=== PATIENT | male | born 1970 | race Caucasian/White ===

== ENCOUNTER 2020-09-08 07:34 | Outpatient (REF) | payer SELFPAY | END 2020-09-08 07:35 | disposition home or self-care (01) | LOC: HO.LAB 07:34 | PROVIDERS: Visit Provider Internal Medicine | DX: Z20.828 Contact with and (suspected) exposure to other viral communicable diseases (principal) | CPT/HCPCS: C9803; U0003 ==

== ENCOUNTER 2021-06-13 01:39 | Emergency (ER) | payer SELFPAY ==
[2021-06-13 01:47] VITALS: BP 157/97; PULSE 79; RESP 16; TEMP 35.9; O2SAT 97; BMI 31.2
[2021-06-13 04:00] VITALS: BP 148/67; PULSE 79; RESP 16; TEMP 35.9; O2SAT 97
--- NOTE | 2021-06-13 05:03 | PC.NURSE ---
patient coming up to the desk, asking when he will be seen by a provider. provider is tied up with multiple critically ill patients. provider is aware that patient is waiting to be seen.
--- NOTE | 2021-06-13 05:18 | PC.NURSE ---
Patient upset that he has been waiting to see the ED provider for 3 hrs. I explained that the provider would be over to see him as soon as she was available. He asked if we could not see him then just tell him. I assured him that he would be seen by a provider but that it might not be for at least another hour. Patient stated that he had to go to work and left without being seen. He stated I only came here to get the wax taken out of my ear. I apologized for the wait.
== END 2021-06-13 05:38 | disposition left against medical advice (07) ==
PROVIDERS: Emergency Provider Emergency Medicine; PCP Hospitalist
DX: H92.03 Otalgia, bilateral (principal); H61.21 Impacted cerumen, right ear
CPT/HCPCS: 99281; 99284

== ENCOUNTER → 2022-06-28 11:01 | Outpatient (BNVA) | payer SELFPAY | PROVIDERS: PCP Hospitalist; Visit Provider Physician Assistant Medical | DX: Z02.79 Encounter for issue of other medical certificate (principal) ==

== ENCOUNTER 2024-04-22 09:10 | Outpatient (AMB) | payer SELFPAY ==
--- NOTE | 2024-04-22 10:07 | AM.OFFWIN_ITS ---
Intake Vital Signs 04/22/24 10:08 Height 6 ft Weight 208 lb BMI 28.2 BP 120/82 Blood Pressure Location Rt brachial Position Sitting Pulse 76 Pulse Source Pulse Oximeter Pulse Oximetry (%) 98 Oxygen Delivery Method Room Air Intake Visit Reasons: Hemorroids/ [phone] Intake Note: pt here c/o hemorrhoids and issues having a BM, pt states it takes him about 4- 5hrs to be able to evacuate which has been going on for about 3yrs. Patient Tobacco Use Status: Tobacco use Unknown Allergies No Known Allergies Allergy (Verified 04/22/24 10:17) Do you need a note to return to daycare/school/sports/work: No HPI Hemorroids/ [phone] HPI Details This note is constructed using voice recognition software. While every effort has been made to ensure accuracy, substation engineer errors may have been included. The patient is a 53 year old male who presents to the clinic today with chronic constipation and hemorrhoids for the past several years. He notes that he has been seen a few times walk-in clinic and has been prescribed different medications to help with moving his bowels, however they never seems to completely work. As a result of being constipated spends several hours in the morning attempting to evacuate his bowels without success sometimes up to 5 hours. He will spend an hour and a have in 1 sitting before getting up which he notes does seem to worsen his hemorrhoids. He also notes that in the past year he has lost at least 25 lb intentionally, by cutting out certain foods, as well as increasing his dietary fiber by having at least 2-3 servings of fruits and vegetables each day. He reports that he drinks water very regularly, and does not have caffeine, aside from 5 hour energy drinks. When he does take the 5 hour energy he is able to evacuate his bowels slightly better. He has tried Metamucil daily for quite some time without any relief. He is not interested in being prescribed any medication today, and is simply interested in being established with a primary care provider, so that he can both address his constipation issues as well as his outstanding health screenings. He has never had a colonoscopy, and does wish to have 1. [facility] Social History Alcohol intake: unknown Patient Tobacco Use Status: Tobacco use Unknown Review of Systems Const All systems reviewed & are unremarkable except as noted in HPI and below Physical Exam Vital Signs: Last Vital Signs Pulse 76 04/22/24 10:08 BP 120/82 04/22/24 10:08 Pulse Ox 98 04/22/24 10:08 Oxygen Delivery Method Room Air 04/22/24 10:08 BMI result Body Mass Index 28.2 Const General: cooperative, healthy appearing, comfortable, no acute distress and alert Orientation/consciousness: patient oriented x3 Limitations: no limitations Resp Effort & Inspection: normal respiratory effort and able to speak in complete sentences Auscultation: clear to auscultation bilaterally Cardio Jugular venous distension: no JVD Palpation: normal PMI Rate: regular rate Heart sounds: S1 normal heart sound present, S2 normal heart sound present, no click, no gallops, no murmurs and no rubs GI Other: Patient declined rectal exam or visualization of hemmorhoids. Inspection: Yes normal to inspection, No abdominal wall ecchymosis and No distended Palpation (GI): Soft to palpation and nontender Percussion: Yes normal to percussion Auscultation: normal bowel sounds Skin General skin exam: no rashes or lesions noted, elasticity normal and turgor normal Neuro General: patient oriented x3 Psych Appearance: grossly normal Mental Status: mental status grossly normal Speech and movement: Normal speech and movement present Affect: normal affect Assessment & Plan Assessment & Plan (1) Constipation: Code(s): K59.00 - Constipation, unspecified Qualifiers: Constipation type: unspecified constipation type Qualified Code(s): K59.00 - Constipation, unspecified Plan: Chronic in nature, advised ongoing use of increased dietary and supplemental fiber. Consider daily Metamucil or similar, versus MiraLax. Offered prescription of laxatives and softeners, however patient declined at this time. Advised patient to follow with PCP, he was provided with referral phone number for today for a primary care provider. Discussed that patient does require at bare minimum a screening colonoscopy due to age, but may benefit from diagnostic she had additional concerns arise. Advised patient to continue with hydration efforts, and additional walking to help with bowel motility. Advised patient to keep stool on softer side to reduce risk of worsening hemorrhoids. Given lack of bleeding, or concerns of bleeding at this time, patient advised to follow up with PCP as needed. Plan See above for full details and plan. Coding Level of Care Code Est Pt Level 3 (26228) Diagnoses Constipation, unspecified constipation type K59.00 Constipation type: unspecified constipation type
[2024-04-22 10:08] VITALS: BP 120/82; PULSE 76; O2SAT 98; BMI 28.2
== END 2024-04-22 10:45 | disposition home or self-care (01) ==
PROVIDERS: Visit Provider Registered Nurse
DX: K59.00 Constipation, unspecified (principal)
CPT/HCPCS: 99213

== ENCOUNTER → 2024-10-14 08:07 | Outpatient (BNVA) | payer SELFPAY | PROVIDERS: Visit Provider Physician Assistant Medical | DX: Z02.79 Encounter for issue of other medical certificate (principal) ==

== ENCOUNTER 2024-12-24 10:51 | Inpatient (IN) | payer OTHER, SELFPAY ==
[2024-12-24] VITALS (26 sets, daily range): BP systolic 104–168; BP diastolic 50–94; PULSE 69–100; RESP 12–20; TEMP 36.6–36.9; O2SAT 95–100; BMI 29.1
--- NOTE | 2024-12-24 | ECG_ITS ---
Test Reason : SOB Blood Pressure : */* mmHG Vent. Rate : 76 BPM Atrial Rate : 76 BPM P-R Int : 146 ms QRS Dur : 82 ms QT Int : 390 ms P-R-T Axes : 51 -1 8 degrees QTcB Int : 438 ms Normal sinus rhythm Normal ECG No previous ECGs available Referred By: Anai Abraham Electronically Signed By: MINA CREWS MD
--- NOTE | ~2024-12-24 | CT_ITS ---
EXAMINATION: CT CHEST WITHOUT CONTRAST CLINICAL INFORMATION: Shortness of breath. Cough. COMPARISON: None available. TECHNIQUE: Multidetector volumetric CT imaging of the chest was obtained without the IV contrast administration. Axial MIP volume rendering provided. Sagittal and coronal reformatted images were obtained. This CT examination was performed using dose optimization techniques as appropriate, variously including the following: *Automated exposure control *Adjustment of mA and/or kV according to patient size (this includes techniques or standardized protocols for targeted exams where dose is matched to indication/reason for exam; i.e. extremities or head) *Use of iterative reconstruction technique DLP: 305.40 mGy centimeter FINDINGS: INSTRUMENTATION CHEMIST: EKG wires overlapping the chest. LUNGS: There is a 3 mm noncalcified pulmonary groundglass in the apical posterior segment left upper lung lobe. No bronchiectasis. No honeycombing. Millimeter noncalcified nodule beneath the right minor fissure. Respiratory airways is patent. MEDIASTINUM: No lymphadenopathy. No aneurysm, thoracic aorta. No pericardial effusion. Heart is not enlarged. PLEURA: No pleural effusion. No pneumothorax. AXILLA: No lymphadenopathy. UPPER ABDOMEN: There is a 1.8 cm lobulated hypodensity in the right hepatic lobe. OSSEOUS STRUCTURES: Multilevel mild thoracic spondylosis. No acute fracture or listhesis. CT/CT chest w IV con IMPRESSION: Nonspecific less than 3 mm noncalcified pulmonary nodules, apical posterior segment left upper lung lobe and beneath the right minor fissure. Fleischner guidelines were followed. Electronically signed by: Ritchie Hernandez MD 12/24/2024 02:47 PM EDT
--- NOTE | ~2024-12-24 | CT_ITS ---
EXAMINATION: CT ABDOMEN AND PELVIS WITHOUT AND WITH CONTRAST CLINICAL INFORMATION: Shortness of breath. Anemia. Intermittent rectal bleeding. COMPARISON: None available. TECHNIQUE: Multidetector volumetric imaging was performed of the abdomen and pelvis before and after the IV administration of 80 mL of Omnipaque 350 strength intravenous contrast. Sagittal and coronal reformatted images were obtained on the technologist's workstation. This CT examination was performed using dose optimization techniques as appropriate, variously including the following: *Automated exposure control *Adjustment of mA and/or kV according to patient size (this includes techniques or standardized protocols for targeted exams where dose is matched to indication/reason for exam; i.e. extremities or head) *Use of iterative reconstruction technique. DLP: 1738.51 mGy centimeter. FINDINGS: LUNG BASES: No acute airspace disease, lung bases. LIVER, GALLBLADDER, AND BILIARY TREE: Liver measures 15 cm. There is a 2 mm low density in the right hepatic dome, too small to be fully characterized. There is a 1.8 cm septated and lobulated low density in the right hepatic lobe. The portal veins are patent. The intrahepatic portion of the IVC is patent. No pericholecystic fluid collection or gallbladder wall thickening. Questionable small tiny gallstones. No intrahepatic or extrahepatic biliary ductal dilatation.. PANCREAS: No focal lesion. No peripancreatic fluid collection. No main pancreatic ductal dilatation. SPLEEN: 10 cm. No focal lesion. ADRENAL GLANDS: No nodular lesions. KIDNEYS AND URETERS: No hydronephrosis. No nephrolithiasis. There is a 9 mm exophytic septated lesion in the anterior midportion right kidney. BLADDER: Fluid-filled. GASTROINTESTINAL TRACT: There is no extraluminal/IV contrast extravasation pulling into the large intestine I do not see gross masses in the large intestine. There is no wall thickening. There is no intestinal obstruction pattern. Abundant stool in the right hemicolon. No ascites. No pneumoperitoneum. Small 3 mm gas-filled diverticulum morphology pattern in the second and third portion of the duodenum. No pneumatosis intestinalis. The appendix appears short. ABDOMINAL WALL: No gross umbilical hernia. LYMPH NODES: Nonspecific prominent lymph nodes, mesenteric and retroperitoneal. VASCULAR: Mixed plaques abdominal aorta wall without aneurysm or dissection. PELVIC VISCERA: No enlarged prostate gland. OSSEOUS STRUCTURES: Moderate to severe spondylosis at L5-S1. CT/CT gi bleed abd pel wo/w IVcon IMPRESSION: Probable diverticula in the duodenum. No gross intraluminal hemorrhage, large intestine. 9 mm exophytic septated lesion, anterior midportion right kidney. 1.8 cm septated cystic lesion, right hepatic lobe. Moderate to severe spondylosis L5-S1. Fleischner guidelines were followed. Electronically signed by: Ritchie Hernandez MD 12/24/2024 03:03 PM EDT
--- NOTE | 2024-12-24 11:31 | ED.GENADULT ---
HPI - General Adult General Chief complaint: Recheck/Abnormal Lab/Rx Stated complaint: transfusion sent in from [facility] Time Seen by Provider: 12/24/24 11:35 Source: patient Mode of arrival: ambulatory Limitations: no limitations History of Present Illness ED Provider: salena marie np HPI narrative: Patient is a 54-year-old male who presents emergency department for evaluation. Patient admits that over the past 3-4 weeks he has been feeling shortness of breath particularly with exertion, states he exercises daily walks with his dog up a hill/ up mountains. He has noticed that he is particularly short of breath when walking up hill which is abnormal for him. Additionally states that while doing pushups he has noted that once he gets up he is short of breath and lightheaded. Symptoms were not resolving after the past 3-4 weeks which brought him to an urgent care yesterday. He states that he had a chest x-ray done as well as blood work. He received a call from the urgent care today advising him to promptly present to emergency department for evaluation, that he was anemic and needed a blood transfusion with a hemoglobin of 6.7, and states they told me I need to get a CT on my chest . 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 He does admit to having intermittent rectal bleeding typically 2 to 3 times a week for at least 12 years. He has noticed it to be bright red as well as dark red, mainly with bowel movements but has also experienced this without having a bowel movement. He states that he has a friend whose is a physician customer service assistant an ordered a colonoscopy 2 months ago through [facility] and was advised that there were 2 polyps of which were removed but no cancerous findings. he denies any frequent usage of NSAID, reports that he may consume alcohol once weekly on the weekend 2-3 drinks, uses chewing tobacco. He has not been seen by a doctor aside who was in at least 12 years. Denies fevers, chills, headache, vision changes, chest pain, productive cough, nausea, vomiting, recent unintentional weight loss, constipation, diarrhea Related Data Home Medications ?Medication ?Instructions ?Recorded ?Confirmed finasteride 1 mg tablet (Propecia) 1 mg PO DAILY 11/09/21 Previous Rx's ?Medication ?Instructions ?Recorded hydrocortisone acetate 25 mg 25 mg TN BEDTIME #24 ea 11/21/22 rectal suppository (Anusol-HC) sennosides 8.6 mg-docusate sodium 1 tab-cap PO BEDTIME 90 days #90 11/21/22 50 mg tablet (Senokot-S) tabs Allergies Allergy/AdvReac Type Severity Reaction Status Date / Time No Known Allergies Allergy Verified 12/24/24 11:23 Review of Systems Review of Systems: Yes all other systems are reviewed and are negative [facility] Past Medical History Attestation statement: The following information was validated with the patient. Source: old records reviewed Social History Social History (System 06/09/24 @ 16:30 by Nichole Oliver) Alcohol intake: unknown Patient Tobacco Use Status: Tobacco use Unknown Advance Directives: Yes Advance Directives Information Provided: Yes Advance Directives on File: No Physical Exam ED Vital Signs: Vital Signs - 24 hr 12/24/24 11:21 12/24/24 14:37 12/24/24 14:55 Temperature 98.4 F 98.2 F 97.9 F Pulse Rate 84 82 72 Respiratory Rate 18 18 20 Blood Pressure 138/71 134/81 135/87 Pulse Oximetry 98 Oxygen Delivery Method Room Air 12/24/24 16:24 Temperature 98.1 F Pulse Rate 72 Respiratory Rate 16 Blood Pressure 106/65 Pulse Oximetry 97 Oxygen Delivery Method Room Air BMI result Body Mass Index 29.1 Appearance: Alert.?Oriented to person, place and time. No acute distress.?Normal affect. Eyes: Pupils equal, round and reactive to light.? ENT: Pharynx normal.?? Neck: Normal inspection.? Neck supple.?? CVS: Heart sounds normal. Normal heart rate and rhythm.? Pulses normal.?? Respiratory: No respiratory distress.? Lung sounds clear to auscultation bilaterally?? Abdomen: Soft and non-tender. Normoactive bowel sounds. No pulsatile mass.?? rectal: performed with biochemist ED JONNIE Soriano; external hemorrhoids non thrombosed without active bleeding, no palpable rectal mass. No appreciable obvious blood in the rectal vault Skin: Skin warm and dry.? Normal skin color.? .?? Extremities: No lower extremity edema.? Neuro: Moves all extremities spontaneously. Sensation intact bilaterally. No focal neuro deficits. Ambulates with normal steady gait. Course Course Course Narrative: RME, this is a rapid medical exam performed by Murtaza Pierre please refer to primary provider for complete H&P- 54-year-old male presents for evaluation of shortness of breath. Patient went to urgent care and reportedly had labs where his hemoglobin was ?6.7. ? He came with a chest x-ray which I brought over to the radiology department to have them upload into his chart. The patient was sent here for a blood transfusion and further workup. He reports rectal bleeding for the last 12 years. He does report having had a colonoscopy 2 months ago at a [facility] and was told ?everything is normal. ? he was not anticoagulated. Plan for labs including type and screen. Reevaluation(s) Reevaluation #1: CBC is without leukocytosis, has a microcytic anemia with critical hemoglobin of 5.7, hematocrit 21.2, iron panel consistent with EVERTON, no thrombocytopenia. chemistries overall unremarkable, no ESTEVAN, overall unremarkable LFTs. Anticipating admission to medicine service due to symptomatic anemia. spoke with hospitalist Salena RAZA Time: 12:14 Medications Administered Discontinued Medications Generic Name Dose Route Start Last Admin Trade Name Freq PRN Reason Stop Dose Admin Sodium Chloride 1,000 mls @ 999 mls/hr 12/24/24 12:00 12/24/24 13:40 Ns IV 12/24/24 13:00 Infused .Q1H1M MONSTER Infusion Iohexol 100 ml 12/24/24 14:34 12/24/24 14:35 Iohexol 350 Mg/Ml 100 Ml Infus..Btl IV 12/24/24 14:35 80 ml ONCE ONE Administration Medical Decision Making Medical Decision Making [facility] Narrative: patient is a 54-year-old male with no reported past medical history who presents emergency department for evaluation of ongoing shortness of breath over the past 3-4 weeks, outpatient evaluation at urgent care revealed critical anemia with a hemoglobin of 6.7, and advisement that he should receive a CT of the chest, he did present with a disc for CXR which was provided to Radiology. Admits to chronic nonproductive cough without any acute change. ROS is positive for intermittent rectal bleeding as per HPI, had a colonoscopy 2 months ago with findings of benign polyps otherwise unremarkable. Has not seen a primary care doctor in at least 12 years. Will obtain CBC to evaluate for leukocytosis/ anemia, CMP and lipase to evaluate for abnormal electrolytes /abnormal renal function/ abnormal hepatic/biliary function, type and screen. Obtaining CT of the chest abdomen and pelvis with GI bleed protocol, occult stool. Blood transfusion consent form reviewed with patient, indications for transfusion, possible complications, consent was obtained. Received call from lab regarding repeat hemoglobin today critical at 5.7 down 1 point as per verbalization of his result from urgent care yesterday. Differential Diagnosis Differential Diagnoses: The differential diagnosis associated with the presentation includes ( symptomatic anemia, GI bleed, urgency, EVERTON ) Admission/Observation Consideration of admission/observation: Escalation of care including admission/observation considered Lab Data MDM Lab Attestation statement: I reviewed the patient's lab results. ( See course narrative) 12/24/24 11:39 12/24/24 11:39 Labs: Lab Results 12/24/24 12/24/24 12/24/24 Range/Units 11:39 11:58 12:37 WBC 5.0 (4.8-10.8) X10*3/uL RBC 3.58 L (4.60-5.80) X10*6/uL Hgb 5.7 L* (14.0-18.0) g/dl Hct 21.2 L (42.0-52.0) % MCV 59.2 L (80.0-98.0) fL MCH 15.9 L (27.0-33.0) pg MCHC 26.9 L (31.0-36.0) g/dl RDW 20.1 H (11.0-16.0) % Plt Count 238 (160-400) X10*3/uL MPV 10.0 (9.4-12.4) fL Immature Gran % (Auto) 0.4 (0.0-0.4) % Neut % (Auto) 60.7 (45-73) % Lymph % (Auto) 26.0 (20-40) % [place] % (Auto) 11.3 H (2-11) % Eos % (Auto) 1.0 (0-4) % Baso % (Auto) 0.6 (0-2) % Lymph # (Auto) 1.3 (1.2-4.9) X10*3/uL [place] # (Auto) 0.6 (0.1-1.2) X10*3/uL Eos # (Auto) 0.1 (0.0-0.4) X10*3/uL Baso # (Auto) 0.0 (0.0-0.2) X10*3/uL Abs Immat Gran (auto) 0.02 (0.00-0.03) X10*3/uL Absolute Neuts (auto) 3.0 (2.0-8.3) x10*3/uL Absolute Nucleated RBC 0.000 (0.0-0.012) X10*3/uL Nucleated RBC % (auto) 0.0 (0.0-0.2) /100WBC Hold Purple Top SEE NOTE Sodium 139 (135-145) mmol/L Potassium 4.0 (3.3-5.1) mmol/L Chloride 110 H (96-108) mmol/L Carbon Dioxide 25 (22-29) mmol/L Anion Gap 8 L (12-20) BUN 18 H (9-16) mg/dL Creatinine 0.81 (0.5-1.4) mg/dL Estim Creat Clear Calc 123.2 Estimated GFR > 60 Random Glucose 85 (60-115) mg/dL Calcium 8.8 (8.4-10.2) mg/dL Magnesium 2.0 (1.6-2.6) mg/dL Iron 9 L (45-160) mcg/dL TIBC 387 (228-428) mcg/dL % Saturation 2 L (15-50) % Unsat Iron Binding 378 ug/dL Total Bilirubin 0.3 (0.0-1.0) mg/dL Direct Bilirubin 0.1 (0.0-0.5) mg/dL AST 33 (5-37) U/L ALT 8 (0-40) U/L Alkaline Phosphatase 30 L (39-117) U/L B-Natriuretic Peptide 52 (<100) pg/mL Total Protein 6.8 (6.5-8.0) g/dL Albumin 3.9 (3.5-5.0) g/dL Hold Red Top See Note Urine Color Urine Appearance Urine pH (5.0-9.0) Ur Specific [place] (1.005-1.025) Urine Protein (Neg-Trace) mg/dL Urine Glucose (UA) (Negative) mg/dL Urine Ketones (Negative) mg/dL Urine Blood (Negative) Urine Nitrite (Negative) Ur Leukocyte Esterase (Negative) Stool Occult Blood NEGATIVE (NEGATIVE) Urine Opiates Screen (Not Detect) Ur Buprenorphine Scrn (Not Detect) ng/mL Ur Oxycodone Screen (Not Detect) ng/mL Urine Methadone Screen (Not Detect) ng/mL Urine Fentanyl Screen (Not Detect) Ur Barbiturates Screen (Not Detect) Ur Phencyclidine Scrn (Not Detect) Ur Amphetamines Screen (Not Detect) U Benzodiazepines Scrn (Not Detect) Urine Cocaine Screen (Not Detect) U Marijuana (THC) Screen (Not Detect) Blood Type A Positive Antibody Screen NEGATIVE Crossmatch See Detail 12/24/24 Range/Units 12:45 WBC (4.8-10.8) X10*3/uL RBC (4.60-5.80) X10*6/uL Hgb (14.0-18.0) g/dl Hct (42.0-52.0) % MCV (80.0-98.0) fL MCH (27.0-33.0) pg MCHC (31.0-36.0) g/dl RDW (11.0-16.0) % Plt Count (160-400) X10*3/uL MPV (9.4-12.4) fL Immature Gran % (Auto) (0.0-0.4) % Neut % (Auto) (45-73) % Lymph % (Auto) (20-40) % [place] % (Auto) (2-11) % Eos % (Auto) (0-4) % Baso % (Auto) (0-2) % Lymph # (Auto) (1.2-4.9) X10*3/uL [place] # (Auto) (0.1-1.2) X10*3/uL Eos # (Auto) (0.0-0.4) X10*3/uL Baso # (Auto) (0.0-0.2) X10*3/uL Abs Immat Gran (auto) (0.00-0.03) X10*3/uL Absolute Neuts (auto) (2.0-8.3) x10*3/uL Absolute Nucleated RBC (0.0-0.012) X10*3/uL Nucleated RBC % (auto) (0.0-0.2) /100WBC Hold Purple Top Sodium (135-145) mmol/L Potassium (3.3-5.1) mmol/L Chloride (96-108) mmol/L Carbon Dioxide (22-29) mmol/L Anion Gap (12-20) BUN (9-16) mg/dL Creatinine (0.5-1.4) mg/dL Estim Creat Clear Calc Estimated GFR Random Glucose (60-115) mg/dL Calcium (8.4-10.2) mg/dL Magnesium (1.6-2.6) mg/dL Iron (45-160) mcg/dL TIBC (228-428) mcg/dL % Saturation (15-50) % Unsat Iron Binding ug/dL Total Bilirubin (0.0-1.0) mg/dL Direct Bilirubin (0.0-0.5) mg/dL AST (5-37) U/L ALT (0-40) U/L Alkaline Phosphatase (39-117) U/L B-Natriuretic Peptide (<100) pg/mL Total Protein (6.5-8.0) g/dL Albumin (3.5-5.0) g/dL Hold Red Top Urine Color Yellow Urine Appearance Clear Urine pH 7.5 (5.0-9.0) Ur Specific [place] <= 1.005 (1.005-1.025) Urine Protein Negative (Neg-Trace) mg/dL Urine Glucose (UA) Negative (Negative) mg/dL Urine Ketones Negative (Negative) mg/dL Urine Blood Negative (Negative) Urine Nitrite Negative (Negative) Ur Leukocyte Esterase Negative (Negative) Stool Occult Blood (NEGATIVE) Urine Opiates Screen Not Detected (Not Detect) Ur Buprenorphine Scrn Not Detected (Not Detect) ng/mL Ur Oxycodone Screen Not Detected (Not Detect) ng/mL Urine Methadone Screen Not Detected (Not Detect) ng/mL Urine Fentanyl Screen Not Detected (Not Detect) Ur Barbiturates Screen Not Detected (Not Detect) Ur Phencyclidine Scrn Not Detected (Not Detect) Ur Amphetamines Screen Not Detected (Not Detect) U Benzodiazepines Scrn Not Detected (Not Detect) Urine Cocaine Screen Not Detected (Not Detect) U Marijuana (THC) Screen Not Detected (Not Detect) Blood Type Antibody Screen Crossmatch Radiology Impression Discussion of test interpretation with radiology: I have reviewed the radiologist's reading. Radiologist Impression: CT/CT chest w IV con IMPRESSION: Nonspecific less than 3 mm noncalcified pulmonary nodules, apical posterior segment left upper lung lobe and beneath the right minor fissure. Fleischner guidelines were followed. CT/CT gi bleed abd pel wo/w IVcon IMPRESSION: Probable diverticula in the duodenum. No gross intraluminal hemorrhage, large intestine. 9 mm exophytic septated lesion, anterior midportion right kidney. 1.8 cm septated cystic lesion, right hepatic lobe. Moderate to severe spondylosis L5-S1. External Record Review External record reviewed: Outpatient record Discharge Plan Discharge Clinical Impression: Symptomatic anemia, Rectal bleed Patient Disposition: Admitted As Inpatient
[2024-12-24 11:44] LABS: MANUAL DIFF FLAG NO
[2024-12-24 11:50] LABS: Basophils Percent Auto 0.6 % (0-2); Eosinophils Absolute Auto 0.1 X10*3/uL (0.0-0.4); Hematocrit 21.2 % (42.0-52.0); Imm Gran Abs Auto 0.02 X10*3/uL (0.00-0.03); Imm Gran Pct Auto 0.4 % (0.0-0.4); Lymphocytes Absolute Auto 1.3 X10*3/uL (1.2-4.9); Mean Corpuscular HGB Conc 26.9 g/dl (31.0-36.0); Mean Corpuscular Hemoglobin 15.9 pg (27.0-33.0); Monocytes Absolute Auto 0.6 X10*3/uL (0.1-1.2); Monocytes Percent Auto 11.3 % (2-11); Neutrophils Percent Auto 60.7 % (45-73); Platelet Count 238 X10*3/uL (160-400); Red Blood Count 3.58 X10*6/uL (4.60-5.80); Red Cell Distribution Width 20.1 % (11.0-16.0)
[2024-12-24 11:53] LABS: Mean Corpuscular Volume 59.2 fL (80.0-98.0)
[2024-12-24 11:55] LABS: Hemoglobin 5.7 g/dl (14.0-18.0)
[2024-12-24 12:05] LABS: OBS Int Ctl Valid YES; OBS1 NEGATIVE (NEGATIVE)
[2024-12-24 12:37] LABS: Alanine Aminotransferase 8 U/L (0-40); Albumin Level 3.9 g/dL (3.5-5.0); Alkaline Phosphatase 30 U/L (39-117); Anion Gap 8 (12-20); Aspartate Amino Transferase 33 U/L (5-37); Bilirubin Direct 0.1 mg/dL (0.0-0.5); Bilirubin Total 0.3 mg/dL (0.0-1.0); Blood Urea Nitrogen 18 mg/dL (9-16); Calcium 8.8 mg/dL (8.4-10.2); Carbon Dioxide 25 mmol/L (22-29); Chloride 110 mmol/L (96-108); Creatinine Clr Calc Pharmacy 123.2; Estimated Glomerular Filt Rate > 60; Glucose Random 85 mg/dL (60-115); Iron 9 mcg/dL (45-160); Percent Iron Saturation 2 % (15-50); Sodium 139 mmol/L (135-145); Total Iron Binding Capacity 387 mcg/dL (228-428); Total Protein 6.8 g/dL (6.5-8.0); Unsaturated Iron Binding 378 ug/dL
[2024-12-24] MEDS: 0.9 % Sodium Chloride 1,000 ML 999 ML IV (12:40)
[2024-12-24 12:44] LABS: B Type Natriuretic Peptide 52 pg/mL (<100)
[2024-12-24 12:53] LABS: Appearance Urine Clear; Color Urine Yellow; Glucose Urine UA Negative (Negative); Leukocyte Esterase Urine Negative (Negative); Nitrite Urine Negative (Negative); PH 7.5 (5.0-9.0); Specific Gravity - Urine <= 1.005 (1.005-1.025); Urine Blood Negative (Negative); Urine Ketones Negative (Negative); Urine Protein Negative (Neg-Trace)
[2024-12-24 13:06] LABS: Amphetamine Screen Urine Not Detected (Not Detect); Barbiturates, Urine Not Detected (Not Detect); Benzodiazepines Screen Urine Not Detected (Not Detect); Buprenorphine Scr Not Detected (Not Detect); Cannabinoid Screen Urine Not Detected (Not Detect); Cocaine Screen Urine Not Detected (Not Detect); Fentanyl, urine Not Detected (Not Detect); Methadone Screen, Urine Not Detected (Not Detect); Opiate Screen Urine Not Detected (Not Detect); Oxycodone Screen Urine Not Detected (Not Detect); Phencyclidine Screen Urine Not Detected (Not Detect)
[2024-12-24] MEDS: iohexoL 350 MG/ML 100 ML INFUS..BTL IV (14:35)
--- NOTE | 2024-12-24 16:43 | P.HPHOSP_ITS ---
History of Present Illness Date of Service: 12/24/24 Attending physician on admission: Anai Abraham Chief Complaint: Shortness of breath Jose Yun is a 54 years old man with past medical history significant for intermittent rectal bleeding over the last 5-6 years and internal hemorrhoids presents to the emergency department complaining of worsening shortness on breath over the last month upon exercising and dizziness will hold doing pushups + standing up. Any associated headache, loss of consciousness, chest pain, abdominal pain, nausea or vomiting. He denies fever or chills. He denied taking blood thinners or NSAIDs. He only takes Propecia for baldness. He had a colonoscopy about 2-3 months ago and was found to have polyps (benign). He never had upper endoscopy. He drinks alcohol occasionally, eats marijuana gummies and chews tobacco. In the ED, he was found to have stable vital signs. Blood workup was remarkable for hemoglobin of 5.7 and hematocrit of 21.2. Platelets are normal. There are no significant electrolyte imbalances except for some degree of hyperchloremia. BUN is 18 (elevated) and creatinine is normal. LFTs are unremarkable. BNP, total protein and albumin are normal. UA is normal. Urine toxicology is normal. Chest, abdominal pelvis CT showed nonspecific less than 3 mm noncalcified pulmonary nodules, apical posterior segment left lung and beneath the high melena or fissure, probable diverticulum in the duodenum, no intraluminal hemorrhage, 9 mm of 80 septal lesions, anterior midportion right kidney and 1.8 cm septated cyst in the right hepatic lobe. Review of Systems 2 Review of Systems: All 12 systems were reviewed and normal except as noted in HPI. [facility] Social History (System 06/09/24 @ 16:30 by Nichole Oliver) Alcohol intake: unknown Patient Tobacco Use Status: Tobacco use Unknown Advance Directives: Yes Advance Directives Information Provided: Yes Advance Directives on File: No Meds Allergies Allergy/AdvReac Type Severity Reaction Status Date / Time No Known Allergies Allergy Verified 12/24/24 11:23 Active Medications: Current Medications Acetaminophen (Acetaminophen 325 Mg Tablet) 975 mg PO Q6H PRN PRN Reason: Pain, Mild 1-3,fever,headache Pantoprazole Sodium (Pantoprazole Sodium 40 Mg/10 Ml Vial) 40 mg IVPUSH Q12H [facility] Sodium Chloride (0.9 % Sodium Chloride Flush 3 Ml Syringe) 3 ml IVFLUSH QSHIFT [facility] Home Medications ?Medication ?Instructions ?Recorded ?Confirmed ?Last Taken ?Type finasteride 1 mg tablet (Propecia) 1 mg PO DAILY 11/09/21 Unknown History Physical Exam 2 Vital Signs and Narrative: Vital Signs: Last Vital Signs Temp 98.1 F 12/24/24 16:24 Pulse 72 12/24/24 16:24 Resp 16 12/24/24 16:24 BP 106/65 12/24/24 16:24 Pulse Ox 97 12/24/24 16:24 O2 Del Method Room Air 12/24/24 16:24 BMI result Body Mass Index 29.1 Constitutional - Awake and Alert, No apparent distress. Pleasant. Cooperative. HEENT - PERRL, EOMI Heart - RRR, No murmurs Lungs - Normal lung expansion, Normal respiratory effort, No respiratory distress, CTA bilaterally Abdomen - NT / ND; +BS; No rebound or guarding Extremities - no calf tenderness bilaterally, no swelling Musculoskeletal - Normal inspection, normal ROM Skin - Warm/Dry. No jaundice. (+) pallor Neurological - Alert & oriented x3. Moving all extremities spontaneously. Psychological - Appropriate affect Results Labs 12/24/24 11:39 12/24/24 11:39 Labs: Laboratory Results - last 24 hr 12/24/24 12/24/24 12/24/24 11:39 11:58 12:37 MCV 59.2 L MCH 15.9 L MCHC 26.9 L RDW 20.1 H Plt Count 238 MPV 10.0 Immature Gran % (Auto) 0.4 Neut % (Auto) 60.7 Lymph % (Auto) 26.0 Wallace % (Auto) 11.3 H Eos % (Auto) 1.0 Baso % (Auto) 0.6 Lymph # (Auto) 1.3 [place] # (Auto) 0.6 Eos # (Auto) 0.1 Baso # (Auto) 0.0 Abs Immat Gran (auto) 0.02 Absolute Neuts (auto) 3.0 Absolute Nucleated RBC 0.000 Nucleated RBC % (auto) 0.0 Hold Purple Top SEE NOTE Anion Gap 8 L Estim Creat Clear Calc 123.2 Estimated GFR > 60 Random Glucose 85 Calcium 8.8 Magnesium 2.0 Iron 9 L TIBC 387 % Saturation 2 L Unsat Iron Binding 378 Total Bilirubin 0.3 Direct Bilirubin 0.1 AST 33 ALT 8 Alkaline Phosphatase 30 L B-Natriuretic Peptide 52 Total Protein 6.8 Albumin 3.9 Hold Red Top See Note Urine Color Urine Appearance Urine pH Ur Specific [place] Urine Protein Urine Glucose (UA) Urine Ketones Urine Blood Urine Nitrite Ur Leukocyte Esterase Stool Occult Blood NEGATIVE Urine Opiates Screen Ur Buprenorphine Scrn Ur Oxycodone Screen Urine Methadone Screen Urine Fentanyl Screen Ur Barbiturates Screen Ur Phencyclidine Scrn Ur Amphetamines Screen U Benzodiazepines Scrn Urine Cocaine Screen U Marijuana (THC) Screen Blood Type A Positive Antibody Screen NEGATIVE Crossmatch See Detail 12/24/24 12:45 MCV MCH MCHC RDW Plt Count MPV Immature Gran % (Auto) Neut % (Auto) Lymph % (Auto) [place] % (Auto) Eos % (Auto) Baso % (Auto) Lymph # (Auto) [place] # (Auto) Eos # (Auto) Baso # (Auto) Abs Immat Gran (auto) Absolute Neuts (auto) Absolute Nucleated RBC Nucleated RBC % (auto) Hold Purple Top Anion Gap Estim Creat Clear Calc Estimated GFR Random Glucose Calcium Magnesium Iron TIBC % Saturation Unsat Iron Binding Total Bilirubin Direct Bilirubin AST ALT Alkaline Phosphatase B-Natriuretic Peptide Total Protein Albumin Hold Red Top Urine Color Yellow Urine Appearance Clear Urine pH 7.5 Ur Specific [place] <= 1.005 Urine Protein Negative Urine Glucose (UA) Negative Urine Ketones Negative Urine Blood Negative Urine Nitrite Negative Ur Leukocyte Esterase Negative Stool Occult Blood Urine Opiates Screen Not Detected Ur Buprenorphine Scrn Not Detected Ur Oxycodone Screen Not Detected Urine Methadone Screen Not Detected Urine Fentanyl Screen Not Detected Ur Barbiturates Screen Not Detected Ur Phencyclidine Scrn Not Detected Ur Amphetamines Screen Not Detected U Benzodiazepines Scrn Not Detected Urine Cocaine Screen Not Detected U Marijuana (THC) Screen Not Detected Blood Type Antibody Screen Crossmatch Imaging Radiologist's Impressions: Impressions Abdomen/Pelvis CT 12/24/24 11:58 IMPRESSION: Probable diverticula in the duodenum. No gross intraluminal hemorrhage, large intestine. 9 mm exophytic septated lesion, anterior midportion right kidney. 1.8 cm septated cystic lesion, right hepatic lobe. Moderate to severe spondylosis L5-S1. Fleischner guidelines were followed. Electronically signed by: Ritchie Hernandez MD 12/24/2024 03:[address] 12/24/24 13:46 IMPRESSION: Nonspecific less than 3 mm noncalcified pulmonary nodules, apical posterior segment left upper lung lobe and beneath the right minor fissure. Fleischner guidelines were followed. Electronically signed by: Ritchie Hernandez MD 12/24/2024 02:47 PM EDT RP Assessment and Plan (1) Rectal bleed: Status: Acute (2) Symptomatic anemia: Status: Acute Plan Jose Yun is a 54 years old man admitted with: * Symptomatic anemia. Likely source of GI losses. Admit to hospitalist service. NPO after midnight. Start treatment with Protonix IV. PRBC transfusions. Continue to monitor hemoglobin and hematocrit. GI consult. DVT prophylaxis: SCDs Code status: Full Patient will need hospitalization for at least 2 midnights for symptomatic anemia treatment of blood transfusion, IV antiacid treatment and evaluation by subspecialty. Quality Stroke Does the patient have a stroke diagnosis?: No VTE Prior VTE?: No VTE Risk Level:: Medical - moderate - high VTE Device Contraindication: N/A - Device Ordered VTE Drug Contraindication: Treatment Not Indicated
[2024-12-24] MEDS: Pantoprazole Sodium 40 MG/10 ML VIAL 80 MG IVPUSH (19:19)
--- NOTE | 2024-12-24 19:47 | P.EN_ITS ---
Event Note Date of Service: 12/24/24 Event Note: GI Consult-Full note dictated-History from patient and EMR Imp: 54yo male with chronic constipation and frequent rectal bleeding with either BRBPR with straining and/or [place] stools as per his description. He had a colonoscopy at [facility] 3-4 months ago and was told of 2 polyps that were removed, as well as hemorrhoids. He denies any UGI complaints, abdominal pain, or melena. He does not use any aspirin nor NSAIDs. He does not smoke or use any sig. amounts of EtOH. He has never had an upper endoscopy in the past. Diff dx: Chronic blood loss due to hemorrhoids, AVM's, polyps, GI noplasm, gastritis, ulcer disease, etc. Rec: Colonoscopy to R/O a missed lesion and an upper endoscopy. Full consent has been obtained from him for this, including risks of bleeding and perforation. If both studies are negative he may need a small bowel video capsule study and a surgical consult regarding his hemorrhoids. F/U Hgb, transfuse PRN, IV PPI. Will plan for this on Friday, 12/27, but call over weekend if he shows signs of active bleeding. I have placed diet orders for the weekend and will order the prep later. I D/W this with the patient and his brother in detail. They are both comfortable with this plan. Thanks Time Spent With Patient Time: Total time managing care of this patient today ____ minutes.
--- NOTE | 2024-12-24 20:12 | PHA.MEDREC ---
Pharmacy Consult ? Medication Reconciliation Pharmacy has completed the medication reconciliation. Pt states he is only on propecia that he obtains from the place that did his hair and viagara of an unknown dose. Only propecia put on medication list.
--- NOTE | 2024-12-24 20:49 | PC.NURSE ---
Patient has 18g IV access to left AC. Has received 2 units of RBCs without adverse reactions. Calm/cooperative. Frequently needs to urinate. Ambulates with steady gait. Pallor has improved since receiving RBCs. Ate [employer] burger & guyanese fries for dinner around 18:30 with a friend (Jurgen). Awaiting transport to [facility], admission for shortness of breath and symptomatic anemia. Vitals have been stable throughout shift. Care ongoing by this RN.
[2024-12-24 21:11] LABS: Hemoglobin 7.2 g/dl (14.0-18.0); Platelet Count 232 X10*3/uL (160-400)
[2024-12-24 21:13] LABS: Mean Corpuscular HGB Conc 28.8 g/dl (31.0-36.0); Mean Corpuscular Hemoglobin 18.4 pg (27.0-33.0); Mean Platelet Volume 10.2 fL (9.4-12.4); Red Blood Count 3.91 X10*6/uL (4.60-5.80); Red Cell Distribution Width 25.2 % (11.0-16.0); White Blood Count 5.7 X10*3/uL (4.8-10.8)
[2024-12-24 21:40] LABS: Mean Corpuscular Volume 63.9 fL (80.0-98.0); PLT ABN DIST 1
[2024-12-25] VITALS (7 sets, daily range): BP systolic 112–167; BP diastolic 67–98; PULSE 69–90; RESP 14–20; TEMP 36.6–37.3; O2SAT 96–100
[2024-12-25 06:51] LABS: Hematocrit 24.9 % (42.0-52.0); Hemoglobin 7.2 g/dl (14.0-18.0); Mean Corpuscular HGB Conc 28.9 g/dl (31.0-36.0)
[2024-12-25 06:53] LABS: Mean Corpuscular Hemoglobin 18.3 pg (27.0-33.0); Platelet Count 226 X10*3/uL (160-400); Red Blood Count 3.94 X10*6/uL (4.60-5.80); Red Cell Distribution Width 24.2 % (11.0-16.0); White Blood Count 5.7 X10*3/uL (4.8-10.8)
[2024-12-25 06:55] LABS: Mean Corpuscular Volume 63.2 fL (80.0-98.0); PLT ABN DIST 1
[2024-12-25] MEDS: Pantoprazole Sodium 40 MG/10 ML VIAL IVPUSH ×2 (07:03→17:34)
[2024-12-25] MEDS: 0.9 % Sodium Chloride Flush 3 ML SYRINGE IVFLUSH ×3 (07:03→20:05)
[2024-12-25 07:04] LABS: INTERNATIONAL NORM RATIO 0.9 (0.9-1.1); Prothrombin Time 10.9 SEC (10.9-12.4)
[2024-12-25 07:23] LABS: Anion Gap 10 (12-20); Blood Urea Nitrogen 13 mg/dL (9-16); Calcium 8.9 mg/dL (8.4-10.2); Carbon Dioxide 24 mmol/L (22-29); Chloride 111 mmol/L (96-108); Creatinine Clr Calc Pharmacy 124.7; Estimated Glomerular Filt Rate > 60; Glucose Random 90 mg/dL (60-115); Potassium 3.9 mmol/L (3.3-5.1); Sodium 141 mmol/L (135-145)
--- NOTE | 2024-12-25 08:17 | MHC.CM.PN ---
CM met with Patient at bedside. Patient lives alone in a house and he is functionally independent. Home/self care is Patient's goal and CM has initiated and will follow for dc planning. Patient has no PCP (PCP brochure to be given) and he declined the completion of a HCP. Patient's Co-worker/Jurgen, will transport to home at time of dc.
--- NOTE | 2024-12-25 10:27 | HO.PM.IMPN ---
Subjective Subjective Date of Service: 12/25/24 Interval History: feels better after transfusion Physical Exam Vital Signs: Vital Signs: Last Vital Signs Temp 98.3 F 12/25/24 07:50 Pulse 69 12/25/24 07:50 Resp 20 12/25/24 07:50 BP 112/71 12/25/24 07:50 Pulse Ox 97 12/25/24 07:50 O2 Del Method Room Air 12/25/24 07:50 BMI result Body Mass Index 29.1 General: AO X 3, no acute distress Resp: CTA bilateral, no accessory muscles used CVS: S1,S2,RRR GI: soft, non tender, non distended Neuro: motor grossly intact, alert Psych: appropriate affect, appropriate insight Objective Data Active Medications Acetaminophen (Acetaminophen 325 Mg Tablet) 975 mg PO Q6H PRN PRN Reason: Pain, Mild 1-3,fever,headache Pantoprazole Sodium (Pantoprazole Sodium 40 Mg/10 Ml Vial) 40 mg IVPUSH Q12H [facility] Last Admin: 12/25/24 07:03 Dose: 40 mg Documented By: NEGRITO Sodium Chloride (0.9 % Sodium Chloride Flush 3 Ml Syringe) 3 ml IVFLUSH QSHIFT [facility] Last Admin: 12/25/24 10:11 Dose: Not Given Documented By: JAM Non-Admin Reason: Previously Administered Labs 12/25/24 06:09 12/25/24 06:09 Labs: Laboratory Results - last 24 hr 12/24/24 12/24/24 12/24/24 11:39 11:58 12:37 MCV 59.2 L MCH 15.9 L MCHC 26.9 L RDW 20.1 H Plt Count 238 MPV 10.0 Immature Gran % (Auto) 0.4 Neut % (Auto) 60.7 Lymph % (Auto) 26.0 [place] % (Auto) 11.3 H Eos % (Auto) 1.0 Baso % (Auto) 0.6 Lymph # (Auto) 1.3 [place] # (Auto) 0.6 Eos # (Auto) 0.1 Baso # (Auto) 0.0 Abs Immat Gran (auto) 0.02 Absolute Neuts (auto) 3.0 Absolute Nucleated RBC 0.000 Nucleated RBC % (auto) 0.0 Hold Purple Top SEE NOTE PT INR Anion Gap 8 L Estim Creat Clear Calc 123.2 Estimated GFR > 60 Random Glucose 85 Calcium 8.8 Magnesium 2.0 Iron 9 L TIBC 387 % Saturation 2 L Unsat Iron Binding 378 Total Bilirubin 0.3 Direct Bilirubin 0.1 AST 33 ALT 8 Alkaline Phosphatase 30 L B-Natriuretic Peptide 52 Total Protein 6.8 Albumin 3.9 Hold Red Top See Note Urine Color Urine Appearance Urine pH Ur Specific [place] Urine Protein Urine Glucose (UA) Urine Ketones Urine Blood Urine Nitrite Ur Leukocyte Esterase Stool Occult Blood NEGATIVE Urine Opiates Screen Ur Buprenorphine Scrn Ur Oxycodone Screen Urine Methadone Screen Urine Fentanyl Screen Ur Barbiturates Screen Ur Phencyclidine Scrn Ur Amphetamines Screen U Benzodiazepines Scrn Urine Cocaine Screen U Marijuana (THC) Screen Blood Type A Positive Antibody Screen NEGATIVE Crossmatch See Detail 12/24/24 12/24/24 12/25/24 12:45 20:59 06:09 MCV 63.9 L 63.2 L MCH 18.4 L 18.3 L MCHC 28.8 L 28.9 L RDW 25.2 H 24.2 H Plt Count 232 226 MPV 10.2 Not Reportable Immature Gran % (Auto) Neut % (Auto) Lymph % (Auto) [place] % (Auto) Eos % (Auto) Baso % (Auto) Lymph # (Auto) [place] # (Auto) Eos # (Auto) Baso # (Auto) Abs Immat Gran (auto) Absolute Neuts (auto) Absolute Nucleated RBC 0.000 0.000 Nucleated RBC % (auto) 0.0 0.0 Hold Purple Top PT 10.9 INR 0.9 Anion Gap 10 L Estim Creat Clear Calc 124.7 Estimated GFR > 60 Random Glucose 90 Calcium 8.9 Magnesium Iron TIBC % Saturation Unsat Iron Binding Total Bilirubin Direct Bilirubin AST ALT Alkaline Phosphatase B-Natriuretic Peptide Total Protein Albumin Hold Red Top Urine Color Yellow Urine Appearance Clear Urine pH 7.5 Ur Specific [place] <= 1.005 Urine Protein Negative Urine Glucose (UA) Negative Urine Ketones Negative Urine Blood Negative Urine Nitrite Negative Ur Leukocyte Esterase Negative Stool Occult Blood Urine Opiates Screen Not Detected Ur Buprenorphine Scrn Not Detected Ur Oxycodone Screen Not Detected Urine Methadone Screen Not Detected Urine Fentanyl Screen Not Detected Ur Barbiturates Screen Not Detected Ur Phencyclidine Scrn Not Detected Ur Amphetamines Screen Not Detected U Benzodiazepines Scrn Not Detected Urine Cocaine Screen Not Detected U Marijuana (THC) Screen Not Detected Blood Type Antibody Screen Crossmatch Assessment and Plan (1) Rectal bleed: Status: Acute Plan 54M PMH internal hemorrhoids presented with shortness of breath and weakness found to have severe iron-deficiency anemia Acute on chronic blood loss anemia Transfuse 2 units PRBC and hemoglobin improved appropriately from 5.7 to 7.2 Continue to monitor Plan for EGD and colonoscopy on 12/27/2024 Continue PPI DVT prophylaxis-mechanical due to GI bleed Full Code reason for continued hospitalization: Due to severity of the anemia and acuity plan for inpatient endoscopy Quality Stroke Does the patient have a stroke diagnosis?: No VTE Prior VTE?: No VTE Risk Level:: Medical - moderate - high VTE Device Contraindication: N/A - Device Ordered VTE Drug Contraindication: Treatment Not Indicated
--- NOTE | 2024-12-25 20:18 | CONS_ITS ---
DATE OF SERVICE: 12/24/2024 REASON FOR CONSULTATION: GI bleeding and anemia. HISTORY OF PRESENT ILLNESS: This has been obtained from the patient and the medical record. Patient is a 54-year-old male, who describes a longstanding history of constipation for many years. He does describe a history of intermittent rectal bleeding at home. Based on that, he underwent a colonoscopy about 2 or 3 months ago at [facility] by his description. He does not recall the name of the doctor who did it, but does recall that there were 2 polyps removed, but no other significant findings. He was told of hemorrhoids. Since that procedure, he has continued to have intermittent bleeding, which seems to be increasing in frequency. His constipation remains at baseline. He has not noticed any melena, but does describe fresh blood or dark blood in the bowel movement. He denies any nausea, vomiting, heartburn, dysphagia, early satiety, anorexia, abdominal pain, jaundice, nor any unintentional weight loss. Prior to the admission, he developed progressive shortness of breath and some weakness. He was also having episodes of lightheadedness. He finally was seen and found to have significant anemia with a hemoglobin of 5.7 on admission. He had microcytic indices with MCV of 59 and was also iron deficient. He denies any known family history of colorectal cancer. He does not use any chronic aspirin or NSAIDs. MEDICATIONS AT HOME: Propecia for hair loss. His medications here in the hospital include acetaminophen, IV pantoprazole. PAST MEDICAL HISTORY: Hernia surgery. He denies a history of heart disease, diabetes, stroke, nor lung disease. SOCIAL HISTORY: He is single. He does not smoke nor use any significant amounts of alcohol. 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 REVIEW OF SYSTEMS: CONSTITUTIONAL: He generally has been feeling well, but has had progressive dyspnea on exertion and lightheadedness. SKIN: No rash. No pruritus. CARDIAC: No chest pain. PULMONARY: No coughing or hemoptysis. GI: As above. URINARY: No dysuria, no hematuria. PHYSICAL EXAMINATION: GENERAL: Patient is a pleasant, alert male. He appears comfortable. SKIN: Warm and dry. He has been afebrile. CHEST: Clear. CARDIAC: Normal S1, S2. ABDOMEN: Soft, nondistended, and nontender. EXTREMITIES: Without edema. LABORATORY DATA: As above. Normal electrolytes. BUN 18, creatinine 0.8, iron of 9, iron saturation 2%. Normal LFTs. A CT scan of the abdomen and pelvis was negative for any sign of GI bleeding nor other acute abnormality. IMPRESSION: Given the patient's presentation and description of a recent colonoscopy, his bleeding may be in relation to hemorrhoids with significant anemia on that basis based on his description of chronic blood loss. However, as I explained to him, it is unusual for patients to present with such severe anemia and low iron strictly from hemorrhoidal bleeding. Therefore, I advised him it would be important to exclude any type of GI neoplasm or other possibilities such as angiodysplasias, a missed lesion on the recent colonoscopy, gastritis, or ulcer disease. As such, I did recommend a repeat colonoscopy as well as an upper endoscopy while he is an inpatient given the severity of the anemia, his description of ongoing bleeding and the need to transfuse him and monitor his blood count for least 24 to 48 hours. Full consent has been obtained from him for both procedures, including risks of bleeding and perforation. If the upper endoscopy and colonoscopy are both not revealing, including duodenal biopsies, he may need further workup with a small bowel video capsule study and a surgical consult regarding his hemorrhoids. In the meantime, I will continue to follow the hemoglobin and transfuse him. I would start him on IV PPI. Full consent has been obtained from him for the upper endoscopy and colonoscopy, including risks of bleeding and perforation. The procedure will be done with monitored anesthesia care. This has all been discussed with the patient in detail and he is comfortable with this plan. Thank you for the consultation. MD GEORGINA Epperson/FERNIE / [phone] ANAMARIA
[2024-12-26] VITALS (9 sets, daily range): BP systolic 120–160; BP diastolic 64–93; PULSE 65–82; RESP 16–20; TEMP 36.3–37.1; O2SAT 96–100
[2024-12-26] MEDS: Pantoprazole Sodium 40 MG/10 ML VIAL IVPUSH ×2 (06:02→17:52)
[2024-12-26 07:08] LABS: Anion Gap 11 (12-20); Blood Urea Nitrogen 15 mg/dL (9-16); Calcium 9.1 mg/dL (8.4-10.2); Carbon Dioxide 25 mmol/L (22-29); Chloride 109 mmol/L (96-108); Creatinine Clr Calc Pharmacy 123.2; Estimated Glomerular Filt Rate > 60; Glucose Random 92 mg/dL (60-115); Potassium 3.9 mmol/L (3.3-5.1); Sodium 141 mmol/L (135-145)
[2024-12-26 07:12] LABS: Red Cell Distribution Width 24.8 % (11.0-16.0)
[2024-12-26 07:14] LABS: Hematocrit 26.6 % (42.0-52.0); Hemoglobin 7.6 g/dl (14.0-18.0); Mean Corpuscular HGB Conc 28.6 g/dl (31.0-36.0); Mean Corpuscular Hemoglobin 18.1 pg (27.0-33.0); Platelet Count 237 X10*3/uL (160-400); Red Blood Count 4.21 X10*6/uL (4.60-5.80); White Blood Count 5.4 X10*3/uL (4.8-10.8)
[2024-12-26 07:19] LABS: Mean Corpuscular Volume 63.2 fL (80.0-98.0)
[2024-12-26 07:21] LABS: PLT ABN DIST 1
--- NOTE | 2024-12-26 08:46 | HO.PM.IMPN ---
Subjective Subjective Date of Service: 12/26/24 Interval History: feels better after transfusion Physical Exam Vital Signs: Vital Signs: Last Vital Signs Temp 98.8 F 12/26/24 08:00 Pulse 66 12/26/24 08:00 Resp 18 12/26/24 08:00 BP 120/77 12/26/24 08:00 Pulse Ox 100 12/26/24 08:00 O2 Del Method Room Air 12/26/24 08:00 BMI result Body Mass Index 29.1 General: AO X 3, no acute distress Resp: CTA bilateral, no accessory muscles used CVS: S1,S2,RRR GI: soft, non tender, non distended Neuro: motor grossly intact, alert Psych: appropriate affect, appropriate insight Objective Data Active Medications Acetaminophen (Acetaminophen 325 Mg Tablet) 975 mg PO Q6H PRN PRN Reason: Pain, Mild 1-3,fever,headache Bisacodyl (Bisacodyl 5 Mg Tablet.Dr) 10 mg PO ONCE ONE Stop: 12/26/24 15:01 Bisacodyl (Bisacodyl 5 Mg Tablet.Dr) 10 mg PO ONCE ONE Stop: 12/26/24 20:01 Pantoprazole Sodium (Pantoprazole Sodium 40 Mg/10 Ml Vial) 40 mg IVPUSH Q12H [facility] Last Admin: 12/26/24 06:02 Dose: 40 mg Documented By: PENNY Polyethylene Glycol/Electrolytes (Peg 3350/Na Sulf,Bicarb,Cl/Kcl 4,000 Ml Soln.Recon) 4,000 ml PO ONCE ONE Stop: 12/26/24 15:31 Sodium Biphosphate/Sodium Phosphate (Sodium Phosphate,[place]-Dibasic 133 Ml Enema) 133 ml PA ONCE PRN PRN Reason: Poor Colonoscopy Prep Results Sodium Chloride (0.9 % Sodium Chloride Flush 3 Ml Syringe) 3 ml IVFLUSH QSHIFT [facility] Last Admin: 12/25/24 20:05 Dose: 3 ml Documented By: PENNY Labs 12/26/24 06:29 12/26/24 06:29 Labs: Laboratory Results - last 24 hr 12/26/24 06:29 MCV 63.2 L MCH 18.1 L MCHC 28.6 L RDW 24.8 H Plt Count 237 MPV Not Reportable Absolute Nucleated RBC 0.000 Nucleated RBC % (auto) 0.0 Anion Gap 11 L Estim Creat Clear Calc 123.2 Estimated GFR > 60 Random Glucose 92 Calcium 9.1 Assessment and Plan (1) Rectal bleed: Status: Acute Plan 54M PMH internal hemorrhoids presented with shortness of breath and weakness found to have severe iron-deficiency anemia Acute on chronic blood loss anemia Transfuse 2 units PRBC and hemoglobin improved appropriately from 5.7 to 7.2, now stable between 7 and 8 Continue to monitor Plan for EGD and colonoscopy on 12/27/2024 Continue PPI DVT prophylaxis-mechanical due to GI bleed Full Code reason for continued hospitalization: Due to severity of the anemia and acuity plan for inpatient endoscopy Quality Stroke Does the patient have a stroke diagnosis?: No VTE Prior VTE?: No VTE Risk Level:: Medical - moderate - high VTE Device Contraindication: N/A - Device Ordered VTE Drug Contraindication: Treatment Not Indicated
[2024-12-26] MEDS: 0.9 % Sodium Chloride Flush 3 ML SYRINGE IVFLUSH ×2 (09:28→20:25)
[2024-12-26] MEDS: Iron Sucrose Complex 200 MG, Iron Sucrose Complex 100 MG in 0.9 % Sodium Chloride 250 ML 176.67 MG IV (16:27)
[2024-12-26] MEDS: bisacodyL 5 MG TABLET.DR 10 MG PO ×2 (17:52→20:23)
[2024-12-26] MEDS: PEG 3350/Na Sulf,Bicarb,Cl/KCL 4,000 ML SOLN.RECON 4000 ML PO (17:53)
[2024-12-27] VITALS (7 sets, daily range): BP systolic 102–139; BP diastolic 48–90; PULSE 68–94; RESP 15–20; TEMP 36.3–37.2; O2SAT 96–99
[2024-12-27 06:35] LABS: MANUAL DIFF FLAG NO
[2024-12-27 06:49] LABS: Basophils Percent Auto 0.3 % (0-2); Eosinophils Absolute Auto 0.1 X10*3/uL (0.0-0.4); Eosinophils Percent Auto 1.8 % (0-4); Hematocrit 28.8 % (42.0-52.0); Hemoglobin 8.6 g/dl (14.0-18.0); Imm Gran Abs Auto 0.02 X10*3/uL (0.00-0.03); Imm Gran Pct Auto 0.3 % (0.0-0.4); Lymphocytes Absolute Auto 1.3 X10*3/uL (1.2-4.9); Lymphocytes Percent Auto 21.2 % (20-40); Mean Corpuscular HGB Conc 29.9 g/dl (31.0-36.0); Mean Corpuscular Hemoglobin 19.4 pg (27.0-33.0); Monocytes Absolute Auto 0.7 X10*3/uL (0.1-1.2); Monocytes Percent Auto 11.8 % (2-11); Neutrophils Absolute Auto 3.9 x10*3/uL (2.0-8.3); Neutrophils Percent Auto 64.6 % (45-73); Platelet Count 231 X10*3/uL (160-400); Red Blood Count 4.43 X10*6/uL (4.60-5.80); Red Cell Distribution Width 26.5 % (11.0-16.0)
[2024-12-27 06:59] LABS: Anion Gap 10 (12-20); Blood Urea Nitrogen 10 mg/dL (9-16); Calcium 8.9 mg/dL (8.4-10.2); Carbon Dioxide 25 mmol/L (22-29); Chloride 110 mmol/L (96-108); Creatinine Clr Calc Pharmacy 127.9; Estimated Glomerular Filt Rate > 60; Glucose Fasting 89 mg/dL (60-99); Glucose Random 88 mg/dL (60-115); Potassium 3.6 mmol/L (3.3-5.1); Sodium 141 mmol/L (135-145)
--- NOTE | 2024-12-27 10:40 | HO.PM.IMPN ---
Subjective Subjective Date of Service: 12/27/24 Interval History: prep went well Physical Exam Vital Signs: Vital Signs: Last Vital Signs Temp 98.8 F 12/27/24 07:19 Pulse 94 12/27/24 07:19 Resp 20 12/27/24 07:19 BP 139/90 H 12/27/24 07:19 Pulse Ox 96 12/27/24 07:19 O2 Del Method Room Air 12/27/24 07:19 BMI result Body Mass Index 29.1 General: AO X 3, no acute distress Resp: CTA bilateral, no accessory muscles used CVS: S1,S2,RRR GI: soft, non tender, non distended Neuro: motor grossly intact, alert Psych: appropriate affect, appropriate insight Objective Data Active Medications Acetaminophen (Acetaminophen 325 Mg Tablet) 975 mg PO Q6H PRN PRN Reason: Pain, Mild 1-3,fever,headache Pantoprazole Sodium (Pantoprazole Sodium 40 Mg/10 Ml Vial) 40 mg IVPUSH Q12H [facility] Last Admin: 12/27/24 05:35 Dose: Not Given Documented By: MARLENA Non-Admin Reason: NPO Sodium Biphosphate/Sodium Phosphate (Sodium Phosphate,[place]-Dibasic 133 Ml Enema) 133 ml SC ONCE PRN PRN Reason: Poor Colonoscopy Prep Results Sodium Chloride (0.9 % Sodium Chloride Flush 3 Ml Syringe) 3 ml IVFLUSH QSHIFT [facility] Last Admin: 12/27/24 09:06 Dose: Not Given Documented By: JAM Non-Admin Reason: Unable to Scan Barcode Labs 12/27/24 06:00 12/27/24 06:00 Labs: Laboratory Results - last 24 hr 12/24/24 12/27/24 12/27/24 11:39 06:00 06:00 MCV Cancelled 65.0 L MCH Cancelled MCHC RDW Plt Count MPV Immature Gran % (Auto) Neut % (Auto) Lymph % (Auto) [place] % (Auto) Eos % (Auto) Baso % (Auto) Lymph # (Auto) [place] # (Auto) Eos # (Auto) Baso # (Auto) Abs Immat Gran (auto) Absolute Neuts (auto) Absolute Nucleated RBC Nucleated RBC % (auto) Anion Gap Estim Creat Clear Calc Estimated GFR Random Glucose Fasting Glucose Calcium Blood Type A Positive Antibody Screen NEGATIVE Crossmatch See Detail 12/27/24 12/27/24 12/27/24 06:00 06:00 06:00 MCV MCH 19.4 L MCHC Cancelled 29.9 L RDW Cancelled 26.5 H Plt Count Cancelled MPV Immature Gran % (Auto) Neut % (Auto) Lymph % (Auto) [place] % (Auto) Eos % (Auto) Baso % (Auto) Lymph # (Auto) [place] # (Auto) Eos # (Auto) Baso # (Auto) Abs Immat Gran (auto) Absolute Neuts (auto) Absolute Nucleated RBC Nucleated RBC % (auto) Anion Gap Estim Creat Clear Calc Estimated GFR Random Glucose Fasting Glucose Calcium Blood Type Antibody Screen Crossmatch 12/27/24 12/27/24 12/27/24 06:00 06:00 06:00 MCV MCH MCHC RDW Plt Count 231 MPV Cancelled Not Reportable Immature Gran % (Auto) 0.3 Neut % (Auto) 64.6 Lymph % (Auto) 21.2 [place] % (Auto) 11.8 H Eos % (Auto) 1.8 Baso % (Auto) 0.3 Lymph # (Auto) 1.3 [place] # (Auto) 0.7 Eos # (Auto) 0.1 Baso # (Auto) 0.0 Abs Immat Gran (auto) 0.02 Absolute Neuts (auto) 3.9 Absolute Nucleated RBC Cancelled 0.000 Nucleated RBC % (auto) Cancelled Anion Gap Estim Creat Clear Calc Estimated GFR Random Glucose Fasting Glucose Calcium Blood Type Antibody Screen Crossmatch 12/27/24 06:00 MCV MCH MCHC RDW Plt Count MPV Immature Gran % (Auto) Neut % (Auto) Lymph % (Auto) [place] % (Auto) Eos % (Auto) Baso % (Auto) Lymph # (Auto) [place] # (Auto) Eos # (Auto) Baso # (Auto) Abs Immat Gran (auto) Absolute Neuts (auto) Absolute Nucleated RBC Nucleated RBC % (auto) 0.0 Anion Gap 10 L Estim Creat Clear Calc 127.9 Estimated GFR > 60 Random Glucose 88 Fasting Glucose 89 Calcium 8.9 Blood Type Antibody Screen Crossmatch Assessment and Plan (1) Rectal bleed: Status: Acute Plan 54M PMH internal hemorrhoids presented with shortness of breath and weakness found to have severe iron-deficiency anemia Acute on chronic blood loss anemia Transfused 3 units PRBC total and hemoglobin improved appropriately from 5.7 to 8.6 Continue to monitor Plan for EGD and colonoscopy on 12/27/2024 Continue PPI DVT prophylaxis-mechanical due to GI bleed Full Code reason for continued hospitalization: Due to severity of the anemia and acuity plan for inpatient endoscopy Quality Stroke Does the patient have a stroke diagnosis?: No VTE Prior VTE?: No VTE Risk Level:: Medical - moderate - high VTE Device Contraindication: N/A - Device Ordered VTE Drug Contraindication: Treatment Not Indicated
--- NOTE | 2024-12-27 10:43 | P.DS_ITS ---
DS: Providers Provider Date of Service: 12/27/24 Date of admission: 12/24/24 16:27 Date of discharge: 12/27/24 Primary care physician: None Physician Consults: 12/24/24 16:30 Consult to Gastroenterology Routine Consulting Provider: He Myers Reason for consultation: Symptomatic anemia, rectal bleeding Has provider been notified: No DS: Diagnosis Discharge Diagnosis (1) Rectal bleed: Status: Acute DS: Summary Hospital Course Hospital Course: from initial hpi: 54 years old man with past medical history significant for intermittent rectal bleeding over the last 5-6 years and internal hemorrhoids presents to the emergency department complaining of worsening shortness on breath over the last month upon exercising and dizziness will hold doing pushups + standing up. Any associated headache, loss of consciousness, chest pain, abdominal pain, nausea or vomiting. He denies fever or chills. He denied taking blood thinners or NSAIDs. He only takes Propecia for baldness. He had a colonoscopy about 2-3 months ago and was found to have polyps (benign). He never had upper endoscopy. He drinks alcohol occasionally, eats marijuana gummies and chews tobacco. In the ED, he was found to have stable vital signs. Blood workup was remarkable for hemoglobin of 5.7 and hematocrit of 21.2. Platelets are normal. There are no significant electrolyte imbalances except for some degree of hyperchloremia. BUN is 18 (elevated) and creatinine is normal. LFTs are unremarkable. BNP, total protein and albumin are normal. UA is normal. Urine toxicology is normal. Chest, abdominal pelvis CT showed nonspecific less than 3 mm noncalcified pulmonary nodules, apical posterior segment left lung and beneath the high melena or fissure, probable diverticulum in the duodenum, no intraluminal hemorrhage, 9 mm of 80 septal lesions, anterior midportion right kidney and 1.8 cm septated cyst in the right hepatic lobe. hospital course: Patient was admitted for acute on chronic blood loss anemia. Was transfused 3 units total. Hemoglobin improved from 5.7-8.6. Underwent EGD and colonoscopy which revealed: 1. Small to moderate-sized hiatal hernia with changes of reflux. Biopsies taken to R/O Emanuel's 2. Biopsies taken from duodenum to R/O celiac disease No sign of bleeding Colonoscopy to the cecum and TI 1. Internal and External hemorrhoids although not particulary impressive or inflamed 2. Diverticulosis No sign of bleeding Patient was started on oral PPI, iron twice daily and MiraLax we will follow up with Gastroenterology for video capsule and/or hemorrhoid surgery Time Attestation Discharge Coordination Time (in mins): 33 Quality: Safe Use of Opioids Does Pt have an Active Cancer Diagnosis on the Problem List?: No Quality: Stroke Does the patient have a stroke diagnosis?: No Physical Exam Vital Signs: Vital Signs: Last Vital Signs Temp 98.8 F 12/27/24 07:19 Pulse 94 12/27/24 07:19 Resp 20 12/27/24 07:19 BP 139/90 H 12/27/24 07:19 Pulse Ox 96 12/27/24 07:19 O2 Del Method Room Air 12/27/24 07:19 BMI result Body Mass Index 29.1 General: AO X 3, no acute distress Resp: CTA bilateral, no accessory muscles used CVS: S1,S2,RRR GI: soft, non tender, non distended Neuro: motor grossly intact, alert Psych: appropriate affect, appropriate insight DS: Data Data Completed and Pending Labs on day of discharge: Laboratory Results - last 24 hr 12/24/24 12/27/24 12/27/24 11:39 06:00 06:00 WBC Cancelled 6.0 RBC Cancelled Hgb Hct MCV MCH MCHC RDW Plt Count MPV Immature Gran % (Auto) Neut % (Auto) Lymph % (Auto) [place] % (Auto) Eos % (Auto) Baso % (Auto) Lymph # (Auto) [place] # (Auto) Eos # (Auto) Baso # (Auto) Abs Immat Gran (auto) Absolute Neuts (auto) Absolute Nucleated RBC Nucleated RBC % (auto) Sodium Potassium Chloride Carbon Dioxide Anion Gap BUN Creatinine Estim Creat Clear Calc Estimated GFR Random Glucose Fasting Glucose Calcium Blood Type A Positive Antibody Screen NEGATIVE Crossmatch See Detail 12/27/24 12/27/24 12/27/24 06:00 06:00 06:00 WBC RBC 4.43 L Hgb Cancelled 8.6 L Hct Cancelled 28.8 L MCV Cancelled MCH MCHC RDW Plt Count MPV Immature Gran % (Auto) Neut % (Auto) Lymph % (Auto) [place] % (Auto) Eos % (Auto) Baso % (Auto) Lymph # (Auto) [place] # (Auto) Eos # (Auto) Baso # (Auto) Abs Immat Gran (auto) Absolute Neuts (auto) Absolute Nucleated RBC Nucleated RBC % (auto) Sodium Potassium Chloride Carbon Dioxide Anion Gap BUN Creatinine Estim Creat Clear Calc Estimated GFR Random Glucose Fasting Glucose Calcium Blood Type Antibody Screen Crossmatch 12/27/24 12/27/24 12/27/24 06:00 06:00 06:00 WBC RBC Hgb Hct MCV 65.0 L MCH Cancelled 19.4 L MCHC Cancelled 29.9 L RDW Cancelled Plt Count MPV Immature Gran % (Auto) Neut % (Auto) Lymph % (Auto) [place] % (Auto) Eos % (Auto) Baso % (Auto) Lymph # (Auto) [place] # (Auto) Eos # (Auto) Baso # (Auto) Abs Immat Gran (auto) Absolute Neuts (auto) Absolute Nucleated RBC Nucleated RBC % (auto) Sodium Potassium Chloride Carbon Dioxide Anion Gap BUN Creatinine Estim Creat Clear Calc Estimated GFR Random Glucose Fasting Glucose Calcium Blood Type Antibody Screen Crossmatch 12/27/24 12/27/24 12/27/24 06:00 06:00 06:00 WBC RBC Hgb Hct MCV MCH MCHC RDW 26.5 H Plt Count Cancelled 231 MPV Cancelled Not Reportable Immature Gran % (Auto) 0.3 Neut % (Auto) 64.6 Lymph % (Auto) 21.2 [place] % (Auto) 11.8 H Eos % (Auto) 1.8 Baso % (Auto) 0.3 Lymph # (Auto) 1.3 [place] # (Auto) 0.7 Eos # (Auto) 0.1 Baso # (Auto) 0.0 Abs Immat Gran (auto) 0.02 Absolute Neuts (auto) 3.9 Absolute Nucleated RBC Cancelled Nucleated RBC % (auto) Sodium Potassium Chloride Carbon Dioxide Anion Gap BUN Creatinine Estim Creat Clear Calc Estimated GFR Random Glucose Fasting Glucose Calcium Blood Type Antibody Screen Crossmatch 12/27/24 12/27/24 06:00 06:00 WBC RBC Hgb Hct MCV MCH MCHC RDW Plt Count MPV Immature Gran % (Auto) Neut % (Auto) Lymph % (Auto) [place] % (Auto) Eos % (Auto) Baso % (Auto) Lymph # (Auto) [place] # (Auto) Eos # (Auto) Baso # (Auto) Abs Immat Gran (auto) Absolute Neuts (auto) Absolute Nucleated RBC 0.000 Nucleated RBC % (auto) Cancelled 0.0 Sodium 141 Potassium 3.6 Chloride 110 H Carbon Dioxide 25 Anion Gap 10 L BUN 10 Creatinine 0.78 Estim Creat Clear Calc 127.9 Estimated GFR > 60 Random Glucose 88 Fasting Glucose 89 Calcium 8.9 Blood Type Antibody Screen Crossmatch Discharge Plan Discharge Anticipated Discharge Date/Time: 12/27/24 10:42 Patient Disposition: Home, Self-Care Discharge Diagnosis: Anemia Referrals: Physician,Luis [Primary Care Provider] - 1 Week He Myers MD [Physician] - 1 Week Discharge Medications: New ferrous sulfate 324 mg (65 mg iron) Tablet,Delayed Release (Dr/Ec) 324 mg PO BIDWM Qty: 180 0RF omeprazole 20 mg Capsule,Delayed Release(Dr/Ec) 20 mg PO DAILY@0630 Qty: 90 0RF polyethylene glycol 3350 [Miralax] 17 gram/dose powder 17 g PO DAILY Qty: 850 0RF Continued finasteride [Propecia] 1 mg Tablet 1 mg PO DAILY Discharge Orders: Discharge Order (Routine); Ordered 12/27/24 Ordered By: Marty Squires Diet: Advance to usual diet Activity on Discharge: As tolerated Stand Alone Forms: Patient Portal Discharge page Print Language: Ukrainian Care Plan Goals: recovery Health Concerns: Anemia Plan of Treatment: Follow up with Gastroenterology, started omperazole, iron, miralax Assessment: See above
--- NOTE | 2024-12-27 13:40 | HO.ANESPROP2 ---
[facility] Active Problems Active Problems: All Active Problems Symptomatic anemia (Acute) Constipation (Acute) External hemorrhoids (Acute) Rectal bleed (Acute) Irregular bowel habits (Acute) Otitis externa (Acute) Past Medical History Functional capacity: independent ambulation Family History Family history of problems with anesthesia: No Surgical History History of Problems with Anesthesia: No Social History Social History Household Members: None Housing: House Do you presently have visiting nurse or other home services: No Alcohol intake: current Alcohol intake frequency: a few times a month Patient Tobacco Use Status: Current everyday Tobacco user Tobacco use type: Smokeless Tobacco e-Cigarette/Vaping Use: Never Used Second Hand Smoke Exposure: No Substance Use Type: Marijuana Advance Directives Date on File: 12/27/24 service: Yes Meds Allergies Allergy/AdvReac Type Severity Reaction Status Date / Time No Known Allergies Allergy Verified 12/24/24 11:23 Active Medications: Current Medications Acetaminophen (Acetaminophen 325 Mg Tablet) 975 mg PO Q6H PRN PRN Reason: Pain, Mild 1-3,fever,headache Pantoprazole Sodium (Pantoprazole Sodium 40 Mg/10 Ml Vial) 40 mg IVPUSH Q12H [facility] Last Admin: 12/27/24 05:35 Dose: Not Given Sodium Biphosphate/Sodium Phosphate (Sodium Phosphate,Mcclain-Dibasic 133 Ml Enema) 133 ml ND ONCE PRN PRN Reason: Poor Colonoscopy Prep Results Sodium Chloride (0.9 % Sodium Chloride Flush 3 Ml Syringe) 3 ml IVFLUSH QSHIFT [facility] Last Admin: 12/27/24 09:06 Dose: Not Given Home Medications ?Medication ?Instructions ?Recorded ?Confirmed ?Last Taken ?Type finasteride 1 mg tablet (Propecia) 1 mg PO DAILY 12/24/24 12/24/24 Unknown History Exam Height,Weight and Vital Signs: Height 6 ft Weight 97.5 kg Last Vital Signs Temp 99.0 F 12/27/24 13:20 Pulse 68 12/27/24 13:20 Resp 15 12/27/24 13:20 BP 133/83 12/27/24 13:20 Pulse Ox 98 12/27/24 13:20 O2 Del Method Room Air 12/27/24 13:20 Pertinent Lab Results Pertinent Lab Results: Laboratory Tests 12/24/24 12/24/2425 11:39 11:58 12:37 WBC 5.0 RBC 3.58 L Hgb 5.7 L* Hct 21.2 L MCV 59.2 L MCH 15.9 L MCHC 26.9 L RDW 20.1 H Plt Count 238 MPV 10.0 Immature Gran % (Auto) 0.4 Neut % (Auto) 60.7 Lymph % (Auto) 26.0 Mcclain % (Auto) 11.3 H Eos % (Auto) 1.0 Baso % (Auto) 0.6 Lymph # (Auto) 1.3 Mcclain # (Auto) 0.6 Eos # (Auto) 0.1 Baso # (Auto) 0.0 Abs Immat Gran (auto) 0.02 Absolute Neuts (auto) 3.0 Absolute Nucleated RBC 0.000 Nucleated RBC % (auto) 0.0 Hold Purple Top SEE NOTE PT INR Sodium 139 Potassium 4.0 Chloride 110 H Carbon Dioxide 25 Anion Gap 8 L BUN 18 H Creatinine 0.81 Estim Creat Clear Calc 123.2 Estimated GFR > 60 Random Glucose 85 Fasting Glucose Calcium 8.8 Magnesium 2.0 Iron 9 L TIBC 387 % Saturation 2 L Unsat Iron Binding 378 Total Bilirubin 0.3 Direct Bilirubin 0.1 AST 33 ALT 8 Alkaline Phosphatase 30 L B-Natriuretic Peptide 52 Total Protein 6.8 Albumin 3.9 Hold Red Top See Note Urine Color Urine Appearance Urine pH Ur Specific [place] Urine Protein Urine Glucose (UA) Urine Ketones Urine Blood Urine Nitrite Ur Leukocyte Esterase Stool Occult Blood NEGATIVE Urine Opiates Screen Ur Buprenorphine Scrn Ur Oxycodone Screen Urine Methadone Screen Urine Fentanyl Screen Ur Barbiturates Screen Ur Phencyclidine Scrn Ur Amphetamines Screen U Benzodiazepines Scrn Urine Cocaine Screen U Marijuana (THC) Screen Blood Type A Positive Antibody Screen NEGATIVE Crossmatch See Detail 12/24/24 12/24/24 12/25/24 12:45 20:59 06:09 WBC 5.7 5.7 RBC 3.91 L 3.94 L Hgb 7.2 L D 7.2 L Hct 25.0 L 24.9 L MCV 63.9 L 63.2 L MCH 18.4 L 18.3 L MCHC 28.8 L 28.9 L RDW 25.2 H 24.2 H Plt Count 232 226 MPV 10.2 Not Reportable Immature Gran % (Auto) Neut % (Auto) Lymph % (Auto) Mcclain % (Auto) Eos % (Auto) Baso % (Auto) Lymph # (Auto) Mcclain # (Auto) Eos # (Auto) Baso # (Auto) Abs Immat Gran (auto) Absolute Neuts (auto) Absolute Nucleated RBC 0.000 0.000 Nucleated RBC % (auto) 0.0 0.0 Hold Purple Top PT 10.9 INR 0.9 Sodium 141 Potassium 3.9 Chloride 111 H Carbon Dioxide 24 Anion Gap 10 L BUN 13 Creatinine 0.80 Estim Creat Clear Calc 124.7 Estimated GFR > 60 Random Glucose 90 Fasting Glucose Calcium 8.9 Magnesium Iron TIBC % Saturation Unsat Iron Binding Total Bilirubin Direct Bilirubin AST ALT Alkaline Phosphatase B-Natriuretic Peptide Total Protein Albumin Hold Red Top Urine Color Yellow Urine Appearance Clear Urine pH 7.5 Ur Specific [place] <= 1.005 Urine Protein Negative Urine Glucose (UA) Negative Urine Ketones Negative Urine Blood Negative Urine Nitrite Negative Ur Leukocyte Esterase Negative Stool Occult Blood Urine Opiates Screen Not Detected Ur Buprenorphine Scrn Not Detected Ur Oxycodone Screen Not Detected Urine Methadone Screen Not Detected Urine Fentanyl Screen Not Detected Ur Barbiturates Screen Not Detected Ur Phencyclidine Scrn Not Detected Ur Amphetamines Screen Not Detected U Benzodiazepines Scrn Not Detected Urine Cocaine Screen Not Detected U Marijuana (THC) Screen Not Detected Blood Type Antibody Screen Crossmatch 12/26/24 12/27/24 12/27/24 06:29 06:00 06:00 WBC 5.4 Cancelled 6.0 RBC 4.21 L Cancelled Hgb 7.6 L Hct 26.6 L MCV 63.2 L MCH 18.1 L MCHC 28.6 L RDW 24.8 H Plt Count 237 MPV Not Reportable Immature Gran % (Auto) Neut % (Auto) Lymph % (Auto) Mcclain % (Auto) Eos % (Auto) Baso % (Auto) Lymph # (Auto) Mcclain # (Auto) Eos # (Auto) Baso # (Auto) Abs Immat Gran (auto) Absolute Neuts (auto) Absolute Nucleated RBC 0.000 Nucleated RBC % (auto) 0.0 Hold Purple Top PT INR Sodium 141 Potassium 3.9 Chloride 109 H Carbon Dioxide 25 Anion Gap 11 L BUN 15 Creatinine 0.81 Estim Creat Clear Calc 123.2 Estimated GFR > 60 Random Glucose 92 Fasting Glucose Calcium 9.1 Magnesium Iron TIBC % Saturation Unsat Iron Binding Total Bilirubin Direct Bilirubin AST ALT Alkaline Phosphatase B-Natriuretic Peptide Total Protein Albumin Hold Red Top Urine Color Urine Appearance Urine pH Ur Specific [place] Urine Protein Urine Glucose (UA) Urine Ketones Urine Blood Urine Nitrite Ur Leukocyte Esterase Stool Occult Blood Urine Opiates Screen Ur Buprenorphine Scrn Ur Oxycodone Screen Urine Methadone Screen Urine Fentanyl Screen Ur Barbiturates Screen Ur Phencyclidine Scrn Ur Amphetamines Screen U Benzodiazepines Scrn Urine Cocaine Screen U Marijuana (THC) Screen Blood Type Antibody Screen Crossmatch 12/27/24 12/27/24 12/27/24 06:00 06:00 06:00 WBC RBC 4.43 L Hgb Cancelled 8.6 L Hct Cancelled 28.8 L MCV Cancelled MCH MCHC RDW Plt Count MPV Immature Gran % (Auto) Neut % (Auto) Lymph % (Auto) Mcclain % (Auto) Eos % (Auto) Baso % (Auto) Lymph # (Auto) Mcclain # (Auto) Eos # (Auto) Baso # (Auto) Abs Immat Gran (auto) Absolute Neuts (auto) Absolute Nucleated RBC Nucleated RBC % (auto) Hold Purple Top PT INR Sodium Potassium Chloride Carbon Dioxide Anion Gap BUN Creatinine Estim Creat Clear Calc Estimated GFR Random Glucose Fasting Glucose Calcium Magnesium Iron TIBC % Saturation Unsat Iron Binding Total Bilirubin Direct Bilirubin AST ALT Alkaline Phosphatase B-Natriuretic Peptide Total Protein Albumin Hold Red Top Urine Color Urine Appearance Urine pH Ur Specific [place] Urine Protein Urine Glucose (UA) Urine Ketones Urine Blood Urine Nitrite Ur Leukocyte Esterase Stool Occult Blood Urine Opiates Screen Ur Buprenorphine Scrn Ur Oxycodone Screen Urine Methadone Screen Urine Fentanyl Screen Ur Barbiturates Screen Ur Phencyclidine Scrn Ur Amphetamines Screen U Benzodiazepines Scrn Urine Cocaine Screen U Marijuana (THC) Screen Blood Type Antibody Screen Crossmatch 12/27/24 12/27/24 12/27/24 06:00 06:00 06:00 WBC RBC Hgb Hct MCV 65.0 L MCH Cancelled 19.4 L MCHC Cancelled 29.9 L RDW Cancelled Plt Count MPV Immature Gran % (Auto) Neut % (Auto) Lymph % (Auto) Mcclain % (Auto) Eos % (Auto) Baso % (Auto) Lymph # (Auto) Mcclain # (Auto) Eos # (Auto) Baso # (Auto) Abs Immat Gran (auto) Absolute Neuts (auto) Absolute Nucleated RBC Nucleated RBC % (auto) Hold Purple Top PT INR Sodium Potassium Chloride Carbon Dioxide Anion Gap BUN Creatinine Estim Creat Clear Calc Estimated GFR Random Glucose Fasting Glucose Calcium Magnesium Iron TIBC % Saturation Unsat Iron Binding Total Bilirubin Direct Bilirubin AST ALT Alkaline Phosphatase B-Natriuretic Peptide Total Protein Albumin Hold Red Top Urine Color Urine Appearance Urine pH Ur Specific [place] Urine Protein Urine Glucose (UA) Urine Ketones Urine Blood Urine Nitrite Ur Leukocyte Esterase Stool Occult Blood Urine Opiates Screen Ur Buprenorphine Scrn Ur Oxycodone Screen Urine Methadone Screen Urine Fentanyl Screen Ur Barbiturates Screen Ur Phencyclidine Scrn Ur Amphetamines Screen U Benzodiazepines Scrn Urine Cocaine Screen U Marijuana (THC) Screen Blood Type Antibody Screen Crossmatch 12/27/24 12/27/24 12/27/24 06:00 06:00 06:00 WBC RBC Hgb Hct MCV MCH MCHC RDW 26.5 H Plt Count Cancelled 231 MPV Cancelled Not Reportable Immature Gran % (Auto) 0.3 Neut % (Auto) 64.6 Lymph % (Auto) 21.2 Mcclain % (Auto) 11.8 H Eos % (Auto) 1.8 Baso % (Auto) 0.3 Lymph # (Auto) 1.3 Mcclain # (Auto) 0.7 Eos # (Auto) 0.1 Baso # (Auto) 0.0 Abs Immat Gran (auto) 0.02 Absolute Neuts (auto) 3.9 Absolute Nucleated RBC Cancelled Nucleated RBC % (auto) Hold Purple Top PT INR Sodium Potassium Chloride Carbon Dioxide Anion Gap BUN Creatinine Estim Creat Clear Calc Estimated GFR Random Glucose Fasting Glucose Calcium Magnesium Iron TIBC % Saturation Unsat Iron Binding Total Bilirubin Direct Bilirubin AST ALT Alkaline Phosphatase B-Natriuretic Peptide Total Protein Albumin Hold Red Top Urine Color Urine Appearance Urine pH Ur Specific [place] Urine Protein Urine Glucose (UA) Urine Ketones Urine Blood Urine Nitrite Ur Leukocyte Esterase Stool Occult Blood Urine Opiates Screen Ur Buprenorphine Scrn Ur Oxycodone Screen Urine Methadone Screen Urine Fentanyl Screen Ur Barbiturates Screen Ur Phencyclidine Scrn Ur Amphetamines Screen U Benzodiazepines Scrn Urine Cocaine Screen U Marijuana (THC) Screen Blood Type Antibody Screen Crossmatch 12/27/24 12/27/24 06:00 06:00 WBC RBC Hgb Hct MCV MCH MCHC RDW Plt Count MPV Immature Gran % (Auto) Neut % (Auto) Lymph % (Auto) Mcclain % (Auto) Eos % (Auto) Baso % (Auto) Lymph # (Auto) Mcclain # (Auto) Eos # (Auto) Baso # (Auto) Abs Immat Gran (auto) Absolute Neuts (auto) Absolute Nucleated RBC 0.000 Nucleated RBC % (auto) Cancelled 0.0 Hold Purple Top PT INR Sodium 141 Potassium 3.6 Chloride 110 H Carbon Dioxide 25 Anion Gap 10 L BUN 10 Creatinine 0.78 Estim Creat Clear Calc 127.9 Estimated GFR > 60 Random Glucose 88 Fasting Glucose 89 Calcium 8.9 Magnesium Iron TIBC % Saturation Unsat Iron Binding Total Bilirubin Direct Bilirubin AST ALT Alkaline Phosphatase B-Natriuretic Peptide Total Protein Albumin Hold Red Top Urine Color Urine Appearance Urine pH Ur Specific [place] Urine Protein Urine Glucose (UA) Urine Ketones Urine Blood Urine Nitrite Ur Leukocyte Esterase Stool Occult Blood Urine Opiates Screen Ur Buprenorphine Scrn Ur Oxycodone Screen Urine Methadone Screen Urine Fentanyl Screen Ur Barbiturates Screen Ur Phencyclidine Scrn Ur Amphetamines Screen U Benzodiazepines Scrn Urine Cocaine Screen U Marijuana (THC) Screen Blood Type Antibody Screen Crossmatch Airway Heart: RRR Lungs: CTA Assessment and Plan Assessment Anesthesia Assessment: Anesthesia Plan Discussed and Chart Reviewed Final Anesthetic Review Family History of Problems with Anesthesia: No History of Problems with Anesthesia: No NPO: Yes ASA Class: III and Emergency Final Preanesthetic Review: Meds/Allgs Chart Reviewed, Consent Obtained/Reviewed and Anes Risks/Benef Reviewed Patient Risk: Intermediate Procedure Risk: Low Anesthetic Plan Anesthetic Plan: MAC: and Spinal Disposition: Standard PACU
--- NOTE | 2024-12-27 15:34 | P.BOP_ITS ---
Brief Operative Note Date of Service: 12/27/24 Pre-op diagnosis: Anemia Post-op diagnosis: other (Hiatal hernia, GERD, R/O celiac disease, Int/Ext Hemorrhoids) Procedure: EGD with biopsies, Colonoscopy to the cecum and TI Surgeon: He Myers MD Anesthesia: MAC Was an Associate Professor Of Art History used for this Procedure?: No Estimated blood loss (mL): 2.0 Pathology: other (A. Descending duodenum B. Esophagus 39-40cm) Condition: stable Disposition: PACU
--- NOTE | 2024-12-27 15:37 | PM.EVENT ---
Event Note Date of Service: 12/27/24 Event Note: GI-Full note dictated EGD 1. Small to moderate-sized hiatal hernia with changes of reflux. Biopsies taken to R/O Emanuel's 2. Biopsies taken from duodenum to R/O celiac disease No sign of bleeding Colonoscopy to the cecum and TI 1. Internal and External hemorrhoids although not particulary impressive or inflamed 2. Diverticulosis No sign of bleeding Rec: Advance diet. Send home on daily oral PPI and Iron twice a day. Will need F/U to decide about need for a video capsule study and/or hemorrhoid surgery. He needs to stay on daily Miralax and a fiber supplement to help with constipation. Time Spent With Patient Time: Total time managing care of this patient today ____ minutes.
--- NOTE | 2024-12-27 15:57 | MHC.CM.PN ---
Addendum entered by Radha Harris RN 12/27/24 16:29: Patient now medically cleared for dc home self care. Per RN, private transport. Original Note: PATIENT NOT MEDICALLY CLEARED FOR DC. CM WILL CONTINUE TO FOLLOW.
--- NOTE | 2024-12-28 03:50 | OP_ITS ---
DATE OF SERVICE: 12/27/2024 SURGEON: He Myers MD INDICATIONS: The patient presents for evaluation of iron-deficiency anemia with GI bleeding. Full consent has been obtained from him for this, including risks of bleeding and perforation. PREOPERATIVE DIAGNOSIS: POSTOPERATIVE DIAGNOSIS: PROCEDURE PERFORMED: Esophagogastroduodenoscopy with biopsies, and colonoscopy to the cecum and terminal ileum. ESTIMATED BLOOD LOSS: COMPLICATIONS: ANESTHESIA: Monitored anesthesia care. ASSISTANTS: SPECIMENS: PREOPERATIVE DIAGNOSES: Gastrointestinal bleeding and iron deficiency anemia. POSTOPERATIVE DIAGNOSES: Gastrointestinal bleeding and iron deficiency anemia, hiatal hernia with associated gastroesophageal reflux, rule out Emanuel's esophagus, rule out celiac disease, internal and external hemorrhoids, diverticulosis. DESCRIPTION OF PROCEDURE: The patient was placed in left lateral decubitus position. The Olympus video gastroscope was passed in the posterior oropharynx and upper esophagus under direct vision. The scope was passed slowly to the distal esophagus. The gastroesophageal junction appeared at 40 cm. Extending from this to just 39 cm were areas of irregularity, erythema, edema, and possibly small areas of Emanuel's esophagus. There was no gross evidence of any esophagitis, ulceration, nor any lesions. The scope entered into the stomach. There was a small to moderate-sized hiatal hernia noted. The scope was advanced to the pylorus and the duodenum was cannulated to the descending portion. The duodenum including the bulb appeared normal without mass or ulceration. Biopsies were obtained of the 2nd and 3rd portions of duodenum. The scope was withdrawn back to the stomach. The gastric antrum and body appeared normal with good peristalsis. The scope was retroflexed visualizing the proximal stomach carefully, which appeared normal, without any sign of mass or ulceration. The scope was straightened and withdrawn back to the esophagus. Biopsies were taken at the gastroesophageal junction between 39 and 40 cm. The scope was withdrawn through the remainder of the esophagus, which appeared normal. The scope was withdrawn from the patient. He was turned around for the colonoscopy. The digital rectal exam revealed small external hemorrhoids. There was no sign of any thrombosis nor bleeding. The Olympus video pediatric colonoscope was entered into the rectum and advanced easily to the cecum. Once in the cecum, I did identify normal-appearing cecal pouch with appendiceal orifice and a normal-appearing ileocecal valve. The terminal ileum was cannulated and appeared normal. The scope was withdrawn back in the colon. The entire cecum and ileocecal valve appeared normal. The scope was slowly withdrawn assessing all mucosal surfaces carefully. Preparation was excellent. I did not visualize any sign of polyps, colitis, nor angiodysplasia. There was no sign of any active bleeding nor old blood in the colon. There was a moderate amount of sigmoid diverticulosis. In the rectum, scope was retroflexed visualizing some internal hemorrhoids, but no other pathology. The rectal mucosa appeared normal. The scope was straightened and withdrawn from the patient. He tolerated the procedures well and was returned to the recovery area in stable condition. IMPRESSION: 1. Hiatal hernia, gastroesophageal reflux, rule out Emanuel's esophagus. 2. Rule out celiac disease. 3. Diverticulosis. 4. Internal and external hemorrhoids. PLAN: The results of biopsies will be checked. At this point, he has been stable and will be able to leave later tonight as long as he tolerates his dinner. I did review with him, as well as leaving him a voicemail with all the instructions, to use iron supplements twice a day. I would also recommend that he stay on omeprazole daily given the endoscopic findings of some reflux and hiatal hernia. He reports that he is not actually having any symptoms of heartburn, but nonetheless, given the findings and his presentation with significant anemia, I would recommend he stay on the omeprazole. He will need outpatient followup with myself and his primary care physician. We shall follow the course of his anemia and if it completely resolves and he is doing well, we could hold off on further evaluation. If he continues to remain anemic, he may need further evaluation with a small bowel video capsule study. He does have the issues with his hemorrhoids and constipation with associated straining. I did advise him he needs daily MiraLAX and a fiber supplement such as Metamucil. We did review that hemorrhoids can occasionally cause anemia, but that is rather unusual. We did review that if the hemorrhoids continue to prove problematic despite avoiding straining and constipation, then he may need surgical evaluation with Dr. Robin. MD GEORGINA Epperson/FERNIE / [phone] ANAMARIA
== END 2024-12-27 17:17 | disposition home or self-care (01) | DRG 244 ==
LOC: HO.ED 13:38 → HO.EDOVER 16:44 → HO.IMC 19:53
PROVIDERS: Internal Medicine; Nurse Practitioner Family; Admitting Provider Internal Medicine; Emergency Provider Emergency Medicine; Visit Provider Internal Medicine
PROC: 0DB98ZX Excision of Duodenum, Via Natural or Artificial Opening Endoscopic, Diagnostic (ICD-10-PCS; principal; 2024-12-27 13:50)
DX: K57.31 Diverticulosis of large intestine without perforation or abscess with bleeding (principal); D62 Acute posthemorrhagic anemia; F17.210 Nicotine dependence, cigarettes, uncomplicated; Z71.6 Tobacco abuse counseling; K21.9 Gastro-esophageal reflux disease without esophagitis; K22.70 Barrett's esophagus without dysplasia; K64.8 Other hemorrhoids; K64.4 Residual hemorrhoidal skin tags; K44.9 Diaphragmatic hernia without obstruction or gangrene; Z79.899 Other long term (current) drug therapy
CPT/HCPCS: 36415; 71260; 74178; 80048; 80053; 80307; 81003; 82248; 82272; 83540; 83735; 83880; 85025; 85027; 85610; 86850; 86900; 86901; 86923; 88305; 88313; 88342; 93005; 99285; J1756; J2003; J2470; J2704; P9016; Q9967

== ENCOUNTER → 2024-12-24 11:58 | Outpatient (BNV) | payer OTHER, SELFPAY | PROVIDERS: Emergency Provider Emergency Medicine; Visit Provider Radiology Diagnostic Radiology | DX: R06.02 Shortness of breath (principal); R05.9 Cough, unspecified | CPT/HCPCS: 71260; 74178 ==

== ENCOUNTER 2024-12-24 16:27 | Outpatient (BNV) | payer OTHER, SELFPAY | END 2024-12-24 17:42 | PROVIDERS: Admitting Provider Internal Medicine; Emergency Provider Emergency Medicine; Visit Provider Internal Medicine Cardiovascular Disease | DX: R06.02 Shortness of breath (principal) | CPT/HCPCS: 93010 ==

== ENCOUNTER → 2024-12-24 16:27 | Outpatient (BNV) | payer OTHER, SELFPAY | PROVIDERS: Admitting Provider Internal Medicine; Emergency Provider Emergency Medicine; Visit Provider Internal Medicine | DX: K62.5 Hemorrhage of anus and rectum (principal); D64.9 Anemia, unspecified | CPT/HCPCS: 99223; 99232 ==

== ENCOUNTER 2025-01-19 08:44 | Outpatient (AMB) | payer OTHER, SELFPAY ==
--- NOTE | 2025-01-19 08:46 | A.OFFVIS_ITS ---
Vital Signs 01/19/25 08:56 Height 6 ft Weight 211 lb 3.245 oz BMI 28.6 BP 140/90 H Blood Pressure Location Lt brachial Position Sitting Intake Visit Reasons: Hemorrhoids Intake Note: Patient is seen in office for evaluation of hemorrhoids. 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 He says that he has had hemorrhoid problems for about 6 years now. He says he has always been chronically constipated. He says that he normally he was in the toilet for about an hour before having bowel movements and has to do about 3-4 bowel movements after that in the morning before going to work. He says that he does this every morning and he says he has to wake up about 330 in the morning to be able to go to work at 830 because of the amount of time he spends in the toilet He says that he has had bleeding for many years because of the bowel movements. He says he had to undergo transfusion last month in the hospital for weakness with a hemoglobin of 5.7. He had a colonoscopy last 12/28/2024 showing polyps which were benign. He says he does not see any primary care physician. [facility] Medical History (Updated 01/19/25 @ 09:23 by Darryn Robin MD) Bleeding hemorrhoids Surgical History Hx of colonoscopy (12/28/24) Hx of esophagogastroduodenoscopy (12/28/24) Social History Household Members: None Housing: House Do you presently have visiting nurse or other home services: No Alcohol intake: current Alcohol intake frequency: a few times a month Patient Tobacco Use Status: Current everyday Tobacco user Tobacco use type: Smokeless Tobacco e-Cigarette/Vaping Use: Never Used Second Hand Smoke Exposure: No Substance Use Type: Marijuana Advance Directives Date on File: 12/27/24 service: Yes Review of Systems Const Denies chills and Denies fever(s) Card Denies chest pain, Denies dyspnea and Denies dyspnea on exertion Resp Denies cough, Denies dyspnea and Denies dyspnea on exertion GI Denies hematochezia and Denies change in bowel habits Denies hematuria and Denies difficulty urinating Musc Denies back pain and Denies limited range of motion Neuro Denies focal weakness and Denies convulsions Psych Denies depression and Denies mood swings Physical Exam Vital Signs: Last Vital Signs BP 140/90 H 01/19/25 08:56 BMI result Body Mass Index 28.6 Const General: comfortable and no acute distress Orientation/consciousness: patient oriented x3 Neck Neck: Yes no lymphadenopathy Resp Auscultation: clear to auscultation bilaterally Cardio Rhythm: regular rhythm GI Other: Rectal exam shows external hemorrhoids both the left and right side. There was note of some prolapse of the internal component. There was no active bleeding. He was unable to tolerate anoscopy. Palpation (GI): Soft to palpation, nontender and no guarding Neuro General: patient oriented x3 Assessment & Plan Assessment & Plan (1) Bleeding hemorrhoids: Code(s): K64.9 - Unspecified hemorrhoids Category: Medical Plan: He has had bleeding from his hemorrhoids for many years and he actually had to be transfused last month has a hemoglobin of 5.7. He is colonoscopy does not reveal any other bleeding source He has a problem with chronic constipation and sits on the toilet for prolonged periods of time every morning. I told him that this has contributory to his hemorrhoidal bleeding. I explained to him the technique of hemorrhoidectomy. I reviewed the risks including but not limited to bleeding, infections, postop pain, as well as the benefits and alternatives. I reviewed with him what to expect postoperatively. He does stand that his hemorrhoid issues are likely to recur if his constipation it was not controlled He says that he would like to see if he will benefit from stool softeners prior to hemorrhoid surgery. I therefore we will prescribe him Metamucil as well as Colace. I explained to him the importance of taking these regularly consistently. I will see him again in the office in about 2 months and we will re-evaluate for hemorrhoidectomy. He is comfortable with the plan. Coding Level of Care Code New Pt Level 3 (06630) Diagnoses Bleeding hemorrhoids K64.9
[2025-01-19 08:56] VITALS: BP 140/90; BMI 28.6
--- OUTSIDE RECORDS SUMMARY | 2025-01-19 09:13 | XMS_ITS | Clinical Summary ---
Author Organization [facility] Address [address] [place] [address] Care Team Providers Care Athletic Events Scorer Name Role Phone Unavailable Primary Care Provider Unavailabl e Social History Tobacco Use Types Packs/Day Years Used Date Smoking Tobacco: Never Assessed Sex and Gender Information Value Date Recorded Sex Assigned at Not on file Legal Sex Male 8:49 AM EDT Gender Identity Not on file Sexual Orientation Not on file Plan of Treatment Health Maintenance Due Date Last Done Comments DTaP,Tdap,and Td Vaccines (1 - Tdap) 1987 Hepatitis B Vaccines (1 of 3 - 19+ 3-dose series) 1987 Pneumococcal Vaccine: 50+ Ye ars (1 of 1 - PCV) 2018 Zoster Vaccines (1 of 2) 2018 COVID-19 Vaccine ( - 2023-2 5 season) 2024 Cholesterol Screening (Lipid Panel) 07/25/2024 Colorectal Cancer Screening: Colonoscopy 07/25/2024 Depression Screening 07/25/2024 HIV Screening 07/25/2024 Hepatitis C Screening 07/25/2024 Social Influencers of Health Screening 07/25/2024 Influenza Vaccine (Season Ended) 2025 HIB Vaccines Aged Out No longer eligi ble based on patient's age to complete this topic HPV Vaccines Aged Out No longer eligi ble based on patient's age to complete this topic Hepatitis A Vaccines Aged Out No long er eligible based on patient's age to complete this topic IPV Vaccines Aged Out No longer eligi ble based on patient's age to complete this topic MMR Vaccines Aged Out No longer eligi ble based on patient's age to complete this topic Meningococcal ACWY Vaccine Aged Out N o longer eligible based on patient's age to complete this topic Meningococcal B Vaccine Aged Out No l onger eligible based on patient's age to complete this topic Pneumococcal Vaccine: Pediat rics (0 to 5 Years) and At-Risk Patients (6 to 64 Years) Aged Out No longer eligible b ased on patient's age to complete this topic RSV Immunization Patients Un ronnell 20 months Aged Out No longer eligible b ased on patient's age to complete this topic Varicella Vaccines Aged Out No longer eligible based on patient's age to complete this topic
--- OUTSIDE RECORDS SUMMARY | 2025-01-19 09:13 | XMS_ITS | Patient Health Record ---
Author Organization [facility] Address [address] [place] [address] Care Team Providers Care Dietetics Director Name Role Phone NONE, NONE Primary Care Provider He Moura Unavailable [phone] Results Component Value Reference Range Notes Complete Blood Count Auto Di ff Reviewed date:12/28/2024 01:03:31 PM Interpretation: Performing Lab:[facility], [address] [place] [phone] Notes/Report: White Blood Count 6.0 4.8-10.8 X10*3/uL Red Blood Count 4.43 4.60-5.80 X10*6/uL Hemoglobin 8.6 14.0-18.0 g/dl Hematocrit 28.8 42.0-52.0 % Mean Corpuscular Volume 65.0 80.0-98.0 fL Mean Corpuscular Hemoglobin 19.4 27.0-33.0 pg Mean Corpuscular HGB Conc 29.9 31.0-36.0 g/dl Red Cell Distribution Width 26.5 11.0-16.0 % Platelet Count 231 160-400 X10*3/uL Neutrophils Percent Auto 64.6 45-73 % Imm Gran Pct Auto 0.3 0.0-0.4 % Lymphocytes Percent Auto 21.2 20-40 % Monocytes Percent Auto 11.8 2-11 % Eosinophils Percent Auto 1.8 0-4 % Basophils Percent Auto 0.3 0-2 % NRBC Pct Auto 0.0 0.0-0.2 /100WBC Neutrophils Absolute Auto 3.9 2.0-8.3 x10*3/uL Imm Gran Abs Auto 0.02 0.00-0.03 X10*3/uL Lymphocytes Absolute Auto 1.3 1.2-4.9 X10*3/uL Monocytes Absolute Auto 0.7 0.1-1.2 X10*3/uL Eosinophils Absolute Auto 0.1 0.0-0.4 X10*3/uL Basophils Absolute Auto 0.0 0.0-0.2 X10*3/uL NRBC Abs Auto 0.000 0.0-0.012 X10*3/uL Basic Metabolic Panel Reviewed date:12/28/2024 01:03:24 PM Interpretation: Performing Lab:[facility], [address] [place] [phone] Notes/Report: Sodium 141 135-145 mmol/L Potassium 3.6 3.3-5.1 mmol/L Chloride 110 96-108 mmol/L Carbon Dioxide 25 22-29 mmol/L Anion Gap 10 12-20 Blood Urea Nitrogen 10 9-16 mg/dL Creatinine 0.78 0.5-1.4 mg/dL Creatinine Clr Calc Pharmacy 127.9 eGFR (calculated from the MDRD study equation) and eCrCl (calculated from the Cockcroft-Gault equation) are based on different parameters and may not yield comparable results. If eCrCl result is absurd, please check patient's height/weight. Estimated Glomerular Filt Rate > 60 Chronic Kidney Disease: Estimated GFR < 60 mL/min/1.73m2 Severe Kidney Disease: Estimated GFR < 15 mL/min/1.73m2 Glucose Random 88 60-115 mg/dL Calcium 8.9 8.4-10.2 mg/dL Basic Metabolic Panel Fastin g Reviewed date:12/28/2024 01:03:16 PM Interpretation: Performing Lab:[facility], [address] [place] [phone] Notes/Report: Glucose Fasting 89 60-99 mg/dL Pathology Reviewed date:01/01/2025 01:59:03 PM Interpretation: Performing Lab:[facility], [address] [place] [phone] Notes/Report: ---- Name: Jose Yun Age/Sex: 54/M : 1970 [facility]#: [id number] Unit#: [id number] Attend Dr: Marty Squires MD Re12/24/24 Status : DIS IN Location: [facility] 457-1 Disch: 12/27/24 ---- SPEC : [id number] RECD : 12/28/24-855 STATUS: NASH SALOMON NUM: [id number] CHRIS: 12/27/24-[address] [facility] [address]: He Myers MD ENTERED: 12/28/24- 15 SP TYPE: Surgical OTHR DR: Marty Squires MD ORDERED: HE Stain/3, Gross Micro L4/2, IHC, Special st. 2/2, H. pylori, AB/PAS/2 Diagnosis A. Duodenum, descend ing, biopsy: Duodenal mucosa within normal limits. B. Esophagus, 39-40 cm, biopsy: - Cardiofundic-type mucosa with severe chronic, focally active, inflammation; no intestinal metaplasi a seen. - Negative for H.pylori. - No squamous epithe lium identified. Clinical History Pre-Op Dx: Shortness of breath, symptomatic anemia Post-Op Dx: Hiatal hernia, reflux, hemorrhoids, diverticulosis Microscopic Description A, B. Microscopic sections examined. No metaplastic changes are seen, supported by AB/PAS stains (A and B); no Helicobacter organisms are seen, supported by H. pylori immunostain (B). Material Received A. Descending duoden um, r/o celiac disease B. Esophagus bx's 39 -40 cm Gross Description Received in two parts. Part A: Received in formalin labeled ?descending duodenum, rule out celiac disease? are 5 solo irregular tissue fragments ranging from less than 0.1-0.3 cm, submitted in toto in a cassette labeled A. Part B: Received in formalin labeled ?esophagus bx's 39-40 cm? are 5 pale, santiago-white and santiago-solo irregular tissue fragments ranging from 0.2-0.3 cm, submitted in toto in a cassette labeled B. CEDS Special studies orde red and performed: Immunostain for H. pylori on B; AB/PAS stains on A and B CONTINUED ON NEXT PAGE ---- Name: Jose Yun Age/Sex: 54/M : 1970 Unit#: [id number] Attend Dr: Marty Squires MD Re12/24/24 Status : DIS IN Location: [facility] 457-1 Disch: 12/27/24 ---- SPEC : [id number] RECD : 12/28/2456 STATUS: NASH SALOMON NUM: [id number] CHRIS: 12/27/24-[address] [facility] [address]: He Myers MD ENTERED: 12/28/24- 15 SP TYPE: Surgical OTHR DR: Marty Squires MD ORDERED: HE Stain/3, Gross Micro L4/2, IHC, Special st. 2/2, H. pylori, AB/PAS/2 Copies To: Marty Squires MD [address] [place] [address] He Myers MD [facility] [address] [place] [address] ---- Signed (signature on file) Aakash Nichols MD 12/30/24 1550 ---- END OF REPORT Reason For Referral No Information Problems Problem Type SNOMED Code ICD Code Onset Dates Problem Status W/U Status Risk Notes Problem Iron deficiency anemia (50959445) Iron deficiency anemia (D50.9) Active confirmed Problem Gastrointestinal hemorrhage (38615781) GI bleed (K92.2) Active confirmed Encounters Encounter Location Date Provider Diagnosis [facility] [address] [place] [address] 12/28/2024 He Myers Iron deficiency anemia D50.9 and GI bleed K92.2 Assessments Encounter Date Diagnosis (ICD Code) Assessment Notes Treatment Notes Treatment Clinical Notes Section Notes 12/28/2024 Iron deficiency anemia (ICD-10 - D50.9) Do all these labs the week of 01/10/2025. 12/28/2024 GI bleed (ICD-10 - K92.2) Plan Of Treatment Pending Test Test Name Order Date IRON + IBC (FE) 12/28/2024 CBC w DIFF 12/28/2024 Ferritin 12/28/2024 Vitamin B12 and Folate 12/28/2024 Next Appt Details Provider Name:He Bach Lucia , 03/08/2025 02:40:00 PM, [address], [address], [place], [address], Insurance Providers Payer Name Payer Address Payer Phone Subscriber Number Group Number Insured Name Patient Relationship to Insured Coverage Start Date Coverage End Date [facility] [address] [place], [place] [phone] [id number] JOSE YUN Self - patient is the insured
--- OUTSIDE RECORDS SUMMARY | 2025-01-19 09:13 | XMS_ITS ---
Author Organization [facility] Address [address] [place] [address] Care Team Providers Care Land Inspector Name Role Phone NONE, NONE Primary Care Provider Breezy sparks He Myers Mackenzie [phone] REASON FOR VISIT refer to doctor /hemorrhoids/ fyi update Problems Problem Type SNOMED Code ICD Code Onset Dates Problem Status W/U Status Risk Notes Problem Iron deficiency anemia (10527791) Iron deficiency anemia (D50.9) Active confirmed Problem Gastrointestinal hemorrhage (78418423) GI bleed (K92.2) Active confirmed Encounters Encounter Location Date Provider Diagnosis [facility] [address] [place] [phone] 12/28/2024 He Myers Iron deficiency anemia D50.9 and GI bleed K92.2 Assessments Encounter Date Diagnosis (ICD Code) Assessment Notes Treatment Notes Treatment Clinical Notes Section Notes 12/28/2024 Iron deficiency anemia (ICD-10 - D50.9) Do all these labs the week of 01/10/2025. 12/28/2024 GI bleed (ICD-10 - K92.2) Plan Of Treatment Treatment Notes Assessment Notes Iron deficiency anemia Do all these labs the week of 01/10/2025. Pending Test Test Name Order Date IRON + IBC (FE) 12/28/2024 CBC w DIFF 12/28/2024 Ferritin 12/28/2024 Vitamin B12 and Folate 12/28/2024 Next Appt Details Provider Name:He Myers , 03/08/2025 02:40:00 PM, [address], [address], [place], [address], Progress Notes * FRANCESCA ELDRIDGEDOB:1970 (54 yo M)Acc No.[id number]:12/28/2024 Patient:?JAZMYNSTEPANFRANCESCA :1970???Age:54 Y???Sex:Male Address:[address] [place] [address], [place], [address] Subjective: * Chief Complaints: * ???Refer to doctor /hemorrho ids/ fyi update * Medical History:? * Surgical History:? * Hospitalization/Major Diagno stic Procedure:? * Medications:? Objective: * Vitals:? * Physical Examination:? Assessment: * Assessment: 1.?Iron deficiency anemia - D50.9 (Primary)???2.?GI bleed - K92.2??? Plan: * Treatment: 2.?GI bleed?LAB: IRON + IBC (FE) ?LAB: CBC w DIFF ?LAB: Ferritin ?LAB: Vitamin B12 and Folate * Procedure Codes:? * true * Date:? Generated for Paty russell/Isela/eTransmitting on:?01/19/2025 09:12 AM EDT
== END 2025-01-19 09:20 | disposition home or self-care (01) ==
LOC: HO.HGS 08:45
PROVIDERS: Visit Provider Surgery
DX: K64.9 Unspecified hemorrhoids (principal)
CPT/HCPCS: 99203

== ENCOUNTER → 2025-01-19 08:44 | Outpatient (BNVA) | payer OTHER, SELFPAY | PROVIDERS: Visit Provider Surgery ==

== ENCOUNTER 2025-02-16 10:46 | Outpatient (AMB) | payer OTHER, SELFPAY ==
--- NOTE | 2025-02-16 10:49 | A.OFFVIS_ITS ---
Vital Signs 02/16/25 10:57 Height 6 ft Weight 219 lb BMI 29.7 BP 140/74 H Blood Pressure Location Rt brachial Position Sitting Pulse 76 Intake Visit Reasons: bleeding hemorrhoids Intake Note: Patient here for 1m follow up since last visit on January 19, 2025. Reports wakes up at 3am to start process. Patient c/o: 5-6 BM during the day. Bleeding hemorrhoids. Metamucil and Colace not helping. Scheduled w/Dr. Myesr in February. Operation Shift Supervisor Required: No Accompanied by: Self / Same As Patient Allergies No Known Allergies Allergy (Verified 02/16/25 10:50) HPI HPI bleeding hemorrhoids: Details: 54-year-old male here for follow-up for hemorrhoid issues. I actually 1st met him in December,. He says that he has had hemorrhoid problems for over 6 years now. He says he has always been chronically constipated. He says that he normally he was in the toilet for about an hour before having bowel movements and has to do about 3-4 bowel movements after that in the morning before going to work. He says that he does this every morning and he says he has to wake up about 330 in the morning to be able to go to work at 830 because of the amount of time he spends in the toilet He says that he has had bleeding for many years because of the bowel movements. He says he had to undergo transfusion last November 2023 in the hospital for weakness with a hemoglobin of 5.7. He had a colonoscopy last 12/28/2024 showing polyps which were benign. He says he does not see any primary care physician. At that time when I 1st saw him, he wanted to hold off on hemorrhoid surgery. However, he was concerned again because he continues to have periodic of the bleeding that he says comes in ?spurts?. He says he now wants to proceed with hemorrhoidectomy. [facility] Medical History Bleeding hemorrhoids Surgical History Hx of colonoscopy (12/28/24) Hx of esophagogastroduodenoscopy (12/28/24) Social History Household Members: None Housing: House Do you presently have visiting nurse or other home services: No Alcohol intake: current Alcohol intake frequency: a few times a month Patient Tobacco Use Status: Current everyday Tobacco user Tobacco use type: Smokeless Tobacco e-Cigarette/Vaping Use: Never Used Second Hand Smoke Exposure: No Substance Use Type: Marijuana Advance Directives Date on File: 12/27/24 service: Yes Review of Systems Const Denies chills and Denies fever(s) Card Denies chest pain, Denies dyspnea and Denies dyspnea on exertion Resp Denies cough, Denies dyspnea and Denies dyspnea on exertion GI Reports hematochezia and Denies change in bowel habits Denies hematuria and Denies difficulty urinating Musc Denies back pain and Denies limited range of motion Neuro Denies focal weakness and Denies convulsions Psych Denies depression and Denies mood swings Physical Exam Vital Signs: Last Vital Signs Pulse 76 02/16/25 10:57 BP 140/74 H 02/16/25 10:57 BMI result Body Mass Index 29.7 Const General: comfortable and no acute distress Orientation/consciousness: patient oriented x3 Neck Neck: Yes no lymphadenopathy Resp Auscultation: clear to auscultation bilaterally Cardio Rhythm: regular rhythm GI Other: Rectal exam shows a large hemorrhoidal column, a mix of internal with some prolapsing internal, mostly on the left but seen on both sides, no active bleeding currently Palpation (GI): Soft to palpation, nontender and no guarding Neuro General: patient oriented x3 Assessment & Plan Assessment & Plan (1) Bleeding hemorrhoids: Code(s): K64.9 - Unspecified hemorrhoids Category: Medical Plan: He has had significant periodic bleeding. He has a history of being transfused for this for hemoglobin 5.7 last November,. He is concerned because he continues to have periods of bleeding. He says he does not want to have any transfusion. He wants to proceed with hemorrhoidectomy I had a long discussion with him about the technique of exam under anesthesia and hemorrhoidectomy. I reviewed the risks including but not limited to bleeding, infections, postop pain, as well as benefits and alternatives. I reviewed with him what to expect postoperatively. He understands that there is still a chance of him having some bleeding postop depending on the extent of his hemorrhoids He wants to proceed. Coding Level of Care Code Est Pt Level 3 (34802) Diagnoses Bleeding hemorrhoids K64.9
[2025-02-16 10:57] VITALS: BP 140/74; PULSE 76; BMI 29.7
--- OUTSIDE RECORDS SUMMARY | 2025-02-16 12:17 | XMS_ITS ---
Author Organization [facility] Address [address] [place] [address] Care Team Providers Care Wellness Rn Name Role Phone NONE, NONE Primary Care Provider Breezy sparks He Myers Mackenzie [phone] REASON FOR VISIT refer to doctor /hemorrhoids/ fyi update Problems Problem Type SNOMED Code ICD Code Onset Dates Problem Status W/U Status Risk Notes Problem Iron deficiency anemia (39538761) Iron deficiency anemia (D50.9) Active confirmed Problem Gastrointestinal hemorrhage (60940692) GI bleed (K92.2) Active confirmed Encounters Encounter Location Date Provider Diagnosis [facility] [address] [place] [phone] 12/28/2024 He Myers Iron deficiency anemia D50.9 [...] Name:He Myers , 03/08/2025 02:40:00 PM, [address], [address], [place], [address], Progress Notes * FRANCESCA ELDRIDGEDOB:1970 (54 yo M)Acc No.[id number]:12/28/2024 Patient:?JAZMYNSTEPANFRANCESCA :1970???Age:54 Y???Sex:Male Address:[address] [place] [address], [place], [address] Subjective: * Chief Complaints: * ???Refer to [...] true * Date:? Generated for Paty russell/Isela/eTransmitting on:?02/16/2025 12:16 PM EDT
--- OUTSIDE RECORDS SUMMARY | 2025-02-16 12:17 | XMS_ITS | Patient Health Record ---
Author Organization [facility] Address [address] [place] [address] Care Team Providers Care Batch Mixing Truck Driver Name Role Phone NONE, NONE Primary Care Provider He Moura Unavailable [phone] Results Component Value Reference Range Notes Complete Blood Count Auto Di ff Reviewed date:12/28/2024 01:03:31 PM Interpretation: Performing Lab:[facility], [address] [place] [phone] Notes/Report: White Blood Count 6.0 4.8-10.8 X10*3/uL [...] Panel Reviewed date:12/28/2024 01:03:24 PM Interpretation: Performing Lab:[facility], [address] [place] [phone] Notes/Report: Sodium 141 135-145 mmol/L Potassium 3.6 [...] g Reviewed date:12/28/2024 01:03:16 PM Interpretation: Performing Lab:[facility], [address] [place] [phone] Notes/Report: Glucose Fasting 89 60-99 mg/dL Pathology Reviewed date:01/01/2025 01:59:03 PM Interpretation: Performing Lab:[facility], [address] [place] [phone] Notes/Report: ---- Name: Jose Yun Age/Sex: 54/M : 1970 [facility]#: [id number] Unit#: [id number] Attend Dr: Marty Squires MD Re12/24/24 Status : DIS IN Location: [facility] 457-1 Disch: 12/27/24 ---- SPEC : [id number] RECD : 12/28/24-855 STATUS: NASH SALOMON NUM: [id number] CHRIS: 12/27/24-[address] [facility] [address]: He Myers MD ENTERED: 12/28/24- [...] Jose Yun Age/Sex: 54/M : 1970 Unit#: [id number] Attend Dr: Marty Squires MD Re12/24/24 Status : DIS IN Location: [facility] 457-1 Disch: 12/27/24 ---- SPEC : [id number] RECD : 12/28/2456 STATUS: NASH SALOMON NUM: [id number] CHRIS: 12/27/24-[address] [facility] [address]: He Myers MD ENTERED: 12/28/24- 15 SP TYPE: Surgical OTHR DR: Marty Squires MD ORDERED: HE Stain/3, Gross Micro L4/2, IHC, Special st. 2/2, H. pylori, AB/PAS/2 Copies To: Marty Squires MD [address] [place] [address] He Myers MD [facility] [address] [place] [address] ---- Signed (signature on file) Aakahs Nichols MD 12/30/24 1550 ---- END OF REPORT Reason For Referral No Information Problems Problem Type SNOMED Code ICD Code Onset Dates Problem Status W/U Status Risk Notes Problem Iron deficiency anemia (D50.9) Active confirmed Problem Gastrointestinal hemorrhage (76026360) GI bleed (K92.2) Active confirmed Encounters Encounter Location Date Provider Diagnosis [facility] [address] [place] [address] 12/28/2024 He Myers Iron deficiency anemia D50.9 [...] Name:He Myers , 03/08/2025 02:40:00 PM, [address], [address], [place], [address], Insurance Providers Payer Name Payer Address Payer Phone Subscriber Number Group Number Insured Name Patient Relationship to Insured Coverage Start Date Coverage End Date [facility] [address] [facility] [place] [phone] [id number] JOSE YUN Self - patient is the insured
--- OUTSIDE RECORDS SUMMARY | 2025-02-16 12:17 | XMS_ITS | Clinical Summary ---
Author Organization [facility] Address [address] [place] [address] Care Team Providers Care Service Establishment Attendant Name Role Phone Unavailable Primary Care Provider [...]
== END 2025-02-16 11:15 | disposition home or self-care (01) ==
LOC: HO.HGS 10:47
PROVIDERS: Visit Provider Surgery
DX: K64.9 Unspecified hemorrhoids (principal)
CPT/HCPCS: 99213

== ENCOUNTER 2025-02-28 15:02 | Outpatient (AMB) | payer OTHER, SELFPAY ==
[2025-02-28 15:16] VITALS: BP 129/74; PULSE 82; RESP 16; TEMP 36.5; O2SAT 99; BMI 29.4
--- NOTE | 2025-02-28 15:16 | A.OFFPC_ITS ---
Vital Signs 02/28/25 15:16 Height 6 ft Weight 217 lb BMI 29.4 BP 129/74 Respiration 16 Pulse 82 Pulse Source Pulse Oximeter Temp 97.7 F Temp Source Temporal Artery Scan Pulse Oximetry (%) 99 Oxygen Delivery Method Room Air Intake Visit Reasons: establish care; bleeding hemorrhoids Verification Engineer Required: No Accompanied by: Self / Same As Patient Allergies No Known Allergies Allergy (Verified 02/28/25 16:03) Medication List - Last Reconciled 02/28/25 by Amisha Landry PA-C ferrous sulfate 324 mg PO BIDWM finasteride (Propecia) 1 mg PO DAILY omeprazole 20 mg PO DAILY@629 Tobacco use date assessed: 02/28/25 Dental Screening Dental Screen Date: 02/28/25 Did you have a dental visit in the last 12 months?: No Did you have a dental problem in the last 6 months where you did not have access to dental care?: No Was dental information given to patient?: Patient has dentist HPI establish care; bleeding hemorrhoids HPI Details The patient is a 54-year-old male presenting ablation new primary care provider along with issues related to long-standing anemia secondary to hemorrhaging. The anemia, which began approximately seven years ago, is primarily attributed to rectal bleeding from hemorrhoids and was severe enough in November 2024 to require an urgent transfusion at hemoglobin levels as low as 5.7 g/dL. The bleeding exhibits a cyclical pattern, occurring intermittently and associated with protracted and frequent bowel movements, which can last up to five hours a day. Despite modifying his diet and intentionally losing weight, there has been no significant change in the bowel movement duration. Intermittent bleeding severe enough to necessitate blood transfusions 2-3 times per year has led the patient to seek further evaluation and management of this condition. Previous assessments via colonoscopy recently on 12/28/2024 revealed hemorrhoids and diverticulosis; CT imaging provided insights into diverticular disease, cystic lesions on the liver and kidney, and pulmonary nodules. While the patient's lifestyle and diet adjustments have not ameliorated his symptoms, accompanying concerns about possible malignancy at multiple sites due to occupational hazards further complicate his clinical presentation. 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 - Exercise: Exercises regularly. - Substance Use: Chews tobacco, denies s moking cigarettes. - Nutrition: Consumes large meals, thoug h intentionally reduced portion sizes to modify bowel symptoms; recent weight loss of approximately 20 pounds. 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 [facility] Medical History (Updated 02/28/25 @ 16:10 by Amisha Landry PA-C) Spondylosis Lesion of liver Diverticular disease of colon Establishing care with new doctor, encounter for Benign skin lesion Kidney lesion Chewing tobacco dependence Pulmonary nodules Severe anemia Bleeding hemorrhoids Surgical History Hx of colonoscopy (12/28/24) Hx of esophagogastroduodenoscopy (12/28/24) Family History Father Lung cancer Mother No problems noted. Social History Household Members: None Housing: House Do you presently have visiting nurse or other home services: No Alcohol intake: current Alcohol intake frequency: a few times a week Patient Tobacco Use Status: Current everyday Tobacco user Tobacco use type: Smokeless Tobacco e-Cigarette/Vaping Use: Never Used Second Hand Smoke Exposure: No Substance Use Type: Marijuana Advance Directives Date on File: 12/27/24 service: Yes Current occupational status: employed Cognitive needs: No Hearing needs: No Vision needs: Yes (rx glasses) Questionnaire PHQ-9 Over the last 2 weeks, how often have you been bothered by any of the following problems? 1. Little interest or pleasure in doing things: not at all 2. Feeling down, depressed, or hopeless: not at all 3. Trouble falling or staying asleep, or sleeping too much: not at all 4. Feeling tired or having little energy: not at all 5. Poor appetite or overeating: not at all 6. Feeling bad about yourself - or that you are a failure or have let yourself or your family down: not at all 7. Trouble concentrating on things, such as reading the newspaper or watching television: not at all 8. Moving or speaking so slowly that other people could have noticed. Or the opposite - being so fidgety or restless that you have been moving around a lot more than usual: not at all 9. Thoughts that you would be better off or of hurting yourself in some way: not at all Total score: 0 Depression Screening Interpretation: Negative Depression Screening Done: Yes 90878 - PHQ-9 Billing: Yes Source: Developed by Drs. He Escalante, Viviana Chen, Delio Alejandre and colleagues, with an educational briana from [employer]. Thrive Questionnaire Date Thrive assessed: 12/25/24 I am a: Patient What is your living situation today?: I have a steady place to live Within the past 12 months, did the food you bought not last and you didn't have the money to get more?: Never true Within the past 12 months, did you worry whether your food would run out before you got money to buy more?: Never true Do you have trouble paying for medicines?: No Do you have trouble getting transportation to medical appointments?: No Do you have trouble paying your heating and electricity bill?: No Do you have trouble taking care of your child, family member or friend?: No Do you have trouble with day-to-day activities such as bathing, preparing meals, shopping, managing finances, etc.?: No Are you currently unemployed and looking for a job?: No Are you interested in more education?: No Please select the resources that you would like help with: None THRIVE Score: 0 AUDIT C Alcohol Use Questionnaire (AUDIT-C) 1. How often do you have a drink containing alcohol?: 2-3 times a week 2. How many drinks containing alcohol do you have on a typical day when you are drinking?: 1 or 2 3. How often do you have six or more drinks on one occasion?: Never Total Score: 3 Score Reviewed/Action Taken: No FELY-7 AMB Questionnaire FELY-7 Date FELY - 7 assessed: 02/28/25 Feeling nervous, anxious, or on edge: 0 = Not at all Not being able to stop or control worryin = Not at all Worrying too much about different things: 0 = Not at all Trouble relaxin = Not at all Being so restless that it is hard to sit still: 0 = Not at all Becoming easily annoyed or irritable: 0 = Not at all Feeling afraid as if something awful might happen: 0 = Not at all Total FELY-7 score (0-4 normal; 5-9 mild; 10-14 moderate; 15-21 severe): 0 Source: Developed by Drs. He Escalante, Viviana Chen, Delio Alejandre and colleagues, with an educational briana from [employer]. FELY-7 Assessment Billing FELY-7 Assessment Tool: FELY-7 Assessment 50960 Review of Systems Const Details: - Gastrointestinal: Reports significant rectal bleeding associated with hemorrhoids. Denies abdominal pain post-prandially linked with diverticular episodes. - Respiratory: Reports chronic cough attributed to occupational dust exposure. - Neurological: Reports occasional dizziness. - Integumentary: Reports longstanding lesions on the neck that itch intermittently. - Musculoskeletal: Denies any aches or pains from occupational activities or exercise routines. Physical exam (Primary Care) Vital Signs: Last Vital Signs Temp 97.7 F 02/28/25 15:16 Pulse 82 02/28/25 15:16 Resp 16 02/28/25 15:16 BP 129/74 02/28/25 15:16 Pulse Ox 99 02/28/25 15:16 Oxygen Delivery Method Room Air 02/28/25 15:16 Care Plan Goal for BP management: <140/90 at Goal BMI result Body Mass Index 29.4 BMI Assessment/Plan discussion: High BMI High, discussed plan: lifestyle, weight reduction, dietary, physical activity and alcohol moderation Tobacco/Smoking Status: Tobacco use Status Tobacco use date assessed 02/28/25 02/28/25 15:23 Patient Tobacco Use Status Current everyday Tobacco 02/28/25 15:23 Tobacco use type Smokeless Tobacco 02/28/25 15:23 e-Cigarette/Vaping Use Never Used 02/28/25 15:23 PHQ-9: PHQ-9 Score PHQ-9: Total score 0 02/28/25 15:23 Depression Screening Interpretation: Negative Thrive Assessment: Date of Thrive Assessment Date Thrive assessed 12/25/24 02/28/25 15:23 Const Other: Appearance: Alert. Oriented X3. No acute distress. Head: Normal external exam. Normocephalic. Atraumatic. Eyes: Pupils are equal, round, and reactive to light. Extraocular movements intact. Conjunctiva and sclera normal. Eyelids normal. Ears: External auditory canal normal. Tympanic membranes normal. Throat: Pharynx normal. Uvula midline. Moist mucous membranes. Neck: Normal inspection. Neck supple. Full range of motion. Cardiovascular: Normal heart rate and rhythm. Heart sound normal. No murmurs noted. Pulses normal throughout. Respiratory: No respiratory distress. Painless inspiration. Breath sounds normal. No wheezes/rales/rhonchi noted. Chest nontender. No accessory muscle usage noted or decreased air movement noted. Abdomen: Soft and nontender. No distention noted. No organomegaly noted. No visible injury noted. External hemorrhoids noted not thrombosed and no active bleeding at this time. Back: Full range of motion noted. Skin: Skin warm and dry. Normal skin color. Normal skin turgor. No rashes/lesions/lacerations noted. Notable for lesions on the neck, possibly sunburns, present for over a year. Extremities: No lower extremity edema. Extremities exhibit normal range of motion. Extremities nontender. Neuro: Oriented X 3. No motor deficit. No sensory deficit. Reflexes normal. Results Reviewed Results Reviewed: - Labs: Previous Hemoglobin and Hematocrit levels at 5.7 g/dL - November 2024. - Diagnostic Imaging: CT scan revealing diverticula in the duodenum; cystic lesions on liver and kidney; presence of pulmonary nodules. - Colonoscopy: Confirms diverticulosis and hemorrhoids. Coding Level of Care Code Est Pt Level 4 (64083) Complex EM visit Add On G2211 Diagnoses Establishing care with new doctor, encounter for Z. Severe anemia D64.9 External hemorrhoids K64.4 Diverticular disease of colon K57.30 Pulmonary nodules R91.8 Lesion of liver K76.9 Spondylosis M47.9 Chewing tobacco dependence F17.220 Additional Codes PHQ-9 - 01449 - PHQ-9 Billing: Yes ([id number]) FELY-7 Assessment Billing - FELY-7 Assessment Tool: FELY-7 Assessment 41540 ([id number]) Time Spent (min) 50 Assessment & Plan Assessment & Plan (1) Establishing care with new doctor, encounter for: Code(s): Z76.89 - Persons encountering health services in other specified circumstances Category: Medical (2) Severe anemia: Code(s): D64.9 - Anemia, unspecified Category: Medical Plan: Plan includes hematology referral and hemoglobin reassessment with CBC and iron studies. (3) External hemorrhoids: Code(s): K64.4 - Residual hemorrhoidal skin tags Category: Medical Plan: Plan includes surgical intervention evaluation by Dr. Robin. (4) Diverticular disease of colon: Code(s): K57.30 - Diverticulosis of large intestine without perforation or abscess without bleeding Category: Medical Plan: Plan includes ongoing monitoring and patient education. Condition is chronic and stable will continue to monitor. (5) Pulmonary nodules: Code(s): R91.8 - Other nonspecific abnormal finding of lung field Category: Medical Plan: Plan includes pulmonology referral for further evaluation. (6) Lesion of liver: Code(s): K76.9 - Liver disease, unspecified Category: Medical Plan: Plan includes a GI follow-up for further assessment. (7) Spondylosis: Code(s): M47.9 - Spondylosis, unspecified Category: Medical Plan: Symptomatic management as needed. Condition is chronic and stable continue to monitor. (8) Chewing tobacco dependence: Code(s): F17.220 - Nicotine dependence, chewing tobacco, uncomplicated Category: Medical Plan: Discussion on cessation offered. Condition is chronic and stable continue to monitor. Plan Plan Patient was informed and verbally consented to the use of an ambient scribe for clinic note documentation during this visit. 1. Anemia Due To Hemorrhaging Plan includes urgent hematology referral and hemoglobin reassessment with CBC and iron studies. 2. Hemorrhoids Plan includes surgical intervention evaluation by Dr. Robin. 3. Diverticular Disease Plan includes ongoing monitoring and patient education. 4. Pulmonary Nodules Plan includes pulmonology referral for further evaluation. 5. Cystic Lesion On Liver Plan includes a GI follow-up for further assessment. 6. Cystic Lesion On Kidney Plan includes a pending urology referral. 7. Spondylosis Symptomatic management as needed. 8. Tobacco Chewing Discussion on cessation offered. During this visit, I discussed with the patient the potential causes of his severe anemia, including the relationship to the hemorrhoidal bleeding and its necessity for frequent transfusions. The significance of his colonic and imaging findings, including the cystic lesions and pulmonary nodules, was detailed as part of a comprehensive diagnostic approach to rule out malignancy and other contributing factors. I emphasized the benefit of specialist referrals in hematology, pulmonology, urology, and gastroenterology given the complexity of his presentation. The procedural risks and expected outcomes were discussed for the hemorrhoid treatment, ensuring an understanding of how this could ameliorate symptom severity. I also explored the relationship between his occupational exposure and respiratory findings, advising pulmonology follow-up for certainty. I structured the instructions for him to seek care immediately should symptoms exacerbate, and follow-up blood work was recommended to monitor hemoglobin and hematocrit levels effectively. Orders: Orders Hemoglobin A1c Today Z00.00 - Encounter for general adult medical examination without abnormal findings C Reactive Protein Today Z00.00 - Encounter for general adult medical examination without abnormal findings Liver Panel Today Z00.00 - Encounter for general adult medical examination without abnormal findings Magnesium Today Z00.00 - Encounter for general adult medical examination without abnormal findings TSH reflex Free T4 Today Z00.00 - Encounter for general adult medical examination without abnormal findings ECG 12 lead EKG Today D64.9 - Anemia, unspecified Ferritin Today D64.9 - Anemia, unspecified Comprehensive Met. Panel Today Z00.00 - Encounter for general adult medical examination without abnormal findings Complete Blood Count Auto Diff Today Z00.00 - Encounter for general adult medical examination without abnormal findings Erythrocyte Sedimentation Rate Today Z00.00 - Encounter for general adult medical examination without abnormal findings IRON PROFILE Today D64.9 - Anemia, unspecified Lipid Panel Today Z00.00 - Encounter for general adult medical examination without abnormal findings Vitamin B12 and Folate Today Z00.00 - Encounter for general adult medical examination without abnormal findings Vitamin D 25-OH Total Today Z00.00 - Encounter for general adult medical examination without abnormal findings PSA,Total (Free>4and<10) Today Z00.00 - Encounter for general adult medical examination without abnormal findings Referrals Pulmonology Referral D64.9 - Anemia, unspecified, F17.220 - Nicotine dependence, chewing tobacco, uncomplicated, R91.8 - Other nonspecific abnormal finding of lung field Urology Referral D64.9 - Anemia, unspecified, N28.9 - Disorder of kidney and ureter, unspecified Hematology & Oncology Referral D64.9 - Anemia, unspecified, K64.9 - Unspecifie d hemorrhoids Dermatology Referral L98.9 - Disorder of the skin and subcutaneous tissue, unspecified Medications: Refilled ferrous sulfate 324 mg PO BIDWM 180 tabs 1RF Patient Instructions: - Schedule and attend appointments with hematology, pulmonology, urology, and gastroenterology. - Follow up for blood work according to instructed schedule. - Ensure fasting for designated blood tests to achieve accurate lab results. - Continue taking prescribed iron supplements as directed. - Seek immediate care if symptoms such as dizziness, severe bleeding, or respiratory distress occur. - Consider options for tobacco cessation to improve overall health. - Monitor and record changes in symptoms, particularly bleeding and stool patterns. - Return for follow-up care as scheduled to reassess health status.
--- OUTSIDE RECORDS SUMMARY | 2025-02-28 16:18 | XMS_ITS ---
Author Organization [facility] Address [address] [place] [address] Care Team Providers Care Puller Over Name Role Phone NONE, NONE Primary Care Provider Breezy MyersHe Mackenzie [phone] REASON FOR VISIT refer to doctor /hemorrhoids/ fyi update Problems Problem Type SNOMED Code ICD Code Onset Dates Problem Status W/U Status Risk Notes Problem Iron deficiency anemia (D50.9) Active confirmed Problem Gastrointestinal hemorrhage (90821263) GI bleed (K92.2) Active confirmed Encounters Encounter Location Date Provider Diagnosis [facility] [address] [place] [address] 12/28/2024 He Myers Iron deficiency anemia D50.9 [...] 02:40:00 PM, [address], [address], [place], [address], Progress Notes * JAZMYNSTEPANMARGARETDOB:1970 (54 yo M)Acc No.[id number]:12/28/2024 Patient:?JAZMYNFRANCESCA :1970???Age:54 Y???Sex:Male Address:[address] [place] [address], [place], [address] Subjective: * Chief Complaints: * ???Refer to [...] * true * Date:? Generated for Paty russell/Isela/eTalissmitting on:?02/28/2025 04:18 PM EDT
== END 2025-02-28 15:59 | disposition home or self-care (01) ==
LOC: HO.HMCSH 15:02
PROVIDERS: PCP Internal Medicine; Visit Provider Physician Assistant Medical
DX: Z76.89 Persons encountering health services in other specified circumstances (principal); D64.9 Anemia, unspecified; K64.4 Residual hemorrhoidal skin tags; K57.30 Diverticulosis of large intestine without perforation or abscess without bleeding; R91.8 Other nonspecific abnormal finding of lung field; K76.9 Liver disease, unspecified; M47.9 Spondylosis, unspecified; F17.220 Nicotine dependence, chewing tobacco, uncomplicated

== ENCOUNTER → 2025-02-28 15:02 | Outpatient (BNVA) | payer OTHER, SELFPAY | PROVIDERS: PCP Internal Medicine; Visit Provider Physician Assistant Medical | DX: K64.4 Residual hemorrhoidal skin tags (principal); K57.30 Diverticulosis of large intestine without perforation or abscess without bleeding; R91.8 Other nonspecific abnormal finding of lung field; K76.9 Liver disease, unspecified; M47.9 Spondylosis, unspecified; F17.290 Nicotine dependence, other tobacco product, uncomplicated; D50.0 Iron deficiency anemia secondary to blood loss (chronic); N28.9 Disorder of kidney and ureter, unspecified | CPT/HCPCS: 96127 ==

== ENCOUNTER 2025-03-02 07:46 | Outpatient (REF) | payer OTHER, SELFPAY ==
[2025-03-02 10:09] LABS: MANUAL DIFF FLAG NO
[2025-03-02 10:22] LABS: Basophils Percent Auto 0.2 % (0-2); Eosinophils Absolute Auto 0.1 X10*3/uL (0.0-0.4); Eosinophils Percent Auto 1.6 % (0-4); Hematocrit 30.8 % (42.0-52.0); Imm Gran Abs Auto 0.02 X10*3/uL (0.00-0.03); Imm Gran Pct Auto 0.4 % (0.0-0.4); Lymphocytes Absolute Auto 1.5 X10*3/uL (1.2-4.9); Lymphocytes Percent Auto 30.3 % (20-40); Mean Corpuscular HGB Conc 29.2 g/dl (31.0-36.0); Mean Corpuscular Hemoglobin 20.5 pg (27.0-33.0); Mean Corpuscular Volume 70.3 fL (80.0-98.0); Monocytes Absolute Auto 0.5 X10*3/uL (0.1-1.2); Monocytes Percent Auto 9.3 % (2-11); Neutrophils Absolute Auto 2.8 x10*3/uL (2.0-8.3); Neutrophils Percent Auto 58.2 % (45-73); Platelet Count 250 X10*3/uL (160-400); Red Blood Count 4.38 X10*6/uL (4.60-5.80); Red Cell Distribution Width 23.9 % (11.0-16.0); White Blood Count 4.9 X10*3/uL (4.8-10.8)
[2025-03-02 10:38] LABS: Estimated Average Glucose 103 mg/dL; Hemoglobin A1c % 5.2 % (<6.0)
[2025-03-02 10:55] LABS: Erythrocyte Sedimentation Rate 9 MM/HR (0-15)
[2025-03-02 11:23] LABS: Alanine Aminotransferase 13 U/L (0-40); Anion Gap 11 (12-20); Aspartate Amino Transferase 36 U/L (5-37); Bilirubin Direct 0.2 mg/dL (0.0-0.5); Bilirubin Total 0.5 mg/dL (0.0-1.0); Blood Urea Nitrogen 19 mg/dL (9-16); C Reactive Protein < 0.10 mg/dL (< or = 0.50); Calcium 9.4 mg/dL (8.4-10.2); Carbon Dioxide 28 mmol/L (22-29); Chloride 109 mmol/L (96-108); Estimated Glomerular Filt Rate > 60; Glucose Random 109 mg/dL (60-115); Iron 17 mcg/dL (45-160); Percent Iron Saturation 5 % (15-50); Potassium 4.4 mmol/L (3.3-5.1); Sodium 144 mmol/L (135-145); Total Iron Binding Capacity 350 mcg/dL (228-428); Total Protein 6.7 g/dL (6.5-8.0); Unsaturated Iron Binding 333 ug/dL
[2025-03-02 11:26] LABS: PSA,Total (Free>4and<10) 16.39 ng/mL (0.00-4.00)
[2025-03-02 11:30] LABS: Folate 12.9 ng/mL (> or = 4.0); Vitamin B12 432 pg/mL (200-900)
[2025-03-02 11:40] LABS: Ferritin 6 ng/mL (20-250); TSH reflex Free T4 5.87 uIU/mL (0.32-4.0); Vitamin D 25-OH Total 49.8 ng/mL (>30)
[2025-03-02 13:11] LABS: Alkaline Phosphatase 31 U/L (39-117)
[2025-03-02 13:26] LABS: Free T4 (Free Thyroxine) 0.91 ng/dL (0.71-1.85)
== END 2025-03-02 07:47 | disposition home or self-care (01) ==
LOC: HO.HMGCLDS 07:46
PROVIDERS: Visit Provider Physician Assistant Medical
DX: Z00.00 Encounter for general adult medical examination without abnormal findings (principal); D64.9 Anemia, unspecified; Z12.5 Encounter for screening for malignant neoplasm of prostate; Z13.1 Encounter for screening for diabetes mellitus
CPT/HCPCS: 36415; 80053; 82248; 82306; 82607; 82728; 82746; 83036; 83540; 83735; 84153; 84439; 84443; 85025; 85652; 86140

== ENCOUNTER → 2025-03-04 11:33 | Outpatient (BNV) | payer OTHER, SELFPAY | PROVIDERS: PCP Internal Medicine; Referring Provider Internal Medicine; Visit Provider Internal Medicine | DX: D50.9 Iron deficiency anemia, unspecified (principal) | CPT/HCPCS: 99203 ==

== ENCOUNTER 2025-03-24 08:52 | Outpatient (AMB) | payer OTHER, SELFPAY ==
--- NOTE | 2025-03-24 09:17 | A.OFFVIS_ITS ---
Intake Visit Reasons: Elevated PSA Intake Note: New Patient presents for initial visit for Elevated PSA Urology Medications: ? Finasteride Blood Thinner: none Faculty Dean Required: No Roll Capper: Roll Capper offered & declined Accompanied by: Self / Same As Patient Allergies No Known Allergies Allergy (Verified 03/24/25 09:54) Medication List - Last Reconciled 03/24/25 by ZAID Gastelum ferrous sulfate 324 mg PO BIDWM finasteride (Propecia) 1 mg PO DAILY levothyroxine 25 mcg PO DAILY 6 weeks omeprazole 20 mg PO DAILY@0630 sulfamethoxazole-trimethoprim 800-160 mg (Bactrim DS) 1 tab PO BID 14 days HPI Comments Details: Jose is a 54-year-old male patient of Dr. Perales. He has a past medical history of subclinical hypothyroidism, elevated PSA, lesion of the liver, renal cyst, chewing tobacco dependence, pulmonary nodules, severe anemia, and hemorrhoids. He presents to the office today as a new patient for an elevated PSA. In discussion with the patient today he reports recently establishing primary care as he he has not had a primary care provider in many years. He discusses seeking emergency room care approximately 3 months ago for ongoing issues he had been experiencing at which time he was noted to be anemic and required 3 units of blood. He reports shortly after he establish PCP care and had labs performed. He is unsure as to why he has this appointment today. In review of patient's chart it appears PSA 03/23 16.4. He discusses his upcoming surgery with Dr. Robin for hemorrhoidectomy. When asked he denies any known family history of prostate cancer. JE was offered and performed no suspicious nodules palpated however left-side of the prostate does feel boggy. When asked he does report a longstanding history of urinary frequency and nocturia however relates this to his increased consumption of water. In office urinalysis results reviewed with the patient today. We did discussed at length potential causes of elevated PSA as well as further treatment options and risks and benefits of these treatment options. We discussed treatment of prostatitis given JE. He denies incontinence, hematuria, dysuria, foul smelling urine, changes to urinary stream, flank pain, fever, and or chills. He is happy with his current voiding parameters. [facility] Medical History Subclinical hypothyroidism Elevated PSA Spondylosis Lesion of liver Diverticular disease of colon Establishing care with new doctor, encounter for Benign skin lesion Kidney lesion Chewing tobacco dependence Pulmonary nodules Severe anemia Bleeding hemorrhoids Surgical History Hx of colonoscopy (12/28/24) Hx of esophagogastroduodenoscopy (12/28/24) Family History Father Lung cancer Mother No problems noted. Social History Household Members: None Housing: House Do you presently have visiting nurse or other home services: No Alcohol intake: current Alcohol intake frequency: a few times a week Patient Tobacco Use Status: Current everyday Tobacco user Tobacco use type: Smokeless Tobacco e-Cigarette/Vaping Use: Never Used Second Hand Smoke Exposure: No Substance Use Type: Marijuana Advance Directives Date on File: 12/27/24 service: Yes Current occupational status: employed Cognitive needs: No Hearing needs: No Vision needs: Yes (rx glasses) Review of Systems Const All systems reviewed & are unremarkable except as noted in HPI and below Physical Exam Const General: cooperative, healthy appearing, comfortable, no acute distress, well developed, alert and awake Orientation/consciousness: patient oriented x3 Limitations: no limitations HEENT Head: Yes normal to inspection, Yes normocephalic and Yes atraumatic Ears: hearing grossly normal bilaterally Eyes General: appearance normal, both eyes and all related structures Neck Neck: Yes normal visual inspection and Yes trachea midline Chest Chest palpation & inspection: normal inspection of the chest Resp Effort & Inspection: normal respiratory effort and able to speak in complete sentences Cardio Rate: regular rate GI Inspection: Yes normal to inspection Other: Patient with active external hemorrhoid JE: per HPI General: Yes no CVA tenderness Back/Spine/Pelvis Back: no CVA tenderness Skin General skin exam: no rashes or lesions noted Neuro General: patient oriented x3 Extrem General: Yes normal to inspection Psych Appearance: grossly normal and well kempt Mental Status: mental status grossly normal Speech and movement: Normal speech and movement present and Clear speech present Affect: normal affect Attitude: cooperative Thought process: Normal thought process present Thought content: Normal thought content present Insight: Fair insight present (Psych) Judgement: Fair judgement present (Psych) Results AMB Urinalysis, Automated UA Leukoctes 0 Farheen/uL Last Edit by CALVIN Jauregui on 03/24/25 09:30 UA Nitrite Last Edit by Ron Marr [facility] on 03/24/25 09:30 UA Urobilinogen 0.2 mg/dL Last Edit by Ron Marr [facility] on 03/24/25 09:3 0 UA Protein 15 mg/dL Last Edit by Ron Marr [facility] on 03/24/25 09:30 UA pH 6.0 Last Edit by Ron Marr [facility] on 03/24/25 09:30 UA Blood 0 Ottoniel/uL Last Edit by Ron Marr [facility] on 03/24/25 09:30 UA Specific [place] 1.020 Last Edit by Ron Marr [facility] on 03/24/25 09: 30 UA Ketone Last Edit by Ron Marr [facility] on 03/24/25 09:30 UA Bilirubin 1 mg/dL Last Edit by Ron Marr [facility] on 03/24/25 09:30 UA Glucose 0 mg/dL Last Edit by Ron Marr [facility] on 03/24/25 09:30 Results Reviewed Results Reviewed: Laboratory Last Values Urine pH (Auto) 6.0 03/24/25 09:29 Specific [place] (Auto) 1.020 03/24/25 09:29 Urine Protein (Auto) 15 mg/dL 03/24/25 09:29 Glucose (UA)(Auto) 0 mg/dL 03/24/25 09:29 Urine Blood (Auto) 0 Ottoniel/uL 03/24/25 09:29 Urine Bilirubin (Auto) 1 mg/dL 03/24/25 09:29 Urine Urobilinogen (Auto) 0.2 mg/dL 03/24/25 09:29 Leukocyte Esterase (Auto) 0 Farheen/uL 03/24/25 09:29 Assessment & Plan Assessment & Plan (1) Elevated PSA: Code(s): R97.20 - Elevated prostate specific antigen [PSA] Category: Medical (2) Prostatitis: Code(s): N41.9 - Inflammatory disease of prostate, unspecified Category: Medical Plan In office urinalysis results with the patient today; as noted above. Recent PSA results with the patient today; as noted above. JE performed; as noted above. Will obtain retroperitoneal ultrasound for further assessment evaluation. Start Bactrim as discussed and prescribed. We discussed obtaining redraw of PSA 4-6 weeks status post completion of antibiotic therapy. We did discussed potential causes of elevated PSA as well as further treatment options and risks and benefits of these treatment options. He currently denies any bothersome urinary issues. He reports be happy with current voiding parameters. Follow-up in 1-2 months; or sooner with any issues, concerns, and or questions. Orders: Orders AMB Urinalysis Automated Today Z13.9 - Encounter for screening, unspecified US retroperitoneal comp Today N41.9 - Inflammatory disease of prostate, unspecified, R97.20 - Elevated prostate specific antigen [PSA] PSA,Total (Free>4and<10) 6 Weeks R97.20 - Elevated prostate specific antigen [PSA] Medications: New sulfamethoxazole-trimethoprim 800-160 mg (Bactrim DS) 1 tab PO BID 28 tabs 0RF 14 days N39.0 - Urinary tract infection, site not specified Patient Instructions: The patient had an opportunity to ask questions regarding the treatment plan. All questions were answered. Physical exam, labs, and imaging were discussed and reviewed in detail. As well as risks, benefits, and discussion of treatment choices. No major barriers to understanding were identified. The patient expressed understanding and agreement with the above treatment plan. The patient was made aware they should contact our office by phone for worsening of their current condition, the appearance of new symptoms, or with any questions or concerns. Compliance is encouraged with any medications and follow up testing that is ordered. It is a privilege to be allowed the opportunity to participate in? your urological care.? Again, if you have any questions or concerns If you have any questions or concerns please do not hesitate to contact me. The office is [phone]. This note is constructed using voice recognition software. While every effort has been made to ensure accuracy tree sapper errors may have been included. Yours sincerely, ZAID Gastelum Coding Level of Care Code New Pt Level 4 (96057) Diagnoses Elevated PSA R97.20 Prostatitis N41.9
== END 2025-03-24 09:50 | disposition home or self-care (01) ==
LOC: HO.HUSH 08:53
PROVIDERS: PCP Internal Medicine; Visit Provider Nurse Practitioner Family
DX: R97.20 Elevated prostate specific antigen [PSA] (principal); N41.9 Inflammatory disease of prostate, unspecified; Z13.9 Encounter for screening, unspecified
CPT/HCPCS: 99204

== ENCOUNTER → 2025-03-24 08:52 | Outpatient (BNVA) | payer OTHER, SELFPAY | PROVIDERS: PCP Internal Medicine; Visit Provider Nurse Practitioner Family | DX: R97.20 Elevated prostate specific antigen [PSA] (principal) | CPT/HCPCS: 81003 ==

== ENCOUNTER 2025-04-07 05:49 | Day surgery (SDC) | payer OTHER, SELFPAY ==
--- OUTSIDE RECORDS SUMMARY | 2025-03-22 14:59 | XMS_ITS | Patient Health Record ---
Author Organization [facility] Address [address] [place] [address] Care Team Providers Care Sec Accountant Name Role Phone IVORY ZACHARY Primary Care Provider He Hackett Unavailable [phone] Allergies No Known Allergies Results Component Value Reference Range Notes Complete Blood Count Auto Di ff Reviewed date:12/28/2024 01:03:31 PM Interpretation: Performing Lab:[facility], [address] [place] [id number] Notes/Report: White Blood Count 6.0 4.8-10.8 X10*3/uL [...] 0.0-0.2 /100WBC Neutrophils Absolute Auto 3.9 2.0-8.3 x10*3/u L Imm Gran Abs Auto 0.02 0.00-0.03 X10*3/uL Lymphocytes Absolute Auto 1.3 1.2-4.9 X10*3/u L Monocytes Absolute Auto 0.7 0.1-1.2 X10*3/uL Eosinophils Absolute Auto 0.1 0.0-0.4 X10*3/u L Basophils Absolute Auto 0.0 0.0-0.2 X10*3/uL NRBC Abs Auto 0.000 0.0-0.012 X10*3/uL Basic Metabolic Panel Reviewed date:12/28/2024 01:03:24 PM Interpretation: Performing Lab:[address] [id number] Notes/Report: Sodium 141 135-145 mmol/L Potassium 3.6 [...] g Reviewed date:12/28/2024 01:03:16 PM Interpretation: Performing Lab:[address] [id number] Notes/Report: Glucose Fasting 89 60-99 mg/dL Pathology Reviewed date:01/01/2025 01:59:03 PM Interpretation: Performing Lab:[address] [id number] Notes/Report: Reason For Referral No Information Medications Medication SIG (Take, Route, Frequency, Duration) Notes Start Date End Date Status Ferrous Sulfate 324 MG 1 tablet Orally T WO TIMES A DAY 03/03/2025 Active Omeprazole 20 MG 1 capsule 1/2 to 1 h our before morning meal Orally Once a day Active Social History Tobacco Use: Social History Observation Description Date Details (start date - stop date) Never Smoker NA - NA Tobacco Control (Standard) Question Answer Notes Tobacco use: Nonsmoker Additional Findings: Tobacco user Chews tobacco AUDIT-C (Standard) Question Answer Notes Did you have a drink contain ing alcohol in the past year? Yes How often did you have a dri nk containing alcohol in the past year? 2 to 4 times a month (2 points) How many drinks did you have on a typical day when you were drinking in the past year? 1 or 2 drinks (0 point) How often did you have six o r more drinks on one occasion in the past year? Never (0 point) Points 2 Interpretation Negative Section Notes: drinks one day a week on sat 2-3 drinks in the evening Problems Problem Type SNOMED Code ICD Code Onset Dates Problem Status W/U Status Risk Notes Problem Rectal bleeding (91347873) Rectal bleeding (K62.5) Active confirmed Problem Hemorrhoids (58500038) Hemorrhoids (K64.9) Active confirmed Problem Constipation (10033745) Constipation (K59.00) Active confirmed Problem Iron deficiency anemia (21714030) Iron deficiency anemia (D50.9) Active confirmed Problem Iron deficiency anemia due to chronic blood loss (229325809) Iron deficiency anemia due to chronic blood loss (D50.0) Active confirmed Problem Gastrointestinal hemorrhage (59421671) GI bleed (K92.2) Active confirmed Vital Signs Blood pressure diastolic 77 mm Hg 03/03/2025 72 Height 72 in 03/03/2025 72 Blood pressure systolic 111 mm Hg 03/03/2025 72 Weight 217 lbs 03/03/2025 72 BMI 29.43 kg/m2 03/03/2025 72 Encounters Encounter Location Date Provider Diagnosis [facility] [address] [place] [id number] 03/03/2025 He Myers Constipation K59.00 ; Iron deficiency anemia due to chronic blood loss D50.0 ; Rectal bleeding K62.5 and Hemorrhoids K64.9 [facility] [address] [place] [address] 12/28/2024 He Myers Iron deficiency anem ia D50.9 and GI bleed K92.2 Assessments Encounter Date Diagnosis (ICD Code) Assessment Notes Treatment Notes Treatment Clinical Notes Section Notes 03/03/2025 Constipation (ICD-10 - K59.00) Start 2 Metamucil fiber pills twice a day with a big glass of water on a regular basis. Overall, Jose appears very well despite the ongoing bleeding and anemia. We did review his hospitalization and the findings of his procedures. At this point I advised him that I would agree with having surgery for the hemorrhoids to see if that can hopefully stop the bleeding and give him a permanent correction for the anemia. In the meantime I shall start him on Metamucil fiber supplements twice a day on a regular basis with plenty of water. He has been using MiraLAX at home without any improvement and I think he could stop that at this time. I did advise him to continue his omeprazole and iron long-term however. Depending upon his clinical course in regard to the anemia we may need to consider a small bowel capsule study if the anemia persists despite the hemorrhoid surgery and resolution of the rectal bleeding. I will plan to see Jose in the Fall for a follow-up visit. I did advise him to certainly call me prior to that if he has any problems or questions I can be of assistance with. Jose was comfortable with this plan. Thank you again for allowing me to participate in Jose's care. I shall continue to keep you advised of his progress.. 03/03/2025 Iron deficiency anemia due to chronic blood loss (ICD-10 - D50.0) Continue the Iron twice a day longterm. Continue the omeprazole Overall, Jose appears very well despite the ongoing bleeding and anemia. We did review his hospitalization and the findings of his procedures. At this point I advised him that I would agree with having surgery for the hemorrhoids to see if that can hopefully stop the bleeding and give him a permanent correction for the anemia. In the meantime I shall start him on Metamucil fiber supplements twice a day on a regular basis with plenty of water. He has been using MiraLAX at home without any improvement and I think he could stop that at this time. I did advise him to continue his omeprazole and iron long-term however. Depending upon his clinical course in regard to the anemia we may need to consider a small bowel capsule study if the anemia persists despite the hemorrhoid surgery and resolution of the rectal bleeding. I will plan to see Jose in the Fall for a follow-up visit. I did advise him to certainly call me prior to that if he has any problems or questions I can be of assistance with. Jose was comfortable with this plan. Thank you again for allowing me to participate in Jose's care. I shall continue to keep you advised of his progress.. 12/28/2024 Iron deficiency anemia (ICD-10 - D50.9) Do all these labs the week of 01/10/2025. 12/28/2024 GI bleed (ICD-10 - K92.2) 03/03/2025 Rectal bleeding (ICD-10 - K62.5) Overall, Jose appears very well despite the ongoing bleeding and anemia. We did review his hospitalization and the findings of his procedures. At this point I advised him that I would agree with having surgery for the hemorrhoids to see if that can hopefully stop the bleeding and give him a permanent correction for the anemia. In the meantime I shall start him on Metamucil fiber supplements twice a day on a regular basis with plenty of water. He has been using MiraLAX at home without any improvement and I think he could stop that at this time. I did advise him to continue his omeprazole and iron long-term however. Depending upon his clinical course in regard to the anemia we may need to consider a small bowel capsule study if the anemia persists despite the hemorrhoid surgery and resolution of the rectal bleeding. I will plan to see Jose in the Fall for a follow-up visit. I did advise him to certainly call me prior to that if he has any problems or questions I can be of assistance with. Jose was comfortable with this plan. Thank you again for allowing me to participate in Jose's care. I shall continue to keep you advised of his progress.. 03/03/2025 Hemorrhoids (ICD-10 - K64.9) Follow up with Dr. Robin for the hemorrhoids Overall, Jose appears very well despite the ongoing bleeding and anemia. We did review his hospitalization and the findings of his procedures. At this point I advised him that I would agree with having surgery for the hemorrhoids to see if that can hopefully stop the bleeding and give him a permanent correction for the anemia. In the meantime I shall start him on Metamucil fiber supplements twice a day on a regular basis with plenty of water. He has been using MiraLAX at home without any improvement and I think he could stop that at this time. I did advise him to continue his omeprazole and iron long-term however. Depending upon his clinical course in regard to the anemia we may need to consider a small bowel capsule study if the anemia persists despite the hemorrhoid surgery and resolution of the rectal bleeding. I will plan to see Jose in the Fall for a follow-up visit. I did advise him to certainly call me prior to that if he has any problems or questions I can be of assistance with. Jose was comfortable with this plan. Thank you again for allowing me to participate in Jose's care. I shall continue to keep you advised of his progress.. Plan Of Treatment Pending Test Test Name Order Date IRON + IBC (FE) 12/28/2024 CBC w DIFF 12/28/2024 Ferritin 12/28/2024 Vitamin B12 and Folate 12/28/2024 Next Appt Details Provider Name:He Bach Lucia , 07/28/2025 09:00:00 AM, [address] [place] [address], [address], [place], [address], Insurance Providers Payer Name Payer Address Payer Phone Subscriber Number Group Number Insured Name Patient Relationship to Insured Coverage Start Date Coverage End Date [facility] [address] [place] [phone] [id number] JOSE ELDRIDGE Self - patient is the insured 4 Medical (General) History Medical History History ICD Code Iron deficiency anemiafrom p resumed hemorrhoidal bleeding. He was hospitalized in November 2024 with a hemoglobin of 5.7 and required transfusions. His colonoscopy revealed only hemorrhoids at that time. His upper endoscopy revealed a hiatal hernia and reflux with biopsies that were negative for Emanuel's esophagus and negative for celiac disease. He also had a negative colonoscopy prior to his hospitalization at [facility] that was nonrevealing. Denies AK,DM,CVA,Lung disease,renal dise ase Surgical History Surgery Date(Month/Year) Inguinal hernia
[2025-04-04 14:20] VITALS: BMI 29.7
--- NOTE | 2025-04-06 09:31 | HO.ANESPROP2 ---
Documented by User: Kim Maradiaga NP 04/06/25 09:32 HPI - Anesthesia Eval Consult details Narrative: 54yo M for EUA, Hemorrhoidectomy PMFSH Active Problems Active Problems: All Active Problems Prostatitis (Acute) Subclinical hypothyroidism (Acute) Elevated PSA (Acute) Spondylosis (Acute) Lesion of liver (Acute) Diverticular disease of colon (Acute) Establishing care with new doctor, encounter for (Acute) Benign skin lesion (Acute) Kidney lesion (Acute) Chewing tobacco dependence (Acute) Pulmonary nodules (Acute) Severe anemia (Acute) Bleeding hemorrhoids (Acute) Symptomatic anemia (Acute) Constipation (Acute) External hemorrhoids (Acute) Rectal bleed (Acute) Irregular bowel habits (Acute) Otitis externa (Acute) Past Medical History Medical History Subclinical hypothyroidism Elevated PSA Spondylosis Lesion of liver Diverticular disease of colon Establishing care with new doctor, encounter for Benign skin lesion Kidney lesion Chewing tobacco dependence Pulmonary nodules Severe anemia Bleeding hemorrhoids Family History Family History Father Lung cancer Mother No problems noted. Family history of problems with anesthesia: No Surgical History Surgical History Hx of colonoscopy (12/28/24) Hx of esophagogastroduodenoscopy (12/28/24) History of Problems with Anesthesia: No Social History Social History Household Members: None Housing: House Do you presently have visiting nurse or other home services: No Alcohol intake: current Alcohol intake frequency: a few times a week Patient Tobacco Use Status: Current everyday Tobacco user Tobacco use type: Smokeless Tobacco e-Cigarette/Vaping Use: Never Used Second Hand Smoke Exposure: No Use of substances other than those prescribed or required for medical reasons: No Substance Use Type: Marijuana Advance Directives: No Advance Directives Information Provided: Yes Advance Directives Date on File: 12/27/24 service: Yes Current occupational status: employed Cognitive needs: No Hearing needs: No Vision needs: Yes (rx glasses) Meds Allergies Allergy/AdvReac Type Severity Reaction Status Date / Time No Known Allergies Allergy Verified 03/24/25 09:54 Home Medications ?Medication ?Instructions ?Recorded ?Confirmed ?Last Taken ?Type finasteride 1 mg tablet (Propecia) 1 mg PO DAILY 12/24/24 03/24/25 Unknown History Exam Height,Weight and Vital Signs: Height 6 ft Weight 99.337 kg Pertinent Lab Results Pertinent Lab Results: Laboratory Tests 03/02/25 07:52 WBC 4.9 Hgb 9.0 L Hct 30.8 L Plt Count 250 Sodium 144 Potassium 4.4 D Chloride 109 H Carbon Dioxide 28 BUN 19 H Creatinine 1.03 Narrative Narrative: EKG 11/2024 Vent. Rate : 76 BPM Atrial Rate : 76 BPM P-R Int : 146 ms QRS Dur : 82 ms QT Int : 390 ms P-R-T Axes : 51 -1 8 degrees QTcB Int : 438 ms Normal sinus rhythm Normal ECG No previous ECGs available Assessment and Plan Assessment Anesthesia Assessment: Chart Reviewed Final Anesthetic Review Family History of Problems with Anesthesia: No History of Problems with Anesthesia: No Documented by User: Simin Power MD 04/07/25 08:18 [facility] Past Medical History Medical History Subclinical hypothyroidism Elevated PSA Spondylosis Lesion of liver Diverticular disease of colon Establishing care with new doctor, encounter for Benign skin lesion Kidney lesion Chewing tobacco dependence Pulmonary nodules Severe anemia Bleeding hemorrhoids Family History Family History Father Lung cancer Mother No problems noted. Surgical History Surgical History Hx of colonoscopy (12/28/24) Hx of esophagogastroduodenoscopy (12/28/24) Social History Social History Household Members: None Housing: House Do you presently have visiting nurse or other home services: No Alcohol intake: current Alcohol intake frequency: a few times a week Patient Tobacco Use Status: Current everyday Tobacco user Tobacco use type: Smokeless Tobacco e-Cigarette/Vaping Use: Never Used Second Hand Smoke Exposure: No Use of substances other than those prescribed or required for medical reasons: No Substance Use Type: Marijuana Advance Directives: No Advance Directives Information Provided: Yes Advance Directives Date on File: 12/27/24 service: Yes Current occupational status: employed Cognitive needs: No Hearing needs: No Vision needs: Yes (rx glasses) Meds Allergies Allergy/AdvReac Type Severity Reaction Status Date / Time No Known Allergies Allergy Verified 03/24/25 09:54 Home Medications ?Medication ?Instructions ?Recorded ?Confirmed ?Last Taken ?Type finasteride 1 mg tablet (Propecia) 1 mg PO DAILY 12/24/24 03/24/25 Unknown History Exam Airway Heart: rrr Lungs: cta Assessment and Plan Assessment Anesthesia Assessment: Anesthesia Plan Discussed Final Anesthetic Review NPO: Yes ASA Class: II Final Preanesthetic Review: No Changes in Pt Med Stat, Meds/Allgs Chart Reviewed, Consent Obtained/Reviewed and Anes Risks/Benef Reviewed Patient Risk: Low Procedure Risk: Low Anesthetic Plan Anesthetic Plan: GA and Agree w/ Assess. and Plan Disposition: Standard PACU
[2025-04-07 06:05] VITALS: BMI 28.8
[2025-04-07 06:22] VITALS: BP 109/64; PULSE 56; RESP 16; TEMP 36.3; O2SAT 96
[2025-04-07] MEDS: Lactated Ringers 1,000 ML 100 ML IVCONT (06:24)
--- NOTE | 2025-04-07 07:32 | MHC.SHP ---
Pre-Procedural Eval Section A - 24 Hr Update-Section A only Date of Service: 04/07/25 Section B - Complete if H&P > 30 days Chief Complaint: Unspecified hemorrhoids Details of Present Illness: Has had a long history of bleeding hemorrhoids Relevant Family History (Specify if Yes): No Relevant Social History: Tobacco Use Present Medications: see Short Stay Collaborative assessment Medical History: Significant History (Spondylosis, anemia, tobacco chewing) Allergies: Allergies Allergy/AdvReac Type Severity Reaction Status Date / Time No Known Allergies Allergy Verified 03/24/25 09:54 Review of Systems Sugical H&P ROS: Negative: Constitution and Cardiovascular Exam Surgical H&P Exam: Normal: Heart, Normal: Lungs and Normal: Abdomen Exam Comment: Hemorrhoidal column Plan Diagnosis/Plan: Unchanged I have reviewed the history and physical and performed a pertinent physical examination on my patient. No changes have occurred unless specified. Time Spent With Patient Time: Total time managing care of this patient today ____ minutes.
[2025-04-07] MEDS: cefoTEtan disodium 2 GM VIAL IVPUSH (07:45)
--- NOTE | 2025-04-07 08:19 | P.OP_ITS ---
Operative Note Operative Note Date of Service: 04/07/25 Narrative: Preop diagnosis: Bleeding hemorrhoids Postop diagnosis: Bleeding hemorrhoids, internal external Procedure: Exam under anesthesia hemorrhoidectomy x2 columns, rubber banding of 1 internal hemorrhoidal column Surgeon: Darryn Robin MD Onsite Case Manager: Alyssia Barker, medical student The patient is a 54-year-old male with a long history of bleeding hemorrhoids. He wanted to proceed with hemorrhoidectomy. He understood the technique of the planned procedure as well as the risks, benefits, and alternatives. He was brought to the operating room. He was placed in prone chalino-knife position under general anesthesia via endotracheal tube. The buttocks were retracted with wide tape laterally. The perianal area was prepped and draped in the usual sterile fashion. A surgical time-out was done. The patient received Cefotan preoperatively I examination of the anal orifice revealed bulky internal hemorrhoids on both the left and right side. I inserted the Richmond Oliver retractor. I examined the anal canal circumferentially. These large hemorrhoidal columns were a mix of internal external on both the left and right side. There were no other lesions. There was no fissure. There were no active bleeding There was 1 prominent internal hemorrhoidal column as well on the right side I applied a Khan grasper in the large hemorrhoidal column of the left. I made a uqivnc-cr-tzmnm stitch with a chromic 3-0 at the pedicle past the dentate line. I made an incision around this hemorrhoidal column to the perianal skin with a blade 15. I excised this hemorrhoidal column above the plane of the sphincters along this incision with scissors. I closed the incision with a running chromic 3-0 stitch. Additional rate sutures were placed for hemostasis. There was note of a lot of bleeding from the excised area in view of the large column. I did the same procedure on the large hemorrhoidal column on the right side. Again this was a combination of an internal external hemorrhoid. I applied a Khan grasper to retract this. I made a pleshz-jr-xgmwe stitch at the pedicle. He had an incision around this with a blade 15 to the perianal skin. I excised this hemorrhoidal column along this incision above the plane of the sphincters with scissors. I closed this incision with a running chromic 3-0 stitch. Additional hemostatic vvjuna-jb-uyliv sutures were placed oozing areas There was a prominent hemorrhoidal column which was internal on the right. I grasped this with a hemorrhoidal grasper. I used the applicator to position a rubber band at the base. This was applied I observed for hemostasis. Once hemostasis was confirmed so I infiltrated the perianal area with Marcaine 0.5% for postop analgesia generously. Procedure was then completed The patient tolerated procedure well. There were no immediate complications. Initial and final counts of sponges and instruments were correct. Blood loss about 100 cc The patient is extubated without difficulty and transferred to the recovery room with stable vital signs.
[2025-04-07 08:28] VITALS: BP 125/80; PULSE 89; RESP 16; TEMP 36.3; O2SAT 98
[2025-04-07 08:33] VITALS: BP 126/53; PULSE 66; RESP 11; O2SAT 98
[2025-04-07 08:38] VITALS: BP 129/82; PULSE 66; RESP 11; O2SAT 99
[2025-04-07 08:43] VITALS: BP 126/80; PULSE 71; RESP 13; O2SAT 98
[2025-04-07 08:58] VITALS: BP 132/87; PULSE 70; RESP 16; TEMP 36.4; O2SAT 100
== END 2025-04-07 09:28 | disposition home or self-care (01) ==
PROVIDERS: PCP Internal Medicine; Visit Provider Surgery
PROC: (CPT 46260; principal; 2025-04-07 07:30)
DX: K64.8 Other hemorrhoids (principal); K64.4 Residual hemorrhoidal skin tags; K59.09 Other constipation; D64.9 Anemia, unspecified; Z86.0101 Personal history of adenomatous and serrated colon polyps; K57.30 Diverticulosis of large intestine without perforation or abscess without bleeding; R97.20 Elevated prostate specific antigen [PSA]; K76.9 Liver disease, unspecified; N28.9 Disorder of kidney and ureter, unspecified; E03.8 Other specified hypothyroidism; R91.8 Other nonspecific abnormal finding of lung field; M47.9 Spondylosis, unspecified; Z79.899 Other long term (current) drug therapy; F17.220 Nicotine dependence, chewing tobacco, uncomplicated
CPT/HCPCS: 46260; 88304; J0131; J1100; J1885; J2003; J2405; J2704; J2795; J3010

== ENCOUNTER → 2025-04-07 05:49 | Outpatient (BNV) | payer OTHER, SELFPAY | PROVIDERS: PCP Internal Medicine; Visit Provider Surgery | DX: K64.8 Other hemorrhoids (principal) | CPT/HCPCS: 46260 ==

== ENCOUNTER 2025-04-18 15:18 | Outpatient (AMB) | payer OTHER, SELFPAY ==
--- NOTE | 2025-04-18 15:29 | MHC.OFFVIS ---
Vital Signs 04/18/25 15:30 Weight 212 lb BP 116/72 Blood Pressure Location Rt brachial Position Sitting Pulse 71 Intake Visit Reasons: s/p EUA hemorrhoidectomy Intake Note: Patient here s/p hemorrhoidectomy x2 columns, rubber banding of 1 internal hemorrhoidal column. Patient c/o: takes 5 hours to have a BM. No longer taking rx pain meds. 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 He tolerated procedure well He seems to be comfortable with regards to his pain level. He is able to sit down well without any complaints. He denies any significant bleeding He does state that he still has very irregular bowel habits and feels that he is still constipated. [facility] Medical History Subclinical hypothyroidism Elevated PSA Spondylosis Lesion of liver Diverticular disease of colon Establishing care with new doctor, encounter for Benign skin lesion Kidney lesion Chewing tobacco dependence Pulmonary nodules Severe anemia Bleeding hemorrhoids Surgical History H/O hemorrhoidectomy (04/07/25) Hx of colonoscopy (12/28/24) Hx of esophagogastroduodenoscopy (12/28/24) Family History Father Lung cancer Mother No problems noted. Social History Household Members: None Housing: House Do you presently have visiting nurse or other home services: No Alcohol intake: current Alcohol intake frequency: a few times a week Patient Tobacco Use Status: Current everyday Tobacco user Tobacco use type: Smokeless Tobacco e-Cigarette/Vaping Use: Never Used Second Hand Smoke Exposure: No Substance Use Type: Marijuana Advance Directives Date on File: 12/27/24 service: Yes Current occupational status: employed Cognitive needs: No Hearing needs: No Vision needs: Yes (rx glasses) Review of Systems Const Denies chills and Denies fever(s) Physical Exam Vital Signs: Last Vital Signs Pulse 71 04/18/25 15:30 BP 116/72 04/18/25 15:30 Const General: comfortable and no acute distress GI Other: Rectal exam shows the hemorrhoidectomy sites to be healing well, without signs of infection. There is still residual edema on the surgical sites. Assessment & Plan Assessment & Plan (1) Bleeding hemorrhoids: Code(s): K64.9 - Unspecified hemorrhoids Category: Medical Plan: Status post hemorrhoidectomy and rubber band ligation. He did have large hemorrhoidal columns. His incisions are actually healing very well. He does have some residual edema He admits to a chronic constipation and is seeing Dr. Myers for this. I explained to him that control of his constipation will be essential to avoiding hemorrhoid issues down the line. He can follow up with me on a p.r.n. basis. Coding Level of Care Code Global (74622) Diagnoses Bleeding hemorrhoids K64.9
[2025-04-18 15:30] VITALS: BP 116/72; PULSE 71
--- OUTSIDE RECORDS SUMMARY | 2025-04-18 15:54 | XMS_ITS | Patient Health Record ---
Author Organization [facility] Address [address] [place] [address] Care Team Providers Care Planer Chain Offbearer Name Role Phone IVORY ZACHARY Primary Care Provider He Hackett Unavailable [phone] Allergies No Known Allergies Results Component Value Reference Range Notes Complete Blood Count Auto Di ff Reviewed date:12/28/2024 01:03:31 PM Interpretation: Performing Lab:[facility], [address] [place] [phone] Notes/Report: White Blood Count 6.0 4.8-10.8 X10*3/uL [...] Panel Reviewed date:12/28/2024 01:03:24 PM Interpretation: Performing Lab:[address] [id number] Notes/Report: Sodium 141 135-145 mmol/L Potassium 3.6 [...] g Reviewed date:12/28/2024 01:03:16 PM Interpretation: Performing Lab:[address] [id number] Notes/Report: Glucose Fasting 89 60-99 mg/dL Pathology Reviewed date:01/01/2025 01:59:03 PM Interpretation: Performing Lab:[address] [id number] Notes/Report: Reason For Referral No Information Medications [...] W/U Status Risk Notes Problem Rectal bleeding (34686574) Rectal bleeding (K62.5) Active confirmed Problem Hemorrhoids (48877458) Hemorrhoids (K64.9) Active confirmed Problem Constipation (45808134) Constipation (K59.00) Active confirmed Problem Iron deficiency anemia (75513589) Iron deficiency anemia (D50.9) Active confirmed Problem Iron deficiency anemia due to chronic blood loss (930562499) Iron deficiency anemia due to chronic blood loss (D50.0) Active confirmed Problem Gastrointestinal hemorrhage (66307655) GI bleed (K92.2) Active confirmed Vital Signs Blood pressure diastolic 77 mm Hg 03/03/2025 72 Height 72 in 03/03/2025 72 Blood pressure systolic 111 mm Hg 03/03/2025 72 Weight 217 lbs 03/03/2025 72 BMI 29.43 kg/m2 03/03/2025 72 Encounters Encounter Location Date Provider Diagnosis [facility] [address] [place] [phone] 03/03/2025 He Myers Constipation K59.00 ; Iron deficiency anemia due to chronic blood loss D50.0 ; Rectal bleeding K62.5 and Hemorrhoids K64.9 [facility] [address] [place] [address] 12/28/2024 He Myers Iron deficiency anem ia [...] D50.0) Continue the Iron twice a day custodial. Continue the omeprazole Overall, Jose appears very [...] Name:He Bach Lucia , 07/28/2025 09:00:00 AM, [address] [place] [address], [address], [place], [address], Insurance Providers Payer Name Payer Address Payer Phone Subscriber Number Group Number Insured Name Patient Relationship to Insured Coverage Start Date Coverage End Date [facility] [address] [place] [address] [id number] JOSE ELDRIDGE Self - patient is the [...] negative colonoscopy prior to his hospitalization at [facility] that was nonrevealing. Denies RI,DM,CVA,Lung disease,renal dise ase Surgical History Surgery Date(Month/Year) Inguinal hernia
--- OUTSIDE RECORDS SUMMARY | 2025-04-18 15:54 | XMS_ITS | Clinical Summary ---
Author Organization [facility] Address [address] [place] [address] Care Team Providers Care Melting Supervisor Name Role Phone Unavailable Primary Care Provider [...] Panel) 07/25/2024 Colorectal Cancer Screening: Colonoscopy 07/25/2024 HIV Screening 07/25/2024 Hepatitis C Screening 07/25/2024 Social Influencers of Health Screening 07/25/2024 Depression Screening 09/29/2024 Influenza Vaccine (#1) 2025 HIB Vaccines Aged Out No longer [...]
== END 2025-04-18 15:48 | disposition home or self-care (01) ==
LOC: HO.HGS 15:21
PROVIDERS: Visit Provider Surgery
DX: K64.9 Unspecified hemorrhoids (principal)
CPT/HCPCS: 99024

== ENCOUNTER 2025-04-22 14:15 | Outpatient (RCR) | payer OTHER, SELFPAY ==
[2025-04-13 14:31] VITALS: BP 103/65; PULSE 68; RESP 16; TEMP 36.7; O2SAT 96
[2025-04-22 14:02] VITALS: BP 130/78; PULSE 69; RESP 16; TEMP 36.2; O2SAT 97
== END 2025-04-22 15:11 | disposition home or self-care (01) ==
LOC: HO.INF 14:15
PROVIDERS: Visit Provider Internal Medicine
DX: D64.9 Anemia, unspecified (principal)
CPT/HCPCS: 96365; J1439

== ENCOUNTER 2025-04-29 14:21 | Outpatient (AMB) | payer OTHER, SELFPAY ==
[2025-04-29 14:23] VITALS: BP 100/60; PULSE 65; O2SAT 97; BMI 28.6
--- NOTE | 2025-04-29 14:23 | MHC.OFFVIS ---
Vital Signs 04/29/25 14:23 Height 6 ft Weight 210 lb 8.663 oz BMI 28.6 BP 100/60 Blood Pressure Location Lt brachial Position Sitting Pulse 65 Pulse Source Pulse Oximeter Pulse Oximetry (%) 97 Oxygen Delivery Method Room Air Intake Visit Reasons: Abnormal CT Field Talent Qualification Specialist Required: No Accompanied by: Self / Same As Patient Allergies No Known Allergies Allergy (Verified 04/29/25 14:27) HPI Comments Details: The patient is here for pulmonary evaluation. The patient is a 54-year-old gentleman who was in his usual state health until back in November when he started developing worsening shortness of breath. Went to the ED were found to be having symptomatic anemia as he was having a GI bleed. Ultimately related to hemorrhoids. That was subsequently surgically corrected. He seems to be doing better. No significant cough or shortness of breath. During that initial evaluation in the ED he did have a CT scan of the chest demonstrating some subcentimeter pulmonary nodules. I did personally review the CAT scan. It was noted that he had 3 pulmonary nodules adjacent to the minor fissure likely little lymph nodes. Benign in appearance subcentimeter in size. The patient is a nonsmoker. Will go ahead and plan to repeat a CAT scan in November of 2025. Otherwise patient is without any other complaints. Will follow-up then. If any issues arise he will call for an earlier assessment. [facility] Medical History Subclinical hypothyroidism Elevated PSA Spondylosis Lesion of liver Diverticular disease of colon Establishing care with new doctor, encounter for Benign skin lesion Kidney lesion Chewing tobacco dependence Pulmonary nodules Severe anemia Bleeding hemorrhoids Surgical History H/O hemorrhoidectomy (04/07/25) Hx of colonoscopy (12/28/24) Hx of esophagogastroduodenoscopy (12/28/24) Family History Father Lung cancer Mother No problems noted. Social History Household Members: None Housing: House Do you presently have visiting nurse or other home services: No Alcohol intake: current Alcohol intake frequency: a few times a week Patient Tobacco Use Status: Current everyday Tobacco user Tobacco use type: Smokeless Tobacco e-Cigarette/Vaping Use: Never Used Second Hand Smoke Exposure: No Substance Use Type: Marijuana Advance Directives Date on File: 12/27/24 service: Yes Current occupational status: employed Cognitive needs: No Hearing needs: No Vision needs: Yes (rx glasses) Review of Systems Const Denies chills and Denies fever(s) Card Denies chest pain, Denies dyspnea and Denies dyspnea on exertion Resp Denies cough, Denies dyspnea and Denies dyspnea on exertion GI Denies change in bowel habits Denies hematuria and Denies difficulty urinating Musc Denies back pain and Denies limited range of motion Neuro Denies focal weakness and Denies convulsions Psych Denies depression and Denies mood swings Physical Exam Vital Signs: Last Vital Signs Pulse 65 04/29/25 14:23 BP 100/60 04/29/25 14:23 Pulse Ox 97 04/29/25 14:23 Oxygen Delivery Method Room Air 04/29/25 14:23 BMI result Body Mass Index 28.6 Const General: comfortable and no acute distress Orientation/consciousness: patient oriented x3 Neck Neck: Yes no lymphadenopathy Resp Auscultation: clear to auscultation bilaterally Cardio Rhythm: regular rhythm GI Palpation (GI): Soft to palpation Neuro General: patient oriented x3 Assessment & Plan Assessment & Plan (1) Pulmonary nodules: Code(s): R91.8 - Other nonspecific abnormal finding of lung field Category: Medical Plan CT chest 12/2025 F/U Spring 2025 Orders: Orders CT chest wo IV con 12/28/25 R91.8 - Other nonspecific abnormal finding of lung field Coding Level of Care Code New Pt Level 4 (28808) Diagnoses Pulmonary nodules R91.8 Time Spent (min) 35
== END 2025-04-29 14:41 | disposition home or self-care (01) ==
LOC: HO.HPS 14:21
PROVIDERS: Visit Provider Hospitalist
DX: R91.8 Other nonspecific abnormal finding of lung field (principal)
CPT/HCPCS: 99204

== ENCOUNTER 2025-05-13 07:15 | Outpatient (REF) | payer OTHER, SELFPAY ==
[2025-05-13 08:23] LABS: Cholesterol 189 mg/dL (<200); HDL Cholesterol 45 mg/dL (>40); Triglycerides 82 mg/dL (<150)
[2025-05-13 08:38] LABS: PSA,Total (Free>4and<10) 17.88 ng/mL (0.00-4.00)
== END 2025-05-13 07:16 | disposition home or self-care (01) ==
LOC: HO.LAB 07:15
PROVIDERS: Nurse Practitioner Family; Physician Assistant Medical; Visit Provider Internal Medicine
DX: Z00.00 Encounter for general adult medical examination without abnormal findings (principal); R97.20 Elevated prostate specific antigen [PSA]; D64.9 Anemia, unspecified
CPT/HCPCS: 36415; 80061; 84153; 84443

== ENCOUNTER 2025-05-16 13:53 | Outpatient (REF) | payer OTHER, SELFPAY ==
--- NOTE | ~2025-05-16 | US_ITS ---
EXAMINATION: US RETROPERITONEAL COMPLETE (RENAL) CLINICAL INFORMATION: Elevated PSA. Prostatitis.. COMPARISON: Correlated to CT dated December 24, 2024. TECHNIQUE: Real-time imaging of the kidneys and bladder. FINDINGS: RIGHT KIDNEY: 11 x 5 x 7 cm (SAG x AP x TRV). Normal echotexture normal renal cortical thickness. No hydronephrosis. No solid or cystic lesion detected. LEFT KIDNEY: 10 x 6 x 6 cm (SAG x AP x TRV). Normal echotexture. Normal renal cortical thickness. No hydronephrosis. No gross solid or cystic lesion detected. BLADDER: Fluid-filled Bilateral ureteral jets are demonstrated. Prevoid bladder volume is 469 mL. Postvoid bladder volume is 17 mL. Prostate gland measures 3.1 x 3.3 x 3.9 cm. Volume: 21 cc. US/US retroperitoneal comp IMPRESSION: No hydronephrosis. 17 cc of residual urine in a post void image. Normal-sized prostate gland with a volume: 21 cc.. Electronically signed by: Ritchie Hernandez MD 05/16/2025 02:35 PM EDT
--- OUTSIDE RECORDS SUMMARY | 2025-05-16 14:43 | XMS_ITS | Patient Health Record ---
Author Organization [facility] Address [address] [place] [address] Care Team Providers Care Powerbuilder Name Role Phone ZACHARY DODSON Primary Care Provider He Hackett Unavailable [phone] Allergies No Known Allergies Results Component Value Reference Range Notes Complete Blood Count Auto Di ff Reviewed date:12/28/2024 01:03:31 PM Interpretation: Performing Lab:[facility], [address] [place] [phone] Notes/Report: White Blood Count 6.0 4.8-10.8 X10*3/uL [...] Panel Reviewed date:12/28/2024 01:03:24 PM Interpretation: Performing Lab:[address] [phone] Notes/Report: Sodium 141 135-145 mmol/L Potassium 3.6 [...] g Reviewed date:12/28/2024 01:03:16 PM Interpretation: Performing Lab:[address] [phone] Notes/Report: Glucose Fasting 89 60-99 mg/dL Pathology Reviewed date:01/01/2025 01:59:03 PM Interpretation: Performing Lab:[address] [phone] Notes/Report: Reason For Referral No Information Medications [...] W/U Status Risk Notes Problem Rectal bleeding (71436282) Rectal bleeding (K62.5) Active confirmed Problem Hemorrhoids (91449668) Hemorrhoids (K64.9) Active confirmed Problem Constipation (09141958) Constipation (K59.00) Active confirmed Problem Iron deficiency anemia (75770370) Iron deficiency anemia (D50.9) Active confirmed Problem Iron deficiency anemia due to chronic blood loss (291343073) Iron deficiency anemia due to chronic blood loss (D50.0) Active confirmed Problem Gastrointestinal hemorrhage (65864782) GI bleed (K92.2) Active confirmed Vital Signs Blood pressure diastolic 77 mm Hg 03/03/2025 72 Height 72 in 03/03/2025 72 Blood pressure systolic 111 mm Hg 03/03/2025 72 Weight 217 lbs 03/03/2025 72 BMI 29.43 kg/m2 03/03/2025 72 Encounters Encounter Location Date Provider Diagnosis [facility] [address] [place] [address] 03/03/2025 He Myers Constipation K59.00 ; Iron deficiency anemia due to chronic blood loss D50.0 ; Rectal bleeding K62.5 and Hemorrhoids K64.9 [facility] [address] [place] [address] 12/28/2024 He Myers Iron deficiency anem ia [...] Name:He Bach Lucia , 07/28/2025 09:00:00 AM, [address] [place] [address], [address], [place], [address], Insurance Providers Payer Name Payer Address Payer Phone Subscriber Number Group Number Insured Name Patient Relationship to Insured Coverage Start Date Coverage End Date [facility] [address] [place] [phone] [id number] JOSE ELDRIDGE Self - patient is the [...] negative colonoscopy prior to his hospitalization at [facility] that was nonrevealing. Denies DE,DM,CVA,Lung disease,renal dise ase Surgical History Surgery Date(Month/Year) Inguinal hernia
--- OUTSIDE RECORDS SUMMARY | 2025-05-16 14:43 | XMS_ITS | Clinical Summary ---
Author Organization [facility] Address [address] [place] [address] Care Team Providers Care Tack Maker Name Role Phone Unavailable Primary Care Provider [...]
== END 2025-05-16 13:54 | disposition home or self-care (01) ==
LOC: HO.HMGCX 13:53
PROVIDERS: PCP Internal Medicine; Visit Provider Nurse Practitioner Family
DX: R97.20 Elevated prostate specific antigen [PSA] (principal); N41.9 Inflammatory disease of prostate, unspecified
CPT/HCPCS: 76770

== ENCOUNTER → 2025-05-16 14:03 | Outpatient (BNV) | payer OTHER, SELFPAY | PROVIDERS: PCP Internal Medicine; Visit Provider Radiology Diagnostic Radiology | DX: R97.20 Elevated prostate specific antigen [PSA] (principal); N41.9 Inflammatory disease of prostate, unspecified | CPT/HCPCS: 76770 ==

== ENCOUNTER 2025-05-26 15:05 | Outpatient (AMB) | payer OTHER, SELFPAY ==
--- NOTE | 2025-05-26 15:12 | A.OFFVIS_ITS ---
Intake Visit Reasons: 2 months/ US/ PSA Intake Note: Patient presents for follow up visit Urology Medications: Finasteride Blood Thinner: none Imaging done 05/16/25: Labs done :PSA 17.88 Slag Expander Required: No Industrial Electrical Technician: Industrial Electrical Technician offered & declined Accompanied by: Self / Same As Patient Allergies No Known Allergies Allergy (Verified 05/26/25 15:55) Medication List - Last Reconciled 05/26/25 by ZAID Gastelum docusate sodium (Colace) 100 mg PO BID ferrous sulfate 324 mg PO BIDWM finasteride (Propecia) 1 mg PO DAILY ibuprofen 600 mg PO Q6H PRN levofloxacin 500 mg PO DAILY 3 days levothyroxine 25 mcg PO DAILY omeprazole 20 mg PO DAILY@0630 polyethylene glycol 3350 (Miralax) 17 grams PO BID HPI Comments Details: Jose is a 54-year-old male patient of Dr. Perales. He has a past medical history of subclinical hypothyroidism, elevated PSA, lesion of the liver, renal cyst, chewing tobacco dependence, pulmonary nodules, severe anemia, and hemorrhoids. He presents to the office today for follow-up. Of note, patient was seen approximately 2 months ago as a new patient for an elevated PSA at which time JE noted no suspicious nodules palpated however left side of the prostate noted to be boggy at which time we discussed potential for prostatitis and Bactrim was prescribed for 2 weeks and recommendations were made for redraw of PSA 4-6 weeks status post antibiotic therapy. A retroperitoneal ultrasound was also ordered for further assessment evaluation. These results were reviewed and communicated with the patient today. 05/23 bilateral kidneys with no calculi, hydronephrosis, and or cystic lesions. Prostate measures approximately 21 mL recent PSA results were reviewed with the patient today. As noted and trended below. We did discussed increase in PSA. We did discussed further treatment options and risks and benefits of these treatment options. He discusses his ongoing issues with his bowels and follows up with Dr. Myers however is requesting referral for a 2nd opinion. He otherwise denies any bothersome urinary issues. When asked he denies any known family history of prostate cancer. When asked he does report a longstanding history of urinary frequency and nocturia however relates this to his increased consumption of water. We did discussed at length potential causes of elevated PSA as well as further treatment options and risks and benefits of these treatment options. He denies incontinence, hematuria, dysuria, foul smelling urine, changes to urinary stream, flank pain, fever, and or chills. He is happy with his current voiding parameters. He discusses his recent hemorrhoidectomy with Dr. Robin. He otherwise offers no other issues or concerns at this time. PSAs: 03/23 16.4, 05/23 17.9 PFSH Medical History Subclinical hypothyroidism Elevated PSA Spondylosis Lesion of liver Diverticular disease of colon Establishing care with new doctor, encounter for Benign skin lesion Kidney lesion Chewing tobacco dependence Pulmonary nodules Severe anemia Bleeding hemorrhoids Surgical History H/O hemorrhoidectomy (04/07/25) Hx of colonoscopy (12/28/24) Hx of esophagogastroduodenoscopy (12/28/24) Family History Father Lung cancer Mother No problems noted. Social History Household Members: None Housing: House Do you presently have visiting nurse or other home services: No Alcohol intake: current Alcohol intake frequency: a few times a week Patient Tobacco Use Status: Current everyday Tobacco user Tobacco use type: Smokeless Tobacco e-Cigarette/Vaping Use: Never Used Second Hand Smoke Exposure: No Substance Use Type: Marijuana Advance Directives Date on File: 12/27/24 service: Yes Current occupational status: employed Cognitive needs: No Hearing needs: No Vision needs: Yes (rx glasses) Review of Systems Const All systems reviewed & are unremarkable except as noted in HPI and below Physical Exam Const General: cooperative, healthy appearing, comfortable, no acute distress, well developed, alert and awake Orientation/consciousness: patient oriented x3 Limitations: no limitations HEENT Head: Yes normal to inspection, Yes normocephalic and Yes atraumatic Ears: hearing grossly normal bilaterally Eyes General: appearance normal, both eyes and all related structures Neck Neck: Yes normal visual inspection and Yes trachea midline Chest Chest palpation & inspection: normal inspection of the chest Resp Effort & Inspection: normal respiratory effort and able to speak in complete sentences Cardio Rate: regular rate GI Inspection: Yes normal to inspection General: Yes no CVA tenderness Back/Spine/Pelvis Back: no CVA tenderness Skin General skin exam: no rashes or lesions noted Neuro General: patient oriented x3 Extrem General: Yes normal to inspection Psych Appearance: grossly normal and well kempt Mental Status: mental status grossly normal Speech and movement: Normal speech and movement present and Clear speech present Affect: normal affect Attitude: cooperative Thought process: Normal thought process present Thought content: Normal thought content present Insight: Fair insight present (Psych) Judgement: Fair judgement present (Psych) Results Reviewed Results Reviewed: Date of Service: 05/16/25 Procedure(s): US retroperitoneal comp FINDINGS: RIGHT KIDNEY: 11 x 5 x 7 cm (SAG x AP x TRV). Normal echotexture normal renal cortical thickness. No hydronephrosis. No solid or cystic lesion detected. LEFT KIDNEY: 10 x 6 x 6 cm (SAG x AP x TRV). Normal echotexture. Normal renal cortical thickness. No hydronephrosis. No gross solid or cystic lesion detected. BLADDER: Fluid-filled Bilateral ureteral jets are demonstrated. Prevoid bladder volume is 469 mL. Postvoid bladder volume is 17 mL. Prostate gland measures 3.1 x 3.3 x 3.9 cm. Volume: 21 cc. IMPRESSION: No hydronephrosis. 17 cc of residual urine in a post void image. Normal-sized prostate gland with a volume: 21 cc.. Assessment & Plan Assessment & Plan (1) Irregular bowel habits: Code(s): R19.8 - Other specified symptoms and signs involving the digestive system and abdomen Category: Medical (2) Elevated PSA: Code(s): R97.20 - Elevated prostate specific antigen [PSA] Category: Medical Plan: Plan Risks and benefits regarding trans rectal ultrasound with prostate biopsy were discussed.? Options of continued surveillance, no treatment and biopsy were offered. The risks include but are not limited to, urinary tract infection, sepsis, difficulty urinating, bleeding into the rectum or bladder that requires intervention and transfusion,and failure to diagnose prostate cancer. The patient understands the options and the risks involved. They wish to proceed. Printed information was provided to ensure he remains off anticoagulation for the appropriate length of time. He may require cardiology or PCP clearance.? An antibiotic will be administered prior to, and following the procedure Plan Recent PSA results reviewed with the patient today; as noted above. We did discussed potential causes of elevated PSA as well as further treatment options and risks and benefits of these treatment options. Will send GI referral for 2nd opinion He currently denies any bothersome urinary issues. He reports be happy with current voiding parameters. We discussed risks and benefits of prostate biopsy All questions were answered Prescription provided for antibiotic therapy and we discussed importance of taking medication day before, day of, and day after procedure. Will schedule for prostate biopsy Follow-up per doctor's orders; or sooner with any issues, concerns, and or questions. Orders: Orders US biopsy prostate Today R97.20 - Elevated prostate specific antigen [PSA] Referrals Gastroenterology Referral R19.8 - Other specified symptoms and signs involving the digestive system and abdomen Medications: New levofloxacin take 1 tablet day before procedure, 1 tablet day of procedure and 1 tablet day after procedure 500 mg PO DAILY 3 tabs 0RF 3 days Patient Instructions: The patient had an opportunity to ask questions regarding the treatment plan. All questions were answered. Physical exam, labs, and imaging were discussed and reviewed in detail. As well as risks, benefits, and discussion of treatment choices. No major barriers to understanding were identified. The patient expressed understanding and agreement with the above treatment plan. The patient was made aware they should contact our office by phone for worsening of their current condition, the appearance of new symptoms, or with any questions or concerns. Compliance is encouraged with any medications and follow up testing that is ordered. It is a privilege to be allowed the opportunity to participate in? your urological care.? Again, if you have any questions or concerns If you have any questions or concerns please do not hesitate to contact me. The office is [phone]. This note is constructed using voice recognition software. While every effort h as been made to ensure accuracy cleat maker errors may have been included. Yours sincerely, ZAID Gastelum Coding Level of Care Code Est Pt Level 4 (79270) Diagnoses Irregular bowel habits R19.8 Elevated PSA R97.20
--- OUTSIDE RECORDS SUMMARY | 2025-05-26 15:46 | XMS_ITS | Patient Health Record ---
Author Organization [facility] Address [address] [place] [address] Care Team Providers Care Care Transition Manager Name Role Phone ZACHARY DODSON Primary Care Provider He Hackett Unavailable [phone] Allergies No Known Allergies Results Component Value Reference Range Notes Complete Blood Count Auto Di ff Reviewed date:12/28/2024 01:03:31 PM Interpretation: Performing Lab:[facility], [address] [place] [phone] Notes/Report: White Blood Count 6.0 4.8-10.8 X10*3/uL [...] Panel Reviewed date:12/28/2024 01:03:24 PM Interpretation: Performing Lab:[address] [address] Notes/Report: Sodium 141 135-145 mmol/L Potassium 3.6 [...] g Reviewed date:12/28/2024 01:03:16 PM Interpretation: Performing Lab:[address] [address] Notes/Report: Glucose Fasting 89 60-99 mg/dL Pathology Reviewed date:01/01/2025 01:59:03 PM Interpretation: Performing Lab:[address] [address] Notes/Report: Reason For Referral No Information Medications [...] W/U Status Risk Notes Problem Rectal bleeding (15884692) Rectal bleeding (K62.5) Active confirmed Problem Hemorrhoids (37340045) Hemorrhoids (K64.9) Active confirmed Problem Constipation (68201924) Constipation (K59.00) Active confirmed Problem Iron deficiency anemia (83105515) Iron deficiency anemia (D50.9) Active confirmed Problem Iron deficiency anemia due to chronic blood loss (876714324) Iron deficiency anemia due to chronic blood loss (D50.0) Active confirmed Problem Gastrointestinal hemorrhage (53054049) GI bleed (K92.2) Active confirmed Vital Signs Blood pressure diastolic 77 mm Hg 03/03/2025 72 Height 72 in 03/03/2025 72 Blood pressure systolic 111 mm Hg 03/03/2025 72 Weight 217 lbs 03/03/2025 72 BMI 29.43 kg/m2 03/03/2025 72 Encounters Encounter Location Date Provider Diagnosis [facility] [address] [place] [phone] 03/03/2025 He Myers Constipation K59.00 ; Iron deficiency anemia due to chronic blood loss D50.0 ; Rectal bleeding K62.5 and Hemorrhoids K64.9 [facility] [address] [place] [address] 12/28/2024 He Myers Iron deficiency anem ia [...] D50.0) Continue the Iron twice a day halfway. Continue the omeprazole Overall, Jose appears very [...] Name:He Bach Lucia , 07/28/2025 09:00:00 AM, [address] [place] [address], [address], [place], [address], Insurance Providers Payer Name Payer Address Payer Phone Subscriber Number Group Number Insured Name Patient Relationship to Insured Coverage Start Date Coverage End Date [facility] [address] [place] [address] [id number] JOSE ELDRIDGE Self - patient is the [...] colonoscopy prior to his hospitalization at [facility] that was nonrevealing. Denies NH,DM,CVA,Lung disease,renal dise ase Surgical History Surgery Date(Month/Year) Inguinal hernia
--- OUTSIDE RECORDS SUMMARY | 2025-05-26 15:46 | XMS_ITS | Clinical Summary ---
Author Organization [facility] Address [address] [place] [address] Care Team Providers Care Accessories Repairer Name Role Phone Unavailable Primary Care Provider [...]
== END 2025-05-26 15:47 | disposition home or self-care (01) ==
LOC: HO.HUSH 15:06
PROVIDERS: PCP Internal Medicine; Visit Provider Nurse Practitioner Family
DX: R19.8 Other specified symptoms and signs involving the digestive system and abdomen (principal); R97.20 Elevated prostate specific antigen [PSA]
CPT/HCPCS: 99214

== ENCOUNTER 2025-06-07 07:33 | Outpatient (REF) | payer OTHER, SELFPAY ==
--- OUTSIDE RECORDS SUMMARY | 2025-06-07 07:36 | XMS_ITS | Patient Health Record ---
Author Organization [facility] Address [address] [place] [address] Care Team Providers Care Chemist Assistant Name Role Phone ZACHARY DODSON Primary Care Provider He Hackett Unavailable [phone] Allergies No Known Allergies Results Component Value Reference Range Notes Complete Blood Count Auto Di ff Reviewed date:12/28/2024 01:03:31 PM Interpretation: Performing Lab:[facility], [address] [place] [phone] Notes/Report: White Blood Count 6.0 4.8-10.8 X10*3/uL [...] Panel Reviewed date:12/28/2024 01:03:24 PM Interpretation: Performing Lab:[address] [address] Notes/Report: Sodium 141 135-145 mmol/L Potassium 3.6 [...] g Reviewed date:12/28/2024 01:03:16 PM Interpretation: Performing Lab:[address] [address] Notes/Report: Glucose Fasting 89 60-99 mg/dL Pathology Reviewed date:01/01/2025 01:59:03 PM Interpretation: Performing Lab:[address] [address] Notes/Report: Reason For Referral No Information Medications [...] W/U Status Risk Notes Problem Rectal bleeding (32095063) Rectal bleeding (K62.5) Active confirmed Problem Hemorrhoids (28134254) Hemorrhoids (K64.9) Active confirmed Problem Constipation (54168647) Constipation (K59.00) Active confirmed Problem Iron deficiency anemia (27801791) Iron deficiency anemia (D50.9) Active confirmed Problem Iron deficiency anemia due to chronic blood loss (023346382) Iron deficiency anemia due to chronic blood loss (D50.0) Active confirmed Problem Gastrointestinal hemorrhage (19993696) GI bleed (K92.2) Active confirmed Vital Signs Blood pressure diastolic 77 mm Hg 03/03/2025 72 Height 72 in 03/03/2025 72 Blood pressure systolic 111 mm Hg 03/03/2025 72 Weight 217 lbs 03/03/2025 72 BMI 29.43 kg/m2 03/03/2025 72 Encounters Encounter Location Date Provider Diagnosis [facility] [address] [place] [address] 03/03/2025 He Myers Constipation K59.00 ; Iron deficiency anemia due to chronic blood loss D50.0 ; Rectal bleeding K62.5 and Hemorrhoids K64.9 [facility] [address] [place] [address] 12/28/2024 He Myers Iron deficiency anem ia [...] D50.0) 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 Continue the omeprazole Overall, Jose appears very [...] Bach Lucia , 07/28/2025 09:00:00 AM, [address] [place] [address], [address], [place], [address], Insurance Providers Payer Name Payer Address Payer Phone Subscriber Number Group Number Insured Name Patient Relationship to Insured Coverage Start Date Coverage End Date [facility] [address] [place] [address] [id number] JOSE ELDRIDGE Self - patient is the [...] negative colonoscopy prior to his hospitalization at [facility] that was nonrevealing. Denies [place],DM,CVA,Lung disease,renal dise ase Surgical History Surgery Date(Month/Year) Inguinal hernia
--- OUTSIDE RECORDS SUMMARY | 2025-06-07 07:36 | XMS_ITS | Clinical Summary ---
Author Organization [facility] Address [address] [place] [address] Care Team Providers Care Director Of Strategic Programs Name Role Phone Unavailable Primary Care Provider [...] 2018 Zoster Vaccines (1 of 2) 2018 Cholesterol Screening (Lipid Panel) 07/25/2024 Colorectal Cancer Screening: Colonoscopy 07/25/2024 HIV Screening 07/25/2024 Hepatitis C Screening 07/25/2024 Social Influencers of Health Screening 07/25/2024 Depression Screening 09/29/2024 COVID-19 Vaccine ( - 2023-2 5 season) 2025 Influenza Vaccine (#1) 2025 HIB Vaccines Aged [...]
[2025-06-07] MEDS: Lidocaine HCl 1 % MPF 5 ML VIAL 10 ML SUBCUT (14:51)
--- NOTE | 2025-06-15 17:15 | W.PM.OPN ---
Operative Note Operative Note Date of Service: 06/07/25 Narrative: Preoperative diagnosis: Elevated PSA Postoperative diagnosis: Elevated PSA Procedure: 1. Attempted transrectal ultrasound measurement of prostate Surgeon: Dr. Kashif Allred Anesthetic: Indications for procedure: Elevated PSA 17.88 Counselling: Technical aspects, risks and benefits of proposed procedure were discussed in full. All questions have been answered, written consent has been obtained and patient agrees to proceed. Procedure: The patient was brought into the procedure area and placed in a left lateral decubitus position. Patient identity confirmed. Perioperative antibiotics confirmed. Safety pause time out performed. JE was performed to dilate rectal sphincter Iodine 10cc with 60 cc gel was placed per rectum to reduce infection risk using a catheter tip syringe. 8 Hz Chaim rectal end-fire ultrasound probe was attempted to be placed transrectally Jamey did not tolerate the placement of the probe. We were unable to place the probe proximally 1 in when he would continuously bear down and expel the probe. Based on our discussion we will organize to perform the biopsy under sedation.
== END 2025-06-07 07:34 | disposition home or self-care (01) ==
LOC: HO.US 07:33
PROVIDERS: PCP Internal Medicine; Visit Provider Urology
DX: R97.20 Elevated prostate specific antigen [PSA] (principal); Z53.29 Procedure and treatment not carried out because of patient's decision for other reasons
CPT/HCPCS: 55700; 76942; J2003

== ENCOUNTER → 2025-06-07 07:33 | Outpatient (BNV) | payer OTHER, SELFPAY | PROVIDERS: PCP Internal Medicine; Visit Provider Urology | DX: R97.20 Elevated prostate specific antigen [PSA] (principal) | CPT/HCPCS: 55700 ==

== ENCOUNTER 2025-07-05 09:26 | Day surgery (SDC) | payer OTHER, SELFPAY ==
--- OUTSIDE RECORDS SUMMARY | 2025-06-23 19:08 | XMS_ITS | Patient Health Record ---
Author Organization [facility] Address [address] [place] [address] Care Team Providers Care Silk Crepe Machine Operator Name Role Phone ZACHARY DODSON Primary Care Provider He Hackett Unavailable [phone] Allergies No Known Allergies Results Component Value Reference Range Notes Complete Blood Count Auto Di ff Reviewed date:12/28/2024 01:03:31 PM Interpretation: Performing Lab:[facility], [address] [place] [phone] Notes/Report: White Blood Count 6.0 4.8-10.8 X10*3/uL [...] Panel Reviewed date:12/28/2024 01:03:24 PM Interpretation: Performing Lab:[address] [address] Notes/Report: Sodium 141 135-145 mmol/L Potassium 3.6 [...] g Reviewed date:12/28/2024 01:03:16 PM Interpretation: Performing Lab:[address] [address] Notes/Report: Glucose Fasting 89 60-99 mg/dL Pathology Reviewed date:01/01/2025 01:59:03 PM Interpretation: Performing Lab:[address] [address] Notes/Report: Reason For Referral No Information Medications [...] W/U Status Risk Notes Problem Rectal bleeding (92942838) Rectal bleeding (K62.5) Active confirmed Problem Hemorrhoids (93273857) Hemorrhoids (K64.9) Active confirmed Problem Constipation (45643427) Constipation (K59.00) Active confirmed Problem Iron deficiency anemia (83550099) Iron deficiency anemia (D50.9) Active confirmed Problem Iron deficiency anemia due to chronic blood loss (446500283) Iron deficiency anemia due to chronic blood loss (D50.0) Active confirmed Problem Gastrointestinal hemorrhage (56095726) GI bleed (K92.2) Active confirmed Vital Signs Blood pressure diastolic 77 mm Hg 03/03/2025 72 Height 72 in 03/03/2025 72 Blood pressure systolic 111 mm Hg 03/03/2025 72 Weight 217 lbs 03/03/2025 72 BMI 29.43 kg/m2 03/03/2025 72 Encounters Encounter Location Date Provider Diagnosis [facility] [place] [facility] [address] [place] [address] 03/03/2025 He Myers Constipation K59.00 ; Iron deficiency anemia due to chronic blood loss D50.0 ; Rectal bleeding K62.5 and Hemorrhoids K64.9 [facility] [place] [facility] [address] [place] [address] 12/28/2024 He Myers Iron deficiency anem ia [...] D50.0) 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 Continue the omeprazole Overall, Jose appears very [...] Name:He Bach Lucia , 07/28/2025 09:00:00 AM, [address] [place] [address], [address], [place], [address], Insurance Providers Payer Name Payer Address Payer Phone Subscriber Number Group Number Insured Name Patient Relationship to Insured Coverage Start Date Coverage End Date [facility] [address] [place] [address] [id number] JOSE ELDRIDGE Self - patient is the [...] negative colonoscopy prior to his hospitalization at [facility] that was nonrevealing. Denies [place],DM,CVA,Lung disease,renal dise ase Surgical History Surgery Date(Month/Year) Inguinal hernia
[2025-07-01 12:52] VITALS: BMI 28.8
[2025-07-05 09:36] VITALS: BP 147/88; PULSE 64; RESP 14; TEMP 36.7; O2SAT 95; BMI 29.1
--- NOTE | 2025-07-05 09:37 | MHC.SHP ---
Pre-Procedural Eval Section A - 24 Hr Update-Section A only Date of Service: 07/05/25 The patient is an INPATIENT: No The patient has been examined within 24 hours of the surgical procedure. The History & Physical has been completed within 30 days and I have reviewed it.: Yes Section B - Complete if H&P > 30 days Chief Complaint: Elevated prostate specific antigen [PSA] Allergies: Allergies Allergy/AdvReac Type Severity Reaction Status Date / Time No Known Allergies Allergy Verified 05/26/25 15:55 Plan Diagnosis/Plan: Unchanged I have reviewed the history and physical and performed a pertinent physical examination on my patient. No changes have occurred unless specified. Transrectal Ultrasound guided biopsy of the prostate. Discussed risks to include but not limited to pain, blood in stool, urine and semen, septicemia, need to repeat biopsy. Time Spent With Patient Time: Total time managing care of this patient today ____ minutes.
--- NOTE | 2025-07-05 09:45 | HO.ANESPROP2 ---
Documented by User: Yoli Walter NP 07/01/25 12:08 HPI - Anesthesia Eval Consult details Narrative: 54 yr old male for Prostate Needle Biopsy H/O iron-deficiency anemia secondary to rectal bleeding: better after hemorhoidectomy & iron tx s/p hemoroidectomy 03/2025 with GA, ETT 7.5 PMFSH Active Problems Active Problems: All Active Problems (Updated 05/13/25 @ 09:56 by Petra Epps MD) Prostatitis (Acute) Subclinical hypothyroidism (Acute) Elevated PSA (Acute) Spondylosis (Acute) Lesion of liver (Acute) Diverticular disease of colon (Acute) Establishing care with new doctor, encounter for (Acute) Benign skin lesion (Acute) Kidney lesion (Acute) Chewing tobacco dependence (Acute) Pulmonary nodules (Acute) Severe anemia (Acute) Bleeding hemorrhoids (Acute) Symptomatic anemia (Acute) Constipation (Acute) External hemorrhoids (Acute) Rectal bleed (Acute) Irregular bowel habits (Acute) Otitis externa (Acute) Past Medical History Medical History Subclinical hypothyroidism Elevated PSA Spondylosis Lesion of liver Diverticular disease of colon Establishing care with new doctor, encounter for Benign skin lesion Kidney lesion Chewing tobacco dependence Pulmonary nodules Severe anemia Bleeding hemorrhoids Family History Family History Father Lung cancer Mother No problems noted. Family history of problems with anesthesia: No Surgical History Surgical History H/O hemorrhoidectomy (04/07/25) Hx of colonoscopy (12/28/24) Hx of esophagogastroduodenoscopy (12/28/24) History of Problems with Anesthesia: No Social History Social History Household Members: None Housing: House Are you a primary daycare teacher to a significant other at home: No Do you presently have visiting nurse or other home services: No Alcohol intake: current Alcohol intake frequency: a few times a month Patient Tobacco Use Status: Current everyday Tobacco user Tobacco use type: Smokeless Tobacco e-Cigarette/Vaping Use: Never Used Second Hand Smoke Exposure: No Use of substances other than those prescribed or required for medical reasons: Yes Substance Use Type: Marijuana Substance Use Frequency: Daily Have you been hit, kicked, punched, or otherwise hurt by someone within the past year? If so, by whom?: No Are you DNR?: No Advance Directives: No Advance Directives Information Provided: Yes Advance Directives Date on File: 12/27/24 Poor oral hygiene: No service: Yes Current occupational status: employed Cognitive needs: No Hearing needs: No Vision needs: Yes (rx glasses) Meds Allergies Allergy/AdvReac Type Severity Reaction Status Date / Time No Known Allergies Allergy Verified 05/26/25 15:55 Home Medications ?Medication ?Instructions ?Recorded ?Confirmed ?Last Taken ?Type finasteride 1 mg tablet (Propecia) 1 mg PO DAILY 12/24/24 05/26/25 Unknown History Assessment and Plan Final Anesthetic Review Family History of Problems with Anesthesia: No History of Problems with Anesthesia: No Documented by User: Esme Villagomez DO 07/05/25 09:48 HPI - Anesthesia Eval Consult details Narrative: 54 yr old male for Prostate Needle Biopsy H/O iron-deficiency anemia secondary to rectal bleeding: better after hemorhoidectomy & iron tx s/p hemorroidectomy 03/2025 with [place], ETT 7.5 PMFSH Past Medical History Medical History Subclinical hypothyroidism Elevated PSA Spondylosis Lesion of liver Diverticular disease of colon Establishing care with new doctor, encounter for Benign skin lesion Kidney lesion Chewing tobacco dependence Pulmonary nodules Severe anemia Bleeding hemorrhoids Family History Family History Father Lung cancer Mother No problems noted. Family history of problems with anesthesia: No Surgical History Surgical History H/O hemorrhoidectomy (04/07/25) Hx of colonoscopy (12/28/24) Hx of esophagogastroduodenoscopy (12/28/24) History of Problems with Anesthesia: No Social History Social History Household Members: None Housing: House Are you a primary daycare teacher to a significant other at home: No Do you presently have visiting nurse or other home services: No Alcohol intake: current Alcohol intake frequency: a few times a month Patient Tobacco Use Status: Current everyday Tobacco user Tobacco use type: Smokeless Tobacco e-Cigarette/Vaping Use: Never Used Second Hand Smoke Exposure: No Use of substances other than those prescribed or required for medical reasons: Yes Substance Use Type: Marijuana Substance Use Frequency: Daily Have you been hit, kicked, punched, or otherwise hurt by someone within the past year? If so, by whom?: No Are you DNR?: No Advance Directives: No Advance Directives Information Provided: Yes Advance Directives Date on File: 12/27/24 Poor oral hygiene: No service: Yes Current occupational status: employed Cognitive needs: No Hearing needs: No Vision needs: Yes (rx glasses) Meds Allergies Allergy/AdvReac Type Severity Reaction Status Date / Time No Known Allergies Allergy Verified 05/26/25 15:55 Home Medications ?Medication ?Instructions ?Recorded ?Confirmed ?Last Taken ?Type finasteride 1 mg tablet (Propecia) 1 mg PO DAILY 12/24/24 05/26/25 Unknown History Exam Exam Date and Time: 07/05/25 0945 Height,Weight and Vital Signs: Height 6 ft Weight 97.3 kg Vital Signs Temperature 98.0 F 07/05/25 09:36 Pulse Rate 64 07/05/25 09:36 Respiratory Rate 14 07/05/25 09:36 Blood Pressure 147/88 H 07/05/25 09:36 Pulse Oximetry 95 07/05/25 09:36 Oxygen Delivery Method Room Air 07/05/25 09:36 Temperature 98.0 F 07/05/25 09:36 Pulse Rate 64 07/05/25 09:36 Respiratory Rate 14 07/05/25 09:36 Blood Pressure 147/88 H 07/05/25 09:36 Pulse Oximetry 95 07/05/25 09:36 Oxygen Delivery Method Room Air 07/05/25 09:36 Airway Mallampati Class: I TM Dist: >3cm Neck ROM: Full Loose/Missing/Broken Teeth: No (patient denies any loose or broken teeth) Heart: S1S2 Lungs: CTAB Assessment and Plan Assessment Anesthesia Assessment: Anesthesia Plan Discussed and Chart Reviewed Final Anesthetic Review Family History of Problems with Anesthesia: No History of Problems with Anesthesia: No NPO: Yes ASA Class: II Final Preanesthetic Review: No Changes in Pt Med Stat, Meds/Allgs Chart Reviewed, Consent Obtained/Reviewed and Anes Risks/Benef Reviewed Patient Risk: Low Procedure Risk: Low Anesthetic Plan Anesthetic Plan: GA and Agree w/ Assess. and Plan Disposition: Standard PACU
[2025-07-05] MEDS: Lactated Ringers 1,000 ML 100 ML IVCONT (09:49)
--- NOTE | 2025-07-05 09:52 | P.OP_ITS ---
Operative Note Operative Note Date of Service: 07/05/25 Narrative: PreOperative Diagnosis:? ? Elevated PSA Post Operative Diagnosis:??Elevated PSA Procedure:?1. Transrectal ultrasound guided biopsy of the prostate 12 core 2. Transrectal ultrasound measurement of prostate 3. Transrectal ultrasound guided pudendal nerve block Surgeon:?Dr Yadi Montelongo Anesthesia:? General Indications for procedure: Elevated PSA Procedure: Preoperative antibiotics confirmed. After informed consent was verified the patient was placed on the procedure table in left lateral position. Patient identity confirmed. Safety pause time-out performed. Digital rectal exam performed to dilate rectal sphincter, iodine mixed with lubricant jelly 30 cc placed per rectum. Ultrasound probe was placed per rectum. The prostate was visualized. The prostate was measured width 4.08 cm, height 2.36 cm, length 4.27 cm with a volume of 21.6 mL. An ultrasound guided pudendal nerve block was performed using 10 cc of 1% lidocaine. A 12 core biopsy was performed from the left base, left mid, left ape x and right base, mid, apex 2 biopsies from each section. The ultrasound probe was removed and digital palpation of the prostate for 1-2 minutes for hemostasis was performed. The patient tolerated the procedure well. Complications: None
[2025-07-05 10:45] VITALS: BP 110/70; PULSE 64; RESP 13; TEMP 36.4; O2SAT 99
[2025-07-05 10:50] VITALS: BP 101/63; PULSE 66; RESP 14; O2SAT 100
[2025-07-05 10:55] VITALS: BP 105/63; PULSE 65; RESP 16; O2SAT 100
[2025-07-05 11:00] VITALS: BP 104/66; PULSE 64; PULSE 65; RESP 14; RESP 21; O2SAT 98
[2025-07-05 11:15] VITALS: BP 111/62; PULSE 71; RESP 18; TEMP 36.1; O2SAT 97
== END 2025-07-05 11:53 | disposition home or self-care (01) ==
PROVIDERS: PCP Internal Medicine; Visit Provider Urology
PROC: (CPT 55700; principal; 2025-07-05 10:30)
DX: C61 Malignant neoplasm of prostate (principal); R97.20 Elevated prostate specific antigen [PSA]; E03.8 Other specified hypothyroidism; N28.1 Cyst of kidney, acquired; K76.9 Liver disease, unspecified; R91.8 Other nonspecific abnormal finding of lung field; D64.9 Anemia, unspecified; K58.9 Irritable bowel syndrome, unspecified; Z79.899 Other long term (current) drug therapy; Z79.1 Long term (current) use of non-steroidal anti-inflammatories (NSAID); F17.220 Nicotine dependence, chewing tobacco, uncomplicated; Z98.890 Other specified postprocedural states
CPT/HCPCS: 55700; 76942; 88305; J1956; J2003

== ENCOUNTER → 2025-07-05 09:26 | Outpatient (BNV) | payer OTHER, SELFPAY | PROVIDERS: PCP Internal Medicine; Visit Provider Urology | DX: R97.20 Elevated prostate specific antigen [PSA] (principal) | CPT/HCPCS: 55700; 76872; 76942 ==

== ENCOUNTER 2025-07-28 13:18 | Outpatient (AMB) | payer OTHER, SELFPAY ==
--- NOTE | 2025-07-28 13:22 | MHC.OFFVIS ---
Intake Visit Reasons: Prostate biopsy results Intake Note: Patient is present for Telehealth Prostate Biopsy Results Urology Med: Finasteride Antibiotic Allergy: None Blood Thinner: None [employer] Medic Required: No Accompanied by: Self / Same As Patient Allergies No Known Allergies Allergy (Verified 07/28/25 13:22) HPI Comments Details: Jamey is a pleasant male. He is a patient of Dr. Perales. He is seen for the following urologic conditions - prostate cancer Telemedicine Evaluation 15 min Consultation [employer] Umair Video Discussed biopsy results Grade group 1 and grade group 2 Recommend complete staging with prostate MRI in 3 or 4 weeks with follow-up Given age and burden of disease robotic prostatectomy would be first-line therapy Prostate Cancer Grade Group 1 and 2 Histologic type: Adenocarcinoma, acinar type Histologic grade: Debra score: 7 (3+4) (left base medial, left mid lateral and medial, right base lateral and medial, right mid lateral and medial) 6 (3+3) (left base lateral, left apex lateral and medial) % of pattern 4: 20% % of pattern 5: 0% Grade group: 2 and 1 Tumor quantitation: Number cores positive: 10 Total number of cores: 13 % of tissue involved: 38% Periprostatic fat inv.: Not identified Seminal vesicle inv.: Not identified Perineural inv.: Present Lymphatic and/or vascular invasion: Not identified PSAs: 03/23 16.4, 05/23 17.9 PFSH Medical History Subclinical hypothyroidism Elevated PSA Spondylosis Lesion of liver Diverticular disease of colon Establishing care with new doctor, encounter for Benign skin lesion Kidney lesion Chewing tobacco dependence Pulmonary nodules Severe anemia Bleeding hemorrhoids Surgical History H/O hemorrhoidectomy (04/07/25) Hx of colonoscopy (12/28/24) Hx of esophagogastroduodenoscopy (12/28/24) Family History Father Lung cancer Mother No problems noted. Social History Household Members: None Housing: House Are you a primary child care education coordinator to a significant other at home: No Do you presently have visiting nurse or other home services: No Alcohol intake: current Alcohol intake frequency: a few times a month Patient Tobacco Use Status: Current everyday Tobacco user Tobacco use type: Smokeless Tobacco e-Cigarette/Vaping Use: Never Used Second Hand Smoke Exposure: No Substance Use Type: Marijuana Advance Directives Date on File: 12/27/24 service: Yes Current occupational status: employed Cognitive needs: No Hearing needs: No Vision needs: Yes (rx glasses) Review of Systems Const All systems reviewed & are unremarkable except as noted in HPI and below Reports no additional complaints Resp Reports no additional complaints GI Reports no additional complaints Reports as per HPI Musc Reports no additional complaints Physical Exam Telemedicine evaluation Appropriate responses Regular breathing rate and rhythm HEENT Head: Yes normal to inspection Ears: hearing grossly normal bilaterally Eyes General: appearance normal, both eyes and all related structures Neck Neck: Yes normal visual inspection Chest Chest palpation & inspection: normal inspection of the chest Resp Effort & Inspection: normal respiratory effort and able to speak in complete sentences Telehealth Telehealth Telehealth Platform: [employer] Location of provider rendering services: practice address Location of patient: address on file Patient Identification confirmed using: Name, : Yes Telehealth method: voice only Patient verbally consented to treatment: Yes Patient verbally consented to billing insurance company: Yes Patient informed of any privacy concerns related to visit: Yes Minutes spent on Phone/Video with Pt.: 15 Assessment & Plan Assessment & Plan (1) Hormone sensitive prostate cancer: Code(s): C61 - Malignant neoplasm of prostate; Z19.1 - Hormone sensitive malignancy status Category: Medical Plan Prostate MRI Follow-up Orders: Orders MR Prostate wo/w con 4 Weeks C61 - Malignant neoplasm of prostate, Z19.1 - Hormone sensitive malignancy status Patient Instructions: This note is constructed using voice recognition software. While every effort has been made to ensure accuracy public finance specialist errors may have been included. Imaging studies, laboratory and physical exam results were discussed and reviewed in detail. No major barriers to patient understanding were identified. An opportunity to ask questions regarding the treatment plan was provided. All questions were answered. The patient expressed understanding and agreement with the above treatment plan. The patient is aware they should contact our office by phone for worsening of their current condition or the appearance of new urologic symptoms. Compliance is encouraged with any medications and followup testing that is ordered. It is a privilege to participate in the urologic care of your patient. If you have any questions or concerns regarding treatment for the above conditions, or other urologic issues, please do not hesitate to contact me. The office telephone contact is [phone]. Sincerely, Dr Kashif Allred MD, [facility] - Urology Compassionate Specialist Care for the Genitourinary System Coding Level of Care Code Tele Est Pt Level 4 (36369) Complex EM visit Add On G2211 Diagnoses Hormone sensitive prostate cancer C61; Z19.1
--- OUTSIDE RECORDS SUMMARY | 2025-07-28 16:17 | XMS_ITS | Clinical Summary ---
Author Organization [facility] Address [address] [place] [address] Care Team Providers Care Double Needle Operator Name Role Phone Unavailable Primary Care Provider Unavailabl e Social History Tobacco Use Types Packs/Day Years Used Date Smoking Tobacco: Never Assessed Sex and Gender Information Value Date Recorded Sex Assigned at Not on file Legal Sex Male 8:49 AM EDT Gender Identity Not on file Sexual Orientation Not on file Plan of Treatment Health Maintenance Due Date Last Done Comments Colorectal Cancer Screening: Colonoscopy 1968 DTaP,Tdap,and Td Vaccines (1 - Tdap) 1987 Hepatitis B Vaccines (1 of 3 - 19+ 3-dose series) 1987 Pneumococcal Vaccine: 50+ Ye ars (1 of 1 - PCV) 2018 Zoster Vaccines (1 of 2) 2018 Cholesterol Screening (Lipid Panel) 07/25/2024 HIV Screening 07/25/2024 Hepatitis C Screening 07/25/2024 Social Influencers of Health Screening 07/25/2024 Depression Screening 09/29/2024 COVID-19 Vaccine ( - 2023-2 5 season) 2025 Influenza Vaccine (#1) 2025 RSV Immunization Adult Patie nts (1 - 1-dose 75+ series) 2043 HIB Vaccines Aged Out No longer eligi [...]
--- OUTSIDE RECORDS SUMMARY | 2025-07-28 16:17 | XMS_ITS | Patient Health Record ---
Author Organization [facility] Address [address] [place] [address] Care Team Providers Care Experimental Mechanic Name Role Phone ZACHARY DODSON Primary Care Provider He Hackett Unavailable [phone] Allergies No Known Allergies Results Component Value Reference Range Notes Complete Blood Count Auto Di ff Reviewed date:12/28/2024 01:03:31 PM Interpretation: Performing Lab:[facility], [address] [place] [phone] Notes/Report: White Blood Count 6.0 4.8-10.8 X10*3/uL [...] Panel Reviewed date:12/28/2024 01:03:24 PM Interpretation: Performing Lab:[address] [phone] Notes/Report: Sodium 141 135-145 mmol/L Potassium 3.6 [...] g Reviewed date:12/28/2024 01:03:16 PM Interpretation: Performing Lab:[facility], [address] [place] [phone] Notes/Report: Glucose Fasting 89 60-99 mg/dL Pathology Reviewed date:01/01/2025 01:59:03 PM Interpretation: Performing Lab:[facility], [address] [place] [phone] Notes/Report: Reason For Referral No Information Medications [...] on sat 2-3 drinks in the evening drinks one day a week on sat 2-3 drinks in the evening Problems Problem Type SNOMED Code ICD Code Onset Dates Problem Status W/U Status Risk Notes Problem Rectal bleeding (10617395) Rectal bleeding (K62.5) Active confirmed Problem Hemorrhoids (94514731) Hemorrhoids (K64.9) Active confirmed Problem Constipation (84859667) Constipation (K59.00) Active confirmed Problem Iron deficiency anemia (24409815) Iron deficiency anemia (D50.9) Active confirmed Problem Iron deficiency anemia due to chronic blood loss (212421282) Iron deficiency anemia due to chronic blood loss (D50.0) Active confirmed Problem Gastrointestinal hemorrhage (68758241) GI bleed (K92.2) Active confirmed Vital Signs Temperature 97.7 degrees Fahrenheit 07/28/2025 Blood pressure diastolic 01 mm Hg 07/28/2025 Height 72 in 07/28/2025 Blood pressure systolic 001 mm Hg 07/28/2025 Weight 221 lbs 07/28/2025 BMI 29.97 kg/m2 07/28/2025 Encounters Encounter Location Date Provider Diagnosis [facility] [address] [facility] [address] [place] [address] 03/03/2025 He Myers Constipation K59.00 ; Iron deficiency anemia due to chronic blood loss D50.0 ; Rectal bleeding K62.5 and Hemorrhoids K64.9 [facility] [address] [place] [address] 07/28/2025 He Myers Iron deficiency anem ia D50.9 ; Constipation K59.00 ; Rectal bleeding K62.5 ; Iron deficiency anemia due to chronic blood loss D50.0 and Hemorrhoids K64.9 [facility] [address] [place] [address] 12/28/2024 He Myers Iron deficiency anem ia [...] to keep you advised of his progress.. 07/28/2025 Iron deficiency anemia (ICD-10 - D50.9) [...] to keep you advised of his progress. 12/28/2024 Iron deficiency anemia (ICD-10 - D50.9) [...] to keep you advised of his progress.. 07/28/2025 Constipation (ICD-10 - K59.00) I will [...] to keep you advised of his progress. 03/03/2025 Hemorrhoids (ICD-10 - K64.9) Follow up [...] to keep you advised of his progress.. 07/28/2025 Rectal bleeding (ICD-10 - K62.5) Overall [...] advised of his progress. Plan Of Treatment Pending Test Test Name Order Date IRON + IBC (FE) 12/28/2024 CBC w DIFF 12/28/2024 Ferritin 12/28/2024 Vitamin B12 and Folate 12/28/2024 Next Appt Details Provider Name:He Myers , 01/26/2026 09:00:00 AM, [address] [place] [address], [address], [place], [address], Insurance Providers Payer Name Payer Address Payer Phone Subscriber Number Group Number Insured Name Patient Relationship to Insured Coverage Start Date Coverage End Date [employer] [address] [place] [address] [id number] JAZMYN JOSE Self - patient is the insured 4 [...] negative colonoscopy prior to his hospitalization at [facility] that was nonrevealing. His anemia resolved after his hemorrhoid surgery with Dr. Robin in March 2025.He did receive IV iron infusions with Dr. Epps as well Denies [place],DM,CVA,Lung disease,renal dise ase Elevated PSA for which he un derwent a prostate biopsy with Dr. Allred in 06/2025 Surgical History Surgery Date(Month/Year) Hemorrhoidectomy 03/[address] Collette urssell Inguinal hernia
== END 2025-07-28 15:39 | disposition home or self-care (01) ==
LOC: HO.HUSH 13:18
PROVIDERS: PCP Internal Medicine; Visit Provider Urology
DX: C61 Malignant neoplasm of prostate (principal); Z19.1 Hormone sensitive malignancy status
CPT/HCPCS: 99214; G2211

== ENCOUNTER → 2025-08-10 08:24 | Outpatient (BNV) | payer OTHER, SELFPAY | PROVIDERS: PCP Internal Medicine; Visit Provider Radiology Diagnostic Radiology | DX: N41.9 Inflammatory disease of prostate, unspecified (principal) | CPT/HCPCS: 72197; 76377 ==

== ENCOUNTER 2025-08-10 08:30 | Outpatient (REF) | payer OTHER, SELFPAY ==
--- OUTSIDE RECORDS SUMMARY | 2025-07-28 04:00 | XMS_ITS ---
Author Organization [facility] Address [address] [place] [address] Care Team Providers Care Corporate Health Consultant Name Role Phone ZACHARY DODSON Primary Care Provider He Hackett [phone] REASON FOR VISIT Patient presents today for anemia Medications Medication SIG (Take, Route, Frequency, Duration) Notes Start Date End Date Status Ferrous Sulfate 324 MG 1 tablet Orally T WO TIMES A DAY 03/03/2025 Active Dulcolax 10 MG 1 Rectal Once every morning; Duration: 30 days 07/28/2025 Active Propecia Active Omeprazole 20 MG 1 capsule 1/2 to 1 h our before morning meal Orally Once a day Active Immunizations Vaccine Route Administration Date Status Comme nts Influenza Unknown 07/28/2025 Refused Social History Tobacco Use: Social History Observation [...] on sat 2-3 drinks in the evening Vital Signs Temperature 97.7 degrees Fahrenheit 07/28/20 25 Blood pressure systolic 001 mm Hg 07/28/20 25 Blood pressure diastolic 01 mm Hg 025 Height 72 in 07/28/2025 Weight 221 lbs 07/28/2025 BMI 29.97 kg/m2 07/28/2025 Encounters Encounter Location Date Provider Diagnosis [facility] [address] [place] [address] 07/28/2025 He Myers Iron deficiency anem ia D50.9 ; Constipation K59.00 ; Rectal bleeding K62.5 ; Iron deficiency anemia due to chronic blood loss D50.0 and Hemorrhoids K64.9 Assessments Encounter Date Diagnosis (ICD Code) Assessment Notes Treatment Notes Treatment Clinical Notes Section Notes 07/28/2025 Iron deficiency anemia (ICD-10 - D50.9) Overall Jose appears quite well. We did review that obviously his bleeding has markedly improved after the hemorrhoid surgery and his hemoglobin is also markedly improved by eliminating the bleeding and receiving the iron infusions. He is feeling well in that regard. However, his main focus remains that of his difficulty in the morning of feeling emptied out enough to go to work. He therefore spends hours going back and forth to the bathroom to do that prior to leaving the house. I did review with him that I do not think he needs to stay home for that but he is quite adamant in this regimen that keeps him home each morning. Unfortunately it seems that he has become quite focused on this problem. I did try to reassure him about this. I have recommended that he increase his fiber pills to 4 twice a day with plenty of water, as well as increasing the MiraLAX to twice a day. I have also sent over a prescription for some Dulcolax suppositories for him to use each morning when he gets up to see if that might facilitate better emptying for him and give him some satisfaction . I did advise him that if within 2 to 3 weeks things are not any better he can call me and we might want to try something like Linzess, although he is not having typical constipation symptoms. I will plan to see Jose in about 6 months for a follow-up visit but I did advise him to keep me posted as needed. He was comfortable with this plan, albeit frustrated. Thank you again for allowing me to participate in Jose's care. I shall continue to keep you advised of his progress. 07/28/2025 Constipation (ICD-10 - K59.00) I will send over a prescription for a suppository to try every morning. Increase the fiber pills to 4 twice a day with a lot of water, and increase the Miralax to twice a day. If this doesn't help the BM's we could then try a prescription like Linzess. Call me if needed. Overall Jose appears quite well. We did review that obviously his bleeding has markedly improved after the hemorrhoid surgery and his hemoglobin is also markedly improved by eliminating the bleeding and receiving the iron infusions. He is feeling well in that regard. However, his main focus remains that of his difficulty in the morning of feeling emptied out enough to go to work. He therefore spends hours going back and forth to the bathroom to do that prior to leaving the house. I did review with him that I do not think he needs to stay home for that but he is quite adamant in this regimen that keeps him home each morning. Unfortunately it seems that he has become quite focused on this problem. I did try to reassure him about this. I have recommended that he increase his fiber pills to 4 twice a day with plenty of water, as well as increasing the MiraLAX to twice a day. I have also sent over a prescription for some Dulcolax suppositories for him to use each morning when he gets up to see if that might facilitate better emptying for him and give him some satisfaction . I did advise him that if within 2 to 3 weeks things are not any better he can call me and we might want to try something like Linzess, although he is not having typical constipation symptoms. I will plan to see Jose in about 6 months for a follow-up visit but I did advise him to keep me posted as needed. He was comfortable with this plan, albeit frustrated. Thank you again for allowing me to participate in Jose's care. I shall continue to keep you advised of his progress. 07/28/2025 Rectal bleeding (ICD-10 - K62.5) Overall Jose appears quite well. We did review that obviously his bleeding has markedly improved after the hemorrhoid surgery and his hemoglobin is also markedly improved by eliminating the bleeding and receiving the iron infusions. He is feeling well in that regard. However, his main focus remains that of his difficulty in the morning of feeling emptied out enough to go to work. He therefore spends hours going back and forth to the bathroom to do that prior to leaving the house. I did review with him that I do not think he needs to stay home for that but he is quite adamant in this regimen that keeps him home each morning. Unfortunately it seems that he has become quite focused on this problem. I did try to reassure him about this. I have recommended that he increase his fiber pills to 4 twice a day with plenty of water, as well as increasing the MiraLAX to twice a day. I have also sent over a prescription for some Dulcolax suppositories for him to use each morning when he gets up to see if that might facilitate better emptying for him and give him some satisfaction . I did advise him that if within 2 to 3 weeks things are not any better he can call me and we might want to try something like Linzess, although he is not having typical constipation symptoms. I will plan to see Jose in about 6 months for a follow-up visit but I did advise him to keep me posted as needed. He was comfortable with this plan, albeit frustrated. Thank you again for allowing me to participate in Jose's care. I shall continue to keep you advised of his progress. 07/28/2025 Iron deficiency anemia due to chronic blood loss (ICD-10 - D50.0) Overall Jose appears quite well. We did review that obviously his bleeding has markedly improved after the hemorrhoid surgery and his hemoglobin is also markedly improved by eliminating the bleeding and receiving the iron infusions. He is feeling well in that regard. However, his main focus remains that of his difficulty in the morning of feeling emptied out enough to go to work. He therefore spends hours going back and forth to the bathroom to do that prior to leaving the house. I did review with him that I do not think he needs to stay home for that but he is quite adamant in this regimen that keeps him home each morning. Unfortunately it seems that he has become quite focused on this problem. I did try to reassure him about this. I have recommended that he increase his fiber pills to 4 twice a day with plenty of water, as well as increasing the MiraLAX to twice a day. I have also sent over a prescription for some Dulcolax suppositories for him to use each morning when he gets up to see if that might facilitate better emptying for him and give him some satisfaction . I did advise him that if within 2 to 3 weeks things are not any better he can call me and we might want to try something like Linzess, although he is not having typical constipation symptoms. I will plan to see Jose in about 6 months for a follow-up visit but I did advise him to keep me posted as needed. He was comfortable with this plan, albeit frustrated. Thank you again for allowing me to participate in Jose's care. I shall continue to keep you advised of his progress. 07/28/2025 Hemorrhoids (ICD-10 - K64.9) Overall Jose appears quite well. We did review that obviously his bleeding has markedly improved after the hemorrhoid surgery and his hemoglobin is also markedly improved by eliminating the bleeding and receiving the iron infusions. He is feeling well in that regard. However, his main focus remains that of his difficulty in the morning of feeling emptied out enough to go to work. He therefore spends hours going back and forth to the bathroom to do that prior to leaving the house. I did review with him that I do not think he needs to stay home for that but he is quite adamant in this regimen that keeps him home each morning. Unfortunately it seems that he has become quite focused on this problem. I did try to reassure him about this. I have recommended that he increase his fiber pills to 4 twice a day with plenty of water, as well as increasing the MiraLAX to twice a day. I have also sent over a prescription for some Dulcolax suppositories for him to use each morning when he gets up to see if that might facilitate better emptying for him and give him some satisfaction . I did advise him that if within 2 to 3 weeks things are not any better he can call me and we might want to try something like Linzess, although he is not having typical constipation symptoms. I will plan to see Jose in about 6 months for a follow-up visit but I did advise him to keep me posted as needed. He was comfortable with this plan, albeit frustrated. Thank you again for allowing me to participate in Jose's care. I shall continue to keep you advised of his progress. Plan Of Treatment Medication Medication Name Sig Start Date Stop Date Notes Dulcolax 10 MG 1 Rectal Once every morning; Duration: 30 days 07/28/2025 Treatment Notes Assessment Notes Constipation I will send over a p rescription for a suppository to try every morning. Increase the fiber pills to 4 twice a day with a lot of water, and increase the Miralax to twice a day. If this doesn't help the BM's we could then try a prescription like Linzess. Call me if needed. Next Appt Details Follow Up: 6 Months, Reason: Provider Name:He Myers , 01/26/2026 09:00:00 AM, [address] [place] [address], [address], [place], [address], Progress Notes * JOSE ELDRIDGEDOB:1970 (54 yo M)Acc No.[id number]:07/28/2025 Progress Notes Patient: JOSE WILLINGHAM Provider: Jennifer Myers MD :1970 A ge:54 Y S ex:Male Date:07/28/2025 Address:[address] [place], [place] [id number] Pcp:ZACHARY DODSON Subjective: * Chief Complaints: * 1 . Patient presents today for anemia. * HPI: i ncontinence: I saw Jose in follow-up today in regard to his hemorrhoidal bleeding, irregular bowel movements, and anemia. Since I last saw Jose in February he did undergo hemorrhoid surgery with Dr. Robin in March. He describes that this dramatically helped his problem of rectal bleeding and now he has only had occasional episodes of spotting which is a dramatic improvement compared to prior to the surgery. He also received iron infusions with Dr. Epps and his most recent hemoglobin as of April was 12.6. He is feeling much better in this regard and is able to do his usual physical activities including hiking. However, he remains very frustrated and upset about his problem of irregular bowel movements in the morning that require 5 hours to empty out enough to allow him to go to work comfortably as sometimes he will not have access to a bathroom. He does not think he is constipated but simply takes a long time to empty out . This upsets him greatly and sounds like it has become a major focus of his day and life in general. He has been using 2 fiber pills twice a day and 1 dose of MiraLAX daily. Again the bleeding issue is dramatically improved compared to prior to the hemorrhoid surgery. He denies any abdominal pain, abdominal distention, nausea, or vomiting. He is eating well and describes a healthy diet with fiber and fluids. He did advise me that he had a recent prostate biopsy for an elevated PSA and is meeting with Dr. Be. Riggnis later this week to go over the results. * Medical History: I citlaly deficiency anemiafrom presumed hemorrhoidal bleeding. He was hospitalized in November 2024 with a hemoglobin of 5.7 and required transfusions. His colonoscopy revealed only hemorrhoids at that time. His upper endoscopy revealed a hiatal hernia and reflux with biopsies that were negative for Emanuel's esophagus and negative for celiac disease. He also had a negative colonoscopy prior to his hospitalization at [facility] that was nonrevealing. His anemia resolved after his hemorrhoid surgery with Dr. Robin in March 2025.He did receive IV iron infusions with Dr. Epps as well, Denies [place],DM,CVA,Lung disease,renal disease, Elevated PSA for which he underwent a prostate biopsy with Dr. Allred in 06/2025. * Surgical History: I nguinal hernia , Hemorrhoidectomy 03/[address] Robin . * Family History: F ather: , LUNG CANCER. M other: alive, OXYGEN THERAPY. No known hx of colon cancer or liver cancer. * Social History: T obacco Use: T obacco Control (Standard) T obacco use: N onsmoker, A dditional Findings: Tobacco user C hews tobacco. M iscellaneous: M arital status: single. 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 D rug/Alcohol: A RICK-C (Standard) D id you have a drink containing alcohol in the past year? Y es,?How often did you have a drink containing alcohol in the past year? 2 to 4 times a month (2 points), H ow many drinks did you have on a typical day when you were drinking in the past year? 1 or 2 drinks (0 point), H ow often did you have six or more drinks on one occasion in the past year? N ever (0 point), P oints 2 , I nterpretation N egative. d stacie one day a week on sat 2-3 drinks in the evening. * Medications: T garry Propecia , Taking Omeprazole 20 MG Capsule Delayed Release 1 capsule 1/2 to 1 hour before morning meal Orally Once a day , Taking Ferrous Sulfate 324 MG Tablet Delayed Release 1 tablet Orally TWO TIMES A DAY , Notes to Pharmacist: 03/03/2025, Medication List reviewed and reconciled with the patient Objective: * Vitals: W t:221lbs, Ht: 72 in, BMI:29.97Index, BP:001/01mm Hg, Temp:97.7, Ht-cm: 182.88, Wt-k.24. Assessment: * Assessment: 1. I citlaly deficiency anemia - D50.9 (Primary) 2 . C onstipation - K59.00? 3. R ectal bleeding - K62.5 4 . I citlaly deficiency anemia due to chronic blood loss - D50.0 5 . H emorrhoids - K64.9 Overall Jose appears quit e well. We did review that obviously his bleeding has markedly improved after the hemorrhoid surgery and his hemoglobin is also markedly improved by eliminating the bleeding and receiving the iron infusions. He is feeling well in that regard. However, his main focus remains that of his difficulty in the morning of feeling emptied out enough to go to work. He therefore spends hours going back and forth to the bathroom to do that prior to leaving the house. I did review with him that I do not think he needs to stay home for that but he is quite adamant in this regimen that keeps him home each morning. Unfortunately it seems that he has become quite focused on this problem. I did try to reassure him about this. I have recommended that he increase his fiber pills to 4 twice a day with plenty of water, as well as increasing the MiraLAX to twice a day. I have also sent over a prescription for some Dulcolax suppositories for him to use each morning when he gets up to see if that might facilitate better emptying for him and give him some satisfaction . I did advise him that if within 2 to 3 weeks things are not any better he can call me and we might want to try something like Linzess, although he is not having typical constipation symptoms. I will plan to see Jose in about 6 months for a follow-up visit but I did advise him to keep me posted as needed. He was comfortable with this plan, albeit frustrated. Thank you again for allowing me to participate in Jose's care. I shall continue to keep you advised of his progress. Plan: * Treatment: * Immunizations: Influenza (Not administered - Refused: Patient decision) * Preventive Medicine: Counseling: C are goal follow-up plan: A sagar Normal BMI Follow-up D ietary management education, guidance, and counseling, B MN management provided Y es. * Follow Up: 6 Months * * The named appointment provid er may or may not be the originator of this progress note, and it is not deemed complete until electronically signed by the appointment provider. Sign off status: Pending * Provider: Jennifer Myers MD Date: Generated for Paty russell/Isela/Lindaitting on: 10/10/2024 08:49 AM EST History and Physical Notes * HPI (History of Present Illness) Category Sub-Category Detail Notes Category Not es incontinence I saw Jose in follow-up today in regard to his hemorrhoidal bleeding, irregular bowel movements, and anemia. Since I last saw Jose in February he did undergo hemorrhoid surgery with Dr. Robin in March. He describes that this dramatically helped his problem of rectal bleeding and now he has only had occasional episodes of spotting which is a dramatic improvement compared to prior to the surgery. He also received iron infusions with Dr. Epps and his most recent hemoglobin as of April was 12.6. He is feeling much better in this regard and is able to do his usual physical activities including hiking. However, he remains very frustrated and upset about his problem of irregular bowel movements in the morning that require 5 hours to empty out enough to allow him to go to work comfortably as sometimes he will not have access to a bathroom. He does not think he is constipated but simply takes a long time to empty out . This upsets him greatly and sounds like it has become a major focus of his day and life in general. He has been using 2 fiber pills twice a day and 1 dose of MiraLAX daily. Again the bleeding issue is dramatically improved compared to prior to the hemorrhoid surgery. He denies any abdominal pain, abdominal distention, nausea, or vomiting. He is eating well and describes a healthy diet with fiber and fluids. He did advise me that he had a recent prostate biopsy for an elevated PSA and is meeting with Dr. Be. Riggins later this week to go over the results
--- NOTE | ~2025-08-10 | MR_ITS ---
EXAMINATION: MRI prostate without and with contrast. HISTORY: Elevated PSA TECHNIQUE: 1.5T body coil survey of the pelvis was performed. Phase array coil imaging of the prostate was performed in multiplanar high resolution axial, coronal, sagittal fast spin echo T2 and axial T1 weighted imaging sequences. Axial diffusion imaging at intermediate and high field performed with ADC mapping. Next, 10 mL Gadavist was given by intravenous infusion, and dynamic axial imaging performed. COMPARISON: There are no prior studies for comparison. CLINICAL DATA: Most recent PSA: 11.33 ng/mL PSA Density: 0.30 ng/mL squared Prostate Biopsy: Transrectal biopsy 07/05/2025 FINDINGS: Prostate size: 5.5 x 5.0 x 4.8 cm cm. Calculated prostate volume is 37 mL. Hemorrhage: None. Transitional Zone: Heterogeneous but no focal increased T2 signal. Peripheral Zone: T2: Increase bilateral peripheral T2 signal from apex to base bilaterally slightly greater on the right. PI-RADS: 5 Diffusion: Increased bilateral diffusion peripheral zone from base to apex. PI-RADS: 5. DEI: Early bilateral enhancement peripheral zone more prominent at the left mid segment. BP-RADS: 5. Seminal Vesicles/Ejaculatory Ducts: Symmetric and normal in signal and caliber. The capsule appears intact Pelvic Lymph Nodes: No obturator or internal iliac lymph nodes meeting size criteria for adenopathy. Marrow Signal: Normal marrow signal and enhancement without focal lesion identified. MR/MR Prostate wo/w con IMPRESSION: Bilateral peripheral zone apex to base most prominent on the right compared to left. PI-RADS 5: Very high (clinically significant cancer is highly likely to be present) PI-RADS Assessment Categories PI-RADS 1: Very low (clinically significant cancer is highly unlikely to be present) PI-RADS 2: Low (clinically significant cancer is unlikely to be present) PI-RADS 3: Intermediate (the presence of clinically significant cancer is equivocal) PI-RADS 4: High (clinically significant cancer is likely to be present) PI-RADS 5: Very high (clinically significant cancer is highly likely to be present) [employer]. MR Prostate Imaging Reporting and Data System version 2.1. [email or web address] Electronically signed by: Richard Christopher MD 08/10/2025 03:43 PM EST RP
--- NOTE | ~2025-08-10 | MR_ITS ---
EXAMINATION: MRI prostate without and with contrast. HISTORY: Elevated PSA TECHNIQUE: 1.5T body coil survey of the pelvis was performed. Phase array coil imaging of the prostate was performed in multiplanar high resolution axial, coronal, sagittal fast spin echo T2 and axial T1 weighted imaging sequences. Axial diffusion imaging at intermediate and high field performed with ADC mapping. Next, 10 mL Gadavist was given by intravenous infusion, and dynamic axial imaging performed. COMPARISON: There are no prior studies for comparison. CLINICAL DATA: Most recent PSA: 11.33 ng/mL PSA Density: 0.30 ng/mL squared Prostate Biopsy: Transrectal biopsy 07/05/2025 FINDINGS: Prostate size: 5.5 x 5.0 x 4.8 cm cm. Calculated prostate volume is 37 mL. Hemorrhage: None. Transitional Zone: Heterogeneous but no focal increased T2 signal. Peripheral Zone: T2: Increase bilateral peripheral T2 signal from apex to base bilaterally slightly greater on the right. PI-RADS: 5 Diffusion: Increased bilateral diffusion peripheral zone from base to apex. PI-RADS: 5. DEI: Early bilateral enhancement peripheral zone more prominent at the left mid segment. BP-RADS: 5. Seminal Vesicles/Ejaculatory Ducts: Symmetric and normal in signal and caliber. The capsule appears intact Pelvic Lymph Nodes: No obturator or internal iliac lymph nodes meeting size criteria for adenopathy. Marrow Signal: Normal marrow signal and enhancement without focal lesion identified. MR/MR CAD IMPRESSION: Bilateral peripheral zone apex to base most prominent on the right compared to left. PI-RADS 5: Very high (clinically significant cancer is highly likely to be present) PI-RADS Assessment Categories PI-RADS 1: Very low (clinically significant cancer is highly unlikely to be present) PI-RADS 2: Low (clinically significant cancer is unlikely to be present) PI-RADS 3: Intermediate (the presence of clinically significant cancer is equivocal) PI-RADS 4: High (clinically significant cancer is likely to be present) PI-RADS 5: Very high (clinically significant cancer is highly likely to be present) [employer]. MR Prostate Imaging Reporting and Data System version 2.1. [email or web address]/ Electronically signed by: Richard Christopher MD 08/10/2025 03:43 PM [facility]
--- OUTSIDE RECORDS SUMMARY | 2025-08-10 08:49 | XMS_ITS | Patient Health Record ---
Author Organization [facility] Address [address] [place] [address] Care Team Providers Care Hospital Cleaning Specialist Name Role Phone ZACHARY DODSON Primary Care Provider He Hackett Unavailable [phone] Allergies No Known Allergies Results Component Value Reference Range Notes Complete Blood Count Auto Di ff Reviewed date:12/28/2024 01:03:31 PM Interpretation: Performing Lab:[facility], [address] [place] [phone] Notes/Report: White Blood Count 6.0 4.8-10.8 X10*3/uL [...] Panel Reviewed date:12/28/2024 01:03:24 PM Interpretation: Performing Lab:[address] [phone] Notes/Report: Sodium 141 135-145 mmol/L Potassium 3.6 [...] g Reviewed date:12/28/2024 01:03:16 PM Interpretation: Performing Lab:[facility], [address] [place] [phone] Notes/Report: Glucose Fasting 89 60-99 mg/dL Pathology Reviewed date:01/01/2025 01:59:03 PM Interpretation: Performing Lab:[facility], [address] [place] [phone] Notes/Report: Reason For Referral No Information Medications [...] W/U Status Risk Notes Problem Rectal bleeding (84305361) Rectal bleeding (K62.5) Active confirmed Problem Hemorrhoids (88600236) Hemorrhoids (K64.9) Active confirmed Problem Constipation (69042567) Constipation (K59.00) Active confirmed Problem Iron deficiency anemia (00742585) Iron deficiency anemia (D50.9) Active confirmed Problem Iron deficiency anemia due to chronic blood loss (820967280) Iron deficiency anemia due to chronic blood loss (D50.0) Active confirmed Problem Gastrointestinal hemorrhage (45120789) GI bleed (K92.2) Active confirmed Vital Signs Temperature 97.7 degrees Fahrenheit 07/28/2025 Blood pressure diastolic 01 mm Hg 07/28/2025 Height 72 in 07/28/2025 Blood pressure systolic 001 mm Hg 07/28/2025 Weight 221 lbs 07/28/2025 BMI 29.97 kg/m2 07/28/2025 Encounters Encounter Location Date Provider Diagnosis [facility] [address] [facility] [address] [place] [address] 03/03/2025 He Myers Constipation K59.00 ; Iron deficiency anemia due to chronic blood loss D50.0 ; Rectal bleeding K62.5 and Hemorrhoids K64.9 [facility] [address] [place] [address] 07/28/2025 He Myers Iron deficiency anem ia D50.9 ; Constipation K59.00 ; Rectal bleeding K62.5 ; Iron deficiency anemia due to chronic blood loss D50.0 and Hemorrhoids K64.9 [facility] [address] [place] [address] 12/28/2024 He Myers Iron deficiency anem ia [...] D50.0) Continue the Iron twice a day prison. Continue the omeprazole Overall, Jose appears very [...] Provider Name:He Myers , 01/26/2026 09:00:00 AM, [address] [place] [address], [address], [place], [address], Insurance Providers Payer Name Payer Address Payer Phone Subscriber Number Group Number Insured Name Patient Relationship to Insured Coverage Start Date Coverage End Date [facility] [address] [place] [address] [id number] JAZMYN JOSE Self - patient is the [...] negative colonoscopy prior to his hospitalization at [facility] that was nonrevealing. His anemia resolved after his hemorrhoid surgery with Dr. Robin in March 2025.He did receive IV iron infusions with Dr. Epps as well Denies [place],DM,CVA,Lung disease,renal dise ase Elevated PSA for which he un derwent a prostate biopsy with Dr. Allred in 06/2025 Surgical History Surgery Date(Month/Year) Hemorrhoidectomy 03/[address] Collette russell Inguinal hernia
--- OUTSIDE RECORDS SUMMARY | 2025-08-10 08:50 | XMS_ITS | Clinical Summary ---
Author Organization [facility] Address [address] [place] [address] Care Team Providers Care Baker Pie Name Role Phone Unavailable Primary Care Provider [...]
== END 2025-08-10 08:31 | disposition home or self-care (01) ==
LOC: HO.MRI 08:30
PROVIDERS: PCP Internal Medicine; Visit Provider Urology
DX: N41.9 Inflammatory disease of prostate, unspecified (principal); R97.20 Elevated prostate specific antigen [PSA]; C61 Malignant neoplasm of prostate; Z19.1 Hormone sensitive malignancy status
CPT/HCPCS: 72197; 76377; A9585

== ENCOUNTER 2025-09-01 08:24 | Outpatient (AMB) | payer OTHER, SELFPAY ==
--- NOTE | 2025-09-01 08:25 | MHC.OFFVIS ---
Intake Visit Reasons: 5w/MRI SET (no ua) Intake Note: Patient is present for 5 wk follow up Urology Med: Finasteride ( gastro DC 1 mo ago) Antibiotic Allergy: None Blood Thinner: None Imaging : Prostate MRI 08/10/25 Ingot Buggy Operator Required: No Accompanied by: Self / Same As Patient Allergies No Known Allergies Allergy (Verified 09/01/25 08:26) HPI Comments Details: Jamey is a pleasant male. He is a patient of Dr. Perales. He is seen for the following urologic conditions - prostate cancer Printed copies of biopsy results provided Printed copies of MRI provided Discussion regarding favorable, high volume, organ confined disease In this age group recommendation would be robotic prostatectomy At this point he would like to consider options Should continue with finasteride 3m f/u PSA Prostate Cancer Grade Group 1 and 2 Histologic type: Adenocarcinoma, acinar type Histologic grade: Debra score: 7 (3+4) (left base medial, left mid lateral and medial, right base lateral and medial, right mid lateral and medial) 6 (3+3) (left base lateral, left apex lateral and medial) % of pattern 4: 20% % of pattern 5: 0% Grade group: 2 and 1 Tumor quantitation: Number cores positive: 10 Total number of cores: 13 % of tissue involved: 38% Periprostatic fat inv.: Not identified Seminal vesicle inv.: Not identified Perineural inv.: Present Lymphatic and/or vascular invasion: Not identified PSAs: 03/23 16.4, 05/23 17.9 PFSH Medical History Subclinical hypothyroidism Elevated PSA Spondylosis Lesion of liver Diverticular disease of colon Establishing care with new doctor, encounter for Benign skin lesion Kidney lesion Chewing tobacco dependence Pulmonary nodules Severe anemia Bleeding hemorrhoids Surgical History H/O hemorrhoidectomy (04/07/25) Hx of colonoscopy (12/28/24) Hx of esophagogastroduodenoscopy (12/28/24) Family History Father Lung cancer Mother No problems noted. Social History Household Members: None Housing: House Are you a primary daycare provider to a significant other at home: No Do you presently have visiting nurse or other home services: No Alcohol intake: current Alcohol intake frequency: a few times a month Patient Tobacco Use Status: Current everyday Tobacco user Tobacco use type: Smokeless Tobacco e-Cigarette/Vaping Use: Never Used Second Hand Smoke Exposure: No Substance Use Type: Marijuana Advance Directives Date on File: 12/27/24 service: Yes Current occupational status: employed Cognitive needs: No Hearing needs: No Vision needs: Yes (rx glasses) Review of Systems Const Denies chills and Denies fever(s) Card Reports no additional complaints and Denies syncope Resp Denies cough GI Denies abdominal pain and Denies heartburn Reports as per HPI and Denies change in libido Neuro Denies syncope Psych Denies change in libido Endo Denies change in libido Physical Exam Const General: cooperative, healthy appearing, comfortable and no acute distress Orientation/consciousness: patient oriented x3 HEENT Face and sinus: Yes normal facial exam Mouth: moist mucous membranes Neck Neck: Yes normal visual inspection, Yes full ROM and Yes trachea midline Chest Chest palpation & inspection: normal inspection of the chest Resp Effort & Inspection: normal respiratory effort, able to speak in complete sentences and no respiratory distress GI Inspection: Yes normal to inspection Back/Spine/Pelvis Cervical Spine: normal cervical lordosis Thoracic/Lumbar Spine: thoracic and lumbar spine normal to inspection Skin General skin exam: no rashes or lesions noted Neuro General: patient oriented x3, gait normal, tone normal and moves all extremities Extrem General: Yes normal to inspection and Yes capillary refill normal Assessment & Plan Assessment & Plan (1) Hormone sensitive prostate cancer: Code(s): C61 - Malignant neoplasm of prostate; Z19.1 - Hormone sensitive malignancy status Category: Medical Plan Three-month follow-up PSA Orders: Orders PSA,Total (Free>4and<10) 3 Months C61 - Malignant neoplasm of prostate, Z19.1 - Hormone sensitive malignancy status Patient Instructions: This note is constructed using voice recognition software. While every effort has been made to ensure accuracy educational speech language clinician errors may have been included. Imaging studies, laboratory and physical exam results were discussed and reviewed in detail. No major barriers to patient understanding were identified. An opportunity to ask questions regarding the treatment plan was provided. All questions were answered. The patient expressed understanding and agreement with the above treatment plan. The patient is aware they should contact our office by phone for worsening of their current condition or the appearance of new urologic symptoms. Compliance is encouraged with any medications and followup testing that is ordered. It is a privilege to participate in the urologic care of your patient. If you have any questions or concerns regarding treatment for the above conditions, or other urologic issues, please do not hesitate to contact me. The office telephone contact is [phone]. Sincerely, Dr Kashif Allred MD, [facility] - Urology Compassionate Specialist Care for the Genitourinary System Coding Level of Care Code Est Pt Level 4 (33784) Complex visit Add On G2211 Diagnoses Hormone sensitive prostate cancer C61; Z19.1
--- OUTSIDE RECORDS SUMMARY | 2025-09-01 09:00 | XMS_ITS | Clinical Summary ---
Author Organization [facility] Address [address] [place] [address] Care Team Providers Care Freight Separator Name Role Phone Unavailable Primary Care Provider [...] Depression Screening 09/29/2024 COVID-19 Vaccine ( - 2024-2 6 season) 2025 Influenza Vaccine (#1) 2025 RSV [...]
--- OUTSIDE RECORDS SUMMARY | 2025-09-01 09:00 | XMS_ITS | Patient Health Record ---
Author Organization [facility] Address [address] [place] [address] Care Team Providers Care Pharmacist Critical Care Name Role Phone ZACHARY DODSON Primary Care Provider He Hackett Unavailable [phone] Allergies No Known Allergies Results Component Value Reference Range Flag Notes Complete Blood Count Auto Di ff Reviewed date:12/28/2024 01:03:31 PM Interpretation: Performing Lab:[facility], [address] [place] [id number] Notes/Report: White Blood Count 6.0 4.8-10.8 X10*3/uL N Red Blood Count 4.43 4.60-5.80 X10*6/uL L Hemoglobin 8.6 14.0-18.0 g/dl L Hematocrit 28.8 42.0-52.0 % L Mean Corpuscular Volume 65.0 80.0-98.0 fL L Mean Corpuscular Hemoglobin 19.4 27.0-33.0 pg L Mean Corpuscular HGB Conc 29.9 31.0-36.0 g/dl L Red Cell Distribution Width 26.5 11.0-16.0 % H Platelet Count 231 160-400 X10*3/uL N Neutrophils Percent Auto 64.6 45-73 % N Imm Gran Pct Auto 0.3 0.0-0.4 % N Lymphocytes Percent Auto 21.2 20-40 % N Monocytes Percent Auto 11.8 2-11 % H Eosinophils Percent Auto 1.8 0-4 % N Basophils Percent Auto 0.3 0-2 % N NRBC Pct Auto 0.0 0.0-0.2 /100WBC N Neutrophils Absolute Auto 3.9 2.0-8.3 x10*3/uL N Imm Gran Abs Auto 0.02 0.00-0.03 X10*3/uL N Lymphocytes Absolute Auto 1.3 1.2-4.9 X10*3/uL N Monocytes Absolute Auto 0.7 0.1-1.2 X10*3/uL N Eosinophils Absolute Auto 0.1 0.0-0.4 X10*3/uL N Basophils Absolute Auto 0.0 0.0-0.2 X10*3/uL N NRBC Abs Auto 0.000 0.0-0.012 X10*3/uL N Basic Metabolic Panel Reviewed date:12/28/2024 01:03:24 PM Interpretation: Performing Lab:[address] [phone] Notes/Report: Sodium 141 135-145 mmol/L N Potassium 3.6 3.3-5.1 mmol/L N Chloride 110 96-108 mmol/L H Carbon Dioxide 25 22-29 mmol/L N Anion Gap 10 12-20 L Blood Urea Nitrogen 10 9-16 mg/dL N Creatinine 0.78 0.5-1.4 mg/dL N Creatinine Clr Calc Pharmacy 127.9 eGFR (calculated [...] 15 mL/min/1.73m2 Glucose Random 88 60-115 mg/dL N Calcium 8.9 8.4-10.2 mg/dL N Basic Metabolic Panel Fastin g Reviewed date:12/28/2024 01:03:16 PM Interpretation: Performing Lab:[address] [id number] Notes/Report: Glucose Fasting 89 60-99 mg/dL N Pathology Reviewed date:01/01/2025 01:59:03 PM Interpretation: Performing Lab:[address] [id number] Notes/Report: Reason For Referral No Information Medications Medication SIG (Take, Route, Frequency, Duration) Notes Start Date End Date Status Ferrous Sulfate 324 MG Tablet Delayed Release 1 tablet Orally TWO TIMES A DAY 03/03/2025 Active Dulcolax 10 MG Suppository 1 Rectal Once every morning; Duration: 30 days 07/28/2025 Active Propecia Active Omeprazole 20 MG Capsule Delayed Release 1 capsule 1/2 to 1 hour before morning meal Orally Once a day Active Immunizations Vaccine Route Administration Date Status Comme nts Influenza Unknown 07/28/2025 Refused Social History Tobacco Use: Social History Observation Description Date Details (start date - stop date) Never Smoker NA - NA Social History Drug/Alcohol: Social Info Question Answer Notes AUDIT-C (Standard) Did you have a drink containing alcohol in the past year? Yes How often did you have a drink containing alcohol in the past year? 2 to 4 times a month (2 points) How many drinks did you have on a typical day when you were drinking in the past year? 1 or 2 drinks (0 point) How often did you have six or more drinks on one occasion in the past year? 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 Section Notes: drinks one day a week on sat 2-3 drinks in the evening drinks one day a week on sat 2-3 drinks in the evening Problems Problem Type SNOMED Code ICD Code Onset Dates Problem Status W/U Status Risk Notes Problem Rectal bleeding (89223866) Rectal bleeding (K62.5) Active confirmed Problem Hemorrhoids (08747943) Hemorrhoids (K64.9) Active confirmed Problem Constipation (45842500) Constipation (K59.00) Active confirmed Problem Iron deficiency anemia (23149776) Iron deficiency anemia (D50.9) Active confirmed Problem Iron deficiency anemia due to chronic blood loss (926036385) Iron deficiency anemia due to chronic blood loss (D50.0) Active confirmed Problem Gastrointestinal hemorrhage (32828826) GI bleed (K92.2) Active confirmed Vital Signs Temperature 97.7 degrees Fahrenheit 07/28/2025 Blood pressure diastolic 01 mm Hg 07/28/2025 Height 72 in 07/28/2025 Blood pressure systolic 001 mm Hg 07/28/2025 Weight 221 lbs 07/28/2025 BMI 29.97 kg/m2 07/28/2025 Encounters Encounter Location Date Provider Diagnosis [facility] [address] [place] [phone] 03/03/2025 He Myers Constipation K59.00 ; Iron deficiency anemia due to chronic blood loss D50.0 ; Rectal bleeding K62.5 and Hemorrhoids K64.9 [facility] [address] [place] [address] 07/28/2025 He Myers Iron deficiency anem ia D50.9 ; Constipation K59.00 ; Rectal bleeding K62.5 ; Iron deficiency anemia due to chronic blood loss D50.0 and Hemorrhoids K64.9 [facility] [address] [place] [phone] 12/28/2024 He Myers Iron deficiency anem ia D50.9 and GI bleed K92.2 [facility] [address] [place] [phone] 07/28/2025 He Myers Assessments Encounter Date Diagnosis (ICD Code) Assessment [...] D50.0) Continue the Iron twice a day senior living. Continue the omeprazole Overall, Jose appears very [...] 01/10/2025. 12/28/2024 GI bleed (ICD-10 - K92.2) 07/28/2025 Constipation (ICD-10 - K59.00) I will [...] keep you advised of his progress. 03/03/2025 Rectal bleeding (ICD-10 - K62.5) Overall, [...] Folate 12/28/2024 Next Appt Details Provider Name:He Mikala Myers , 01/26/2026 09:00:00 AM, [address] [place] [address], [address], [place], [address], Insurance Providers Payer Name Payer Address Payer Phone Subscriber Number Group Number Insured Name Patient Relationship to Insured Coverage Start Date Coverage End Date [facility] [address] [place] [phone] [id number] [id number] JOSE Self - patient is the insured Medical (General) History Medical History History ICD [...] negative colonoscopy prior to his hospitalization at [facility] that was nonrevealing. His anemia resolved after his hemorrhoid surgery with Dr. Robin in March 2025.He did receive IV iron infusions with Dr. Epps as well Denies MS,DM,CVA,Lung disease,renal dise ase Elevated PSA for which he un derwent a prostate biopsy with Dr. Allred in 06/2025 Surgical History Surgery Date(Month/Year) Inguinal hernia Hemorrhoidectomy 03/[address] Collette russell
== END 2025-09-01 10:16 | disposition home or self-care (01) ==
LOC: HO.HUSH 08:25
PROVIDERS: PCP Internal Medicine; Visit Provider Urology
DX: C61 Malignant neoplasm of prostate (principal); Z19.1 Hormone sensitive malignancy status
CPT/HCPCS: 99214; G2211